=== PATIENT | female | born 1940 | race Caucasian/White ===

== ENCOUNTER 2024-07-19 19:56 | Emergency (ER) | payer MEDICARE, OTHER, SELFPAY ==
[2024-07-19 19:57] VITALS: BP 148/110; PULSE 93; PULSE 97; RESP 30; TEMP 36.8; O2SAT 100; O2SAT 97
--- NOTE | 2024-07-19 20:01 | XR_ITS ---
Examination: CTA chest, with intravenous contrast. CTA abdomen, with intravenous contrast. CTA pelvis, with intravenous contrast. 2-D sagittal and coronal reconstructions. 3-D reconstructions. Date and time of exam: July 20, 2024 0001 hrs. Indications: Onset chest pain shortness of breath abdominal pain today CTDI vol (mgy) 9.97 DLP (MGycm) 644 Technique: Multiple CTA images, 2.0 mm slice thickness, obtained chest, abdomen, pelvis, with the high-resolution 64 slice scanner. 100 cc Isovue-370 is administered intravenously. Sagittal and coronal 2-D reconstructions are obtained. 3-D reconstructions, angiographic images are obtained. 3-D postprocessing, including vascular maximum intensity projections. Low dose protocols were performed. One or more of the following dose reduction techniques were used; automated exposure control, adjustment of the mA and/or KV according to patient size, use of iterative reconstruction technique. Findings: Thoracic aortic calcification no aneurysmal dilatation No pulmonary artery emboli Bilateral foci of parenchymal opacity consistent with pneumonia, more prominent in the right lung Secretions in the right bronchi 17 mm right liver cyst, 16mm hypodense posterior right lobe liver lesion No intrahepatic biliary tract dilatation Gallbladder is not visualized No pancreatic or adrenal mass Mild right hydronephrosis, no ureteral calculi Heavy abdominal aortic calcification no aneurysmal dilatation No bowel obstruction No pericecal inflammatory change Atrophic uterus Distended urinary bladder Fat-containing left femoral hernia Hypodense right adnexal mass 3 cm Impression: No thoracic aortic aneurysm dilatation Negative for pulmonary artery emboli Scattered foci of pneumonia in both lungs 16mm hyperdense posterior right lobe liver lesion, consider MRI abdomen liver follow-up pre and postcontrast Mild right hydronephrosis no ureteral calculi No bowel obstruction appendicitis or diverticulitis pattern Recommend pelvic sonography to assess 3 cm hypodense right adnexal mass
[2024-07-19] MEDS: ALPRazoLAM 0.25 MG TABLET 0.5 MG PO (20:02)
[2024-07-19 20:44] VITALS: BMI 33.8
[2024-07-19 20:44] LABS: Basophils # (Auto) 0.1 Thou/mm3 (0.0-0.2); Basophils % (Auto) 1 % (0-2.5); Eosinophils # (Auto) 0.3 Thou/mm3 (0.0-0.5); Eosinophils % (Auto) 3 % (0-10); Hematocrit 25.6 % (36.0-46.0); Hemoglobin 7.9 g/dL (12.0-16.0); Immature Granulocytes % (Auto) 1 % (0-0); Immature Granulocytes Auto 0.05 Thou/mm3 (0.00-0.00); Lymphocytes # (Auto) 0.8 Thou/mm3 (1.0-4.8); Lymphocytes % (Auto) 8 % (10-50); Mean Corpuscular HGB Conc 30.9 g/dl (31.0-37.0); Mean Corpuscular Hemoglobin 24.2 pg (25.0-35.0); Mean Corpuscular Volume 79 fL (80-100); Monocytes # (Auto) 0.9 Thou/mm3 (0.0-0.8); Monocytes % (Auto) 9 % (0-12); Neutrophils # (Auto) 8.2 Thou/mm3 (1.8-7.7); Neutrophils % (Auto) 80 % (37-80); Nucleated Red Blood Cell % 0 /100 WBC (0); Platelet Count 291 Thou/mm3 (140-440); Red Blood Count 3.26 Miln/mm3 (4.00-5.20); White Blood Count 10.3 Thou/mm3 (3.6-11.0)
[2024-07-19 20:52] LABS: Collection Type, Urine Clean Catch; Squamous Epithelial Cell,Urine 0 /hpf (0-5)
[2024-07-19 20:54] LABS: Base Excess 0 (-3-3); HCO3 23 mEq/L (20-26); Inspired Oxygen, FIO2 21 %; O2 Saturation 98 % (91-98); PCO2 32 mmHg (32.0-48.0); PO2 83 mmHg (83-108); pH, Arterial 7.47 (7.35-7.45)
[2024-07-19 20:56] LABS: Allen Test Performed/OK; Puncture Site Right Radial
[2024-07-19 20:57] LABS: D-Dimer 511 ng/mL (<600)
[2024-07-19 21:00] LABS: Alanine Aminotransferase 12 U/L (10-49); Albumin, Serum 3.8 gm/dL (3.4-4.8); Albumin/Globulin Ratio 1.7 (1.2-2.2); Alkaline Phosphatase 128 U/L (46-116); Anion Gap 7 (7-16); Aspartate Amino Transferase 19 U/L (0-34); BUN/Creatinine Ratio 17 Ratio (12-20); Bilirubin,Total < 0.2 mg/dL (0.3-1.2); Blood Urea Nitrogen 20 mg/dL (9-23); Calcium 8.8 mg/dL (8.3-10.6); Carbon Dioxide 22.2 mMol/L (20.0-31.0); Chloride 106 mMol/L (98-107); Creatinine (Component) 1.2 mg/dL (0.6-1.3); Estimated Creatinine Clearance 34.4 mL/min (>60); Globulin 2.2 gm/dL (2.3-3.5); Glucose 98 mg/dL (74-106); Magnesium 1.9 mg/dL (1.6-2.6); Osmolality,Calculated 272 (275-295); Potassium 4.8 mMol/L (3.4-5.1); Sodium 135 mMol/L (136-145); Thyroid Stimulating Hormone 2.87 uIU/mL (0.55-4.78); Troponin I < 0.020 ng/mL (0.0-0.045); eGFR 44 See Note
[2024-07-19 21:15] LABS: Bilirubin,Urine Negative (Negative); Blood,Urine Negative (Negative); Clarity,Urine Clear (Clear/Hazy); Color,Urine Yellow (Lt Yel-Yel); Culture Indicated,Urine Not Indicated; Glucose, Urine Negative (Negative); Hyaline Casts,Urine < 1 /hpf (0-1); Ketones,Urine Negative (Negative); Leukocyte Esterase,Urine Negative (Negative); Nitrite,Urine Negative (Negative); PH,Urine 5.5 (5.0-7.0); Protein,Urine Negative (Neg - Trace); RBC,Urine < 1 /hpf (0-3); Urobilinogen,Urine Negative mg/dL (0.0-1.0); WBC,Urine 1 /hpf (0-5)
[2024-07-19 21:24] LABS: B-Type Natriuretic Peptide 120 pg/mL (0-100)
[2024-07-19] MEDS: DiphenhydrAMINE 25 MG CAPSULE 50 MG PO (21:27)
[2024-07-19 22:40] VITALS: BP 128/62; PULSE 92; RESP 22; TEMP 36.6; O2SAT 98
[2024-07-19] MEDS: LORazepam 2 MG/ML VIAL IVP (23:37)
[2024-07-19 23:38] VITALS: BP 163/70; PULSE 100; RESP 20; O2SAT 98
--- NOTE | 2024-07-20 00:11 | EDNOTE_ITS ---
ED SOB =RME/HPI General Chief Complaint: Shortness of Breath/Dyspnea Stated Complaint: SHORTNESS OF BREATH Time Seen by Provider: 07/19/24 20:00 Arrival date/time: 07/19/24 19:56 RME / HPI RME / HPI Narrative: This section includes all my notes and documentations, including HPI, PE, and ED course. Matty Church MD HPI: 83-year-old female here with about a week history of worsening cough, productive cough, purulent sputum, and dyspnea. No fever. No chest pain. No other complaints. ROS: All negative except as documented in HPI. Physical Exam: General: Alert and oriented. Appears severely anxious. Eyes: Conjunctivae and lids clear. EOMI. PERRL. ENT: No nasal congestion. Neck: Supple. No JVD. Heart: RRR. Lungs: No respiratory distress. Good air movement with rales. Abdomen: Soft and nontender. Back: No CVA tenderness. Legs: Lower leg edema. Skin: Warm and dry. Neuro: Alert and oriented X 3. Cranial Nerves II-XII grossly intact. No peripheral motor deficits. I reviewed all diagnostic test results. My interpretation of the EKG is sinus rhythm with nonspecific ST?T changes. My review of the CT report is multifocal pneumonia. Blood tests and urine tests unremarkable. At this point, diagnoses include pneumonia. Treatment here included Rocephin and Zithromax. Significant improvement noted. I discussed the case with our hospitalist. About the presentation and exam and diagnostics and treatments here. And need of further care in the hospital. After evaluation, declined to accept the patient because the patient does not meet the criteria for admission. Based on my best medical judgment, made decision no further evaluation or treatment indicated at this time. Patient understands and agrees to the discharge instructions customized and printed, see below. Discharge instructions from Dr. Church: --After evaluation, you have pneumonia. There is no life-threatening condition, such as heart attack or pulmonary embolism (blood clots in your lungs) or pneumothorax (collapsed lung). --We asked our hospitalist service to admit you into the hospital for treatment. But after evaluation, they declined because you don't meet the criteria for admission. --No physical exertion for 3 days to help rest the lungs. ?-No smoking or exposure to smoking or pets or dust or cold or humidity. --Zithromax and cefdinir to kill the germs causing the bronchitis. --Prednisone to help decrease the swelling in the airways. --See a private doctor on 07/23/2024 for recheck and further care. Ask for help until you are completely better. Ask to review all test results and official radiology reports, to make sure you receive all necessary follow-ups and monitoring. --Seek immediate medical care with worsening or with any concerns. Matty Church MD Related Data Home Medications ?Medication ?Instructions ?Recorded ?Confirmed amitriptyline 50 mg tablet 150 mg PO HS 06/24/21 04/16/24 cetirizine 10 mg tablet 10 mg PO QDAY 06/24/21 04/16/24 omeprazole 40 mg capsule,delayed 40 mg PO QDAY 06/24/21 04/16/24 release zolpidem 10 mg tablet 10 mg PO HS 06/24/21 04/16/24 silver sulfadiazine 1 % topical 1 applic topical BID 03/29/24 03/29/24 cream Previous Rx's ?Medication ?Instructions ?Recorded aspirin 81 mg tablet,delayed 81 mg PO QDAY 30 days #30 tabs 03/29/24 release prednisone 10 mg tablet See Taper PO QDAY rash #10 tabs 04/18/24 azithromycin 500 mg tablet 500 mg PO QDAY 3 days #3 tabs 07/20/24 (Zithromax TRI-GODWIN) cefdinir 300 mg capsule 300 mg PO BID #14 caps 07/20/24 prednisone 20 mg tablet 40 mg PO DAILY 3 days #6 tabs 07/20/24 Allergies Allergy/AdvReac Type Severity Reaction Status Date / Time clindamycin Allergy Intermediate Rash Verified 04/17/24 14:59 Penicillins Allergy Intermediate Rash Verified 03/28/24 15:33 Course Quality Measures none Orders Category Date Time Status Bedside COVID-19 Antigen Test NOW Care 07/19/24 20:01 Active Bedside Influenza A&B Antigen Test NOW Care 07/19/24 20:01 Completed EKG (ED ONLY) *Do not use* NOW Care 07/19/24 20:01 Completed Saline [Insert IV] NOW Care 07/19/24 20:01 Active Straight [In and Out Catheter] X1 Care 07/19/24 20:[address] angio chest abdomen pelvis Stat Exams 07/19/24 20:01 Taken EKG (ED Only) Stat Exams 07/19/24 20:01 Ordered ABG [Arterial Blood Gas] Stat Lab 07/19/24 20:50 Completed BNP [B-Type Natriuretic Peptide] Stat Lab 07/19/24 20:17 Completed CBC Stat Lab 07/19/24 20:17 Completed CMP [Comprehensive Metabolic Panel] Stat Lab 07/19/24 20:17 Completed D-Dimer Stat Lab 07/19/24 20:17 Completed Magnesium Stat Lab 07/19/24 20:17 Completed TSH [Thyroid Stimulating Hormone] Stat Lab 07/19/24 20:17 Completed Troponin I Stat Lab 07/19/24 20:17 Completed UA, C/S IF [Urinalysis, C/S if Indicated] Stat Lab 07/19/24 20:43 Completed ALPRazoLAM [Xanax] Med 07/19/24 20:00 Discontinued 0.5 mg PO X1 ONE Azithromycin Inj [Zithromax Inj] 500 mg Med 07/20/24 01:26 Active Sodium Chloride 0.9% 250 ml [Ns] 250 ml IV X1 DiphenhydrAMINE [Benadryl] Med 07/19/24 21:19 Discontinued 50 mg PO X1 ONE LORazepam [Ativan Inj] Med 07/19/24 23:32 Discontinued 2 mg IVP X1 ONE cefTRIAXone [Rocephin] 1,000 mg Med 07/20/24 01:26 Discontinued Sodium Chloride 0.9% (P) [Ns 0.9% (P)] 50 ml IV X1 Vital Signs Vital signs: Vital Signs Temperature 98.3 F 07/19/24 19:57 Pulse Rate 97 07/19/24 19:57 Respiratory Rate 30 H 07/19/24 19:57 Blood Pressure 148/110 H 07/19/24 19:57 Pulse Oximetry (%) 100 07/19/24 19:57 Oxygen Delivery Method Room Air 07/19/24 19:57 Shortness of Breath / Dyspnea Patient data External records reviewed:: [facility] previous records and EMS form Clinical information provided by:: patient, EMS and family Social determinants that could affect healthcare access:: none Patient has the following chronic illnesses:: History of CVA How is presenting disease/condition affected by chronic disease/condition?: uneffected by Evaluation data The following diagnostics were reviewed and interpreted by me:: lab results, radiology exam(s) and EKG tracing(s) (Sinus rhythm with nonspecific ST-T changes) Lab and/or radiology exams considered but not ordered:: None Interpretation Summary: Community-acquired pneumonia Medications / Prescriptions Medications or Prescriptions considered but not ordered:: None Medication administrations:: Medication Administration History Azithromycin 500 mg/ Sodium (Chloride) 250 mls @ 250 mls/hr IV X1 ONE Stop: 07/20/24 02:25 Discontinued Medications Alprazolam (Alprazolam 0.25 Mg Tablet) 0.5 mg PO X1 ONE Stop: 07/19/24 20:01 Last Admin: 07/19/24 20:02 Dose: 0.5 mg Documented By: ADAM Diphenhydramine HCl (Diphenhydramine 25 Mg Capsule) 50 mg PO X1 ONE Stop: 07/19/24 21:20 Last Admin: 07/19/24 21:27 Dose: 50 mg Documented By: ADAM Ceftriaxone Sodium 1,000 mg/ (Sodium Chloride) 50 mls @ 100 mls/hr IV X1 ONE Stop: 07/20/24 01:55 Last Admin: 07/20/24 01:40 Dose: 100 mls/hr Documented By: STACIE Lorazepam (Lorazepam 2 Mg/Ml Vial) 2 mg IVP X1 ONE Stop: 07/19/24 23:33 Last Admin: 07/19/24 23:37 Dose: 2 mg Documented By: JUAN Zithromax and Rocephin Consultations Consultation(s) initiated? (list below): No Diagnosis Shortness of Breath Differential Diagnosis: acute exacerbation of chronic obstructive airways disease, congestive heart failure, community acquired pneumonia, asthma with exacerbation and pulmonary embolism Most likely diagnosis given after review of the tests above:: Pneumonia Admission Indicated Admission indicated?: not indicated Explain why admission is indicated or not indicated:: Hospitalist service declined after evaluation Admission Request Was there a request for admission?: No Disposition Plan Disposition Plan: Discharge Discharge Attestation Discharge Attestation: The patient and all family members were given an opportunity to ask questions and understood the discharge instructions. Discharge instructions specifically effects, indications for sooner follow up or return to the emergency department, and the expected course of current diagnosis. Patient condition: Stable Discharge Plan Plan Patient Disposition: HOME (Self Care) Prescriptions/Referrals Prescriptions/Med Rec: New prednisone 20 mg tablet 40 mg PO DAILY 3 Days Qty: 6 0RF Taper: Prednisone Taper 20 mg DAILY for 2 Days and 0 Hour 10 mg DAILY for 2 Days and 0 Hour 5 mg DAILY for 7 Days and 0 Hour cefdinir 300 mg capsule 300 mg PO BID Qty: 14 0RF azithromycin [Zithromax TRI-GODWIN] 500 mg tablet 500 mg PO QDAY 3 Days Qty: 3 0RF No Action omeprazole 40 mg capsule,delayed release(DR/EC) 40 mg PO QDAY Patient Comments: TAKE ONE CAPSULE BY MOUTH EVERY DAY FOR GASTRITIS AND HEARTBURN cetirizine 10 mg tablet 10 mg PO QDAY Patient Comments: TAKE ONE TABLET BY MOUTH EVERY DAY FOR ALLERGY amitriptyline 50 mg tablet 150 mg PO HS Patient Comments: TAKE THREE TABLET BY MOUTH EVERY DAY AT BED TIME zolpidem 10 mg tablet 10 mg PO HS Patient Comments: TAKE ONE TABLET BY MOUTH EVERY DAY AT BED TIME prednisone 10 mg tablet See Taper PO QDAY Qty: 10 0RF Taper: Prednisone Taper 20 mg DAILY for 2 Days and 0 Hour 10 mg DAILY for 2 Days and 0 Hour 5 mg DAILY for 7 Days and 0 Hour silver sulfadiazine 1 % cream 1 applic TOPICAL BID Patient Comments: APPLY TO THE AFFECTED AREA(S) TRANSDERMALLY TWICE DAILY FOR BURN aspirin 81 mg Tablet,Delayed Release (Dr/Ec) 81 mg PO QDAY 30 Days Qty: 30 3RF Referrals: Pito (PCP),MD Carlito [Primary Care Provider] - In 1 week Problem List Clinical Impression: Pneumonia Patient/Caregiver Discharge Instructions Discharge Activity: activity as tolerated Education Materials: ED Pneumonia (Adult) Additional Instructions: Discharge instructions from Dr. Church: --After evaluation, you have pneumonia. There is no life-threatening condition, such as heart attack or pulmonary embolism (blood clots in your lungs) or pneumothorax (collapsed lung). --We asked our hospitalist service to admit you into the hospital for treatment. But after evaluation, they declined because you don't meet the criteria for admission. --No physical exertion for 3 days to help rest the lungs. ?-No smoking or exposure to smoking or pets or dust or cold or humidity. --Zithromax and cefdinir to kill the germs causing the bronchitis. --Prednisone to help decrease the swelling in the airways. --See a private doctor on 07/23/2024 for recheck and further care. Ask for help until you are completely better. Ask to review all test results and official radiology reports, to make sure you receive all necessary follow-ups and monitoring. --Seek immediate medical care with worsening or with any concerns. Print Language: Urdu Stand Alone Forms: [employer] Award Info., Patient Portal Info Letter
--- NOTE | 2024-07-20 00:50 | PRELIM_ITS ---
CT angiogram of the chest, abdomen and pelvis with intravenous contrast (axial sections with sagittal and coronal reformats) July 20, 2024 0001 hoursClinical History: Shortness of breath and abdomin al pain.Comparison: None.Findings:The thoracic aorta demonstrates mild atheromatous calcification wit hout evidence of dissection or aneurysm. The origins of the right brachiocephalic, left common caroti d and left subclavian arteries are patent.The abdominal aorta demonstrates mild atheromatous calcifi cation without evidence of dissection or aneurysm. The celiac, superior mesenteric, inferior mesenter ic and bilateral renal arteries are patent to the extent visualized. The common iliac, external yvonne c and internal iliac arteries are patent bilaterally.There is no filling defect within the pulmonary artery divisions to suggest pulmonary thromboembolism. No evidence of mediastinal mass or lymphadenop athy. There is no pericardial effusion.Consolidations in the bilateral lower lobes and in the right u pper lobe.Mucous plugging in the left lower lobe. No evidence of pleural effusion or pneumothorax. Th e spleen, pancreas, and adrenals are unremarkable.S/p cholecystectomy. Right liver lobe hypodense le antonia measuring 1.8 cm.Small hiatus hernia.Small left renal simple cyst. No hydronephrosis.No evidence of bowel obstruction. No evidence of appendicitis. There is no significant mesenteric or retroperi toneal adenopathy.The urinary bladder is unremarkable. There is no free fluid, free air or abscess. D egenerative changes of the imaged portions of the spine. No acute fractures.Dilated left atrium.Coron billie arteries calcifications.Right ovarian cystic lesion measuring 3.0 cm.Fecal loading.Impression:No evidence of aortic dissection or aneurysm.No evidence of pulmonary thromboembolism.Multifocal pneumon ia.Mucous plugging in the left lower lobe.Coronary arteries calcifications. If acute myocardial infa rction is clinically suspected consider correlation with troponin.Fecal loading.Right ovarian cystic lesion, follow-up with ultrasound is recommended.Small hiatus hernia.Hypodense liver lesion, follow-u p with MRI for characterization should be considered.Dilated left atrium. Report Electronically Nataliia d By: Subhash Shoemaker 07/20/2024 12:49:52 AM [EST]
[2024-07-20 01:26] VITALS: BP 117/59; PULSE 84; RESP 20; TEMP 36.5; O2SAT 97
[2024-07-20] MEDS: cefTRIAXone 1,000 MG in SODIUM CHLORIDE 0.9% (P) 50 ML 100 MG IV (01:40)
[2024-07-20] MEDS: AZITHROMYCIN INJ 500 MG in SODIUM CHLORIDE 0.9% 250 ML 250 ML 250 MG IV (02:18)
[2024-07-20 03:05] VITALS: BP 94/59; PULSE 83; RESP 16; TEMP 37.2; O2SAT 95
== END 2024-07-20 03:06 | disposition home or self-care (01) ==
PROVIDERS: Emergency Provider Emergency Medicine; PCP Family Medicine
DX: J18.9 Pneumonia, unspecified organism (principal)
CPT/HCPCS: 51701; 36415; 36600; 71275; 74174; 80053; 81001; 82803; 83735; 83880; 84443; 84484; 85025; 85379; 87400; 87811; 96360; 96365; 96367; 99285; A4649; J0456; J0696; J2060; J7050; Q9967; A9270

== ENCOUNTER → 2024-07-19 | Outpatient (CLI) | payer MEDICARE, OTHER, SELFPAY | END | disposition home or self-care (01) | LOC: SMRI 16:16 | PROVIDERS: Referring Provider Psychiatry & Neurology Neurology; Visit Provider Psychiatry & Neurology Neurology | DX: Z53.29 Procedure and treatment not carried out because of patient's decision for other reasons (principal) ==

== ENCOUNTER → 2024-07-19 | Outpatient (CLI) | payer MEDICARE, OTHER, SELFPAY ==
[2024-07-19 14:10] LABS: Anion Gap 7 (7-16); BUN/Creatinine Ratio 19 Ratio (12-20); Blood Urea Nitrogen 17 mg/dL (9-23); Calcium 8.7 mg/dL (8.3-10.6); Calcium (Corrected) 8.7 mg/dL (8.5-10.1); Carbon Dioxide 23.4 mMol/L (20.0-31.0); Chloride 108 mMol/L (98-107); Creatinine (Component) 0.9 mg/dL (0.6-1.3); Glucose 87 mg/dL (74-106); Osmolality,Calculated 276 (275-295); Phosphorous 2.7 mg/dL (2.4-5.1); Potassium 4.3 mMol/L (3.4-5.1); Sodium 138 mMol/L (136-145); eGFR > 60 See Note
== END | disposition home or self-care (01) ==
PROVIDERS: PCP Family Medicine; Referring Provider Family Medicine; Visit Provider Family Medicine
DX: Z00.00 Encounter for general adult medical examination without abnormal findings (principal); R53.83 Other fatigue; Z13.89 Encounter for screening for other disorder
CPT/HCPCS: 36415; 80069

== ENCOUNTER 2024-08-30 18:23 | Emergency (ER) | payer MEDICARE, OTHER, SELFPAY ==
[2024-08-30 18:33] VITALS: BP 154/62; PULSE 103; RESP 18; TEMP 36.8; O2SAT 98; BMI 20.7
--- NOTE | 2024-08-30 19:00 | EDNOTE_ITS ---
ED General RME/HPI General Chief complaint: Shortness of Breath/Dyspnea Stated complaint: SOB Time Seen by Provider: 08/30/24 18:53 Arrival date/time: 08/30/24 18:23 RME / HPI RME / HPI narrative: Dr. Rice?s Main ED Evaluation: 83yo female with no significant past medical history presents to the ED for vague complaints. Per EMS, they were called out due to the patient having right leg cramping. They noted the patient to be winded , so they administered 2 albuterol treatments en route. No other history provided at this time. Related Data Home Medications ?Medication ?Instructions ?Recorded ?Confirmed amitriptyline 50 mg tablet 150 mg PO HS 06/24/2104/16 cetirizine 10 mg tablet 10 mg PO QDAY 06/24/2104/16 omeprazole 40 mg capsule,delayed 40 mg PO QDAY 1 04/16/24 release zolpidem 10 mg tablet 10 mg PO HS 06/24/21 4 silver sulfadiazine 1 % topical 1 applic topical BID 0 03/29/24 03/29/24 cream Previous Rx's ?Medication ?Instructions ?Recorded aspirin 81 mg tablet,delayed 81 mg PO QDAY 30 days #30 tabs 03/29/24 release prednisone 10 mg tablet See Taper PO QDAY rash #10 t abs 04/18/24 cefdinir 300 mg capsule 300 mg PO BID #14 caps 07/20 Allergies Allergy/AdvReac Type Severity Reaction Status Date / Time clindamycin Allergy Intermediate Rash Verified 04/17/24 14:59 Penicillins Allergy Intermediate Rash Verified 03/28/24 15:33 Review of Systems Review of Systems Systems Reviewed: All systems reviewed, normal except as documented Past Medical History Past Medical History NEUROLOGIC: Positive Dementia; Negative Neurological Disorders or Seizures CARDIAC: Negative Cardiac Disorders or Congestive Heart Failure RESPIRATORY: Negative Chronic Obstructive Pulmonary Disease (COPD) or Asthma GASTROINTESTINAL: Positive Gastrointestinal Disorders and Gastroesophageal Reflux Disease GENITOURINARY: Negative Genitourinary Disorders or Renal Disease MUSCULOSKELETAL: Positive Musculoskeletal Disorders and Arthritis ENT: Positive Cataracts ENDOCRINE: Negative Endocrine Disorders, Diabetes Mellitus Type 1 or Diabetes Mellitus Type 2 HEMATOLOGIC: Negative Blood Disorders, Anemia or Sickle Cell Disease PSYCHO/SOCIAL: Positive Depression OTHER HISTORY: Positive Blood Transfusions, Blood Transfusion Reaction, Anesthesia Reactions and Chicken Pox Family History FAMILY HISTORY: Negative Family Psychiatric Problems, Family Respiratory Disorders or Family Gastrointestinal Problems Surgical History SURGICAL: Positive Cardiac Surgery, Carotid Endarterectomy, Oral Surgery and Tonsillectomy Social History SMOKING STATUS: Never smoker SUBSTANCE USE: does not use ED Exam Narrative Physical exam: GENERAL APPEARANCE: alert and oriented x 4, well-developed, well-nourished, no acute distress VITALS: All vitals were reviewed and the pulse ox is 98% on 6L/NC, which is abnormal according to my interpretation. HEENT: Normocephalic, atraumatic; pupils equal, round, reactive to light; EOMI; mucous membranes pink, moist; oropharynx clear NECK: Supple LUNGS: CTABL; no wheezes, no rales, no rhonchi HEART: Regular rate, regular rhythm; normal S1, S2; no murmurs ABDOMEN: non distended; normal BS; soft, no tenderness, no guarding, no rebound; no masses, no organomegaly, no hernia BACK: no CVA tenderness EXTREMITIES: atraumatic; 3+ pitting edema bilaterally NEUROLOGIC: awake; alert and oriented x4; cranial nerves II-XII grossly intact; no focal sensory or motor deficits PSYCHIATRIC: appropriate mood and affect SKIN: warm, dry, normal color; no rashes Course Quality Measures none Orders Category Date Time Status Bedside Blood Glucose NOW Care 08/30/24 19:38 Active Telephone Repairer NOW Care 08/30/24 19:38 Active Continuous Pulse Oximetry NOW Care 08/30/24 19:38 Completed Insert IV NOW Care 08/30/24 19:38 Active EKG (ED Only) Stat Exams 08/30/24 19:08 Stop Req US venous doppler LE RT Stat Exams 08/30/24 19:03 Completed Acetaminophen Stat Lab 08/30/24 21:00 Completed Alcohol, Blood Medical Stat Lab 08/30/24 21:00 Completed Ammonia Stat Lab 08/30/24 21:00 Completed BNP [B-Type Natriuretic Peptide] Stat Lab 08/30/24 21:00 Completed CBC Stat Lab 08/30/24 21:00 Completed Comprehensive Metabolic Panel Stat Lab 08/30/24 21:00 Completed Drug Screen,Urine Stat Lab 08/30/24 21:14 Completed Free T4 (Free Thyroxine) Stat Lab 08/30/24 21:00 Completed Magnesium Stat Lab 08/30/24 21:00 Completed Thyroid Stimulating Hormone Stat Lab 08/30/24 21:00 Completed Troponin I Stat Lab 08/30/24 21:00 Completed Urinalysis Stat Lab 08/30/24 21:15 Completed Acetaminophen Tab [Tylenol ES Tab] Med 08/30/24 19:09 Discontinued 1,000 mg PO X1 ONE Ibuprofen Tab [Motrin Tab] Med 08/30/24 19:09 Discontinued 600 mg PO X1 ONE Vital Signs Vital signs: Vital Signs Temperature 98.3 F 08/30/24 18:33 Pulse Rate 103 H 08/30/24 18:33 Respiratory Rate 18 08/30/24 18:33 Blood Pressure 154/62 H 08/30/24 18:33 Pulse Oximetry (%) 98 08/30/24 18:33 Oxygen Delivery Method Nasal Cannula 08/30/24 18:33 Oxygen Flow Rate 6 08/30/24 18:33 [facility] Patient data External records reviewed:: [facility] previous records (Per chart review, patient was seen here on 07/20/24 for pneumonia.) Clinical information provided by:: patient and EMS Social determinants that could affect healthcare access:: none Patient has the following chronic illnesses:: none How is presenting disease/condition affected by chronic disease/condition?: no chronic disease Evaluation data The following diagnostics were reviewed and interpreted by me:: lab results and radiology exam(s) Lab and/or radiology exams considered but not ordered:: none Interpretation Summary: WBC count is normal, CMP is normal, troponin is normal, BNP is 329, Free T4 is normal, TSH is normal, UA is unremarkable, UDS is negative, Blood Alcohol is negative, according to my interpretation. [facility] Report Signed Patient: WILVER WATSON. Record#: [id number] Birthdate: 1940 Age/Sex: 83 / F Location: [facility] [place] Attending Dr: Ordering Physician: Francis Rice MD Date of Service: 08/30/24 Procedure(s): US venous doppler ERIN PERDUE Accession Number(s): [id number] cc: Nish Meneses MD; Francis Rice MD~ Examination: Duplex scan of the lower extremity, unilateral right complete Date and time of exam: August 30, 20242024 hrs. Indications: Leg pain beginning 3 months ago Technique: Duplex scan of the extremity veins using B-mode/grayscale imaging and Doppler spectral analysis and color flow Attention is directed to internal echogenicity, compression and augmentation involving these veins, color flow assessment, spectral analysis Findings: Major deep venous structures in the extremity demonstrate normal course and caliber. There is no evidence of deep vein thrombosis. Normal color flow and spectral analysis Impression: Negative for DVT.. Dictated By: Nish Meneses MD Signed By: <Electronically signed by Nish Meneses MD in OV> 08/30/242057 Medications Medications considered but not ordered:: none Medication administrations:: Medication Administration History Discontinued Medications Acetaminophen (Acetaminophen 500 Mg Tablet) 1,000 mg PO X1 ONE Stop: 08/30/24 19:10 Last Admin: 08/30/24 19:33 Dose: 1,000 mg Documented By: EVELYNE Ibuprofen (Ibuprofen Tab 600 Mg Tablet) 600 mg PO X1 ONE Stop: 08/30/24 19:10 Last Admin: 08/30/24 19:33 Dose: 600 mg Documented By: EVELYNE see above Consultations Consultation(s) initiated? (list below): No Diagnosis Differential Diagnosis ED Complaint MDM: DVT, musculoskeletal pain, contusion Most likely diagnosis given after review of the tests above:: see below Admission Indicated Admission indicated?: not indicated Explain why admission is indicated or not indicated:: Admission criteria not met. Admission Request Was there a request for admission?: No Disposition Plan Disposition Plan: Discharge Discharge Attestation Discharge Attestation: The patient and all family members were given an opportunity to ask questions and understood the discharge instructions. Discharge instructions specifically effects, indications for sooner follow up or return to the emergency department, and the expected course of current diagnosis. Patient condition: Stable Medical Decision Making Differential Diagnosis Differential Diagnosis: DVT, musculoskeletal pain, contusion Lab Data 08/30/24 21:00 08/30/24 21:00 Labs: Lab Results 08/30/24 08/30/24 08/30/24 Range/Units 21:00 21:14 21:15 WBC 11.0 (3.6-11.0) Thou/mm3 RBC 3.41 L (4.00-5.20) Miln/mm3 Hgb 7.6 L (12.0-16.0) g/dL Hct 26.1 L (36.0-46.0) % MCV 77 L (80-100) fL MCH 22.3 L (25.0-35.0) pg MCHC 29.1 L (31.0-37.0) g/dl RDW Std Deviation 46.5 H (36.4-46.3) fL Plt Count 499 H (140-440) Thou/mm3 Neut % (Auto) 75 (37-80) % Lymph % (Auto) 9 L (10-50) % [place] % (Auto) 12 (0-12) % Eos % (Auto) 3 (0-10) % Baso % (Auto) 1 (0-2.5) % Neut # (Auto) 8.3 H (1.8-7.7) Thou/mm3 Lymph # (Auto) 1.0 (1.0-4.8) Thou/mm3 [place] # (Auto) 1.3 H (0.0-0.8) Thou/mm3 Eos # (Auto) 0.3 (0.0-0.5) Thou/mm3 Baso # (Auto) 0.1 (0.0-0.2) Thou/mm3 Immature Gran # (Auto) 0.05 H (0.00-0.00) Thou/mm3 Absolute Nucleated RBC 0.00 (0.00-0.00) Thou/mm3 Immature Gran % 1 H (0-0) % Nucleated RBC % 0 (0) /100 WBC Sodium 140 (136-145) mMol/L Potassium 4.0 (3.4-5.1) mMol/L Chloride 109 H (98-107) mMol/L Carbon Dioxide 22.4 (20.0-31.0) mMol/L Anion Gap 9 (7-16) BUN 19 (9-23) mg/dL Creatinine 0.7 (0.6-1.3) mg/dL Estim Creat Clear Calc 42.2 L (>60) mL/min eGFR > 60 (60 - ) See Note BUN/Creatinine Ratio 27 H (12-20) Ratio Glucose 94 (74-106) mg/dL Calculated Osmolality 281 (275-295) Calcium 8.3 (8.3-10.6) mg/dL Corrected Calcium 8.3 L (8.5-10.1) mg/dL Magnesium 1.9 (1.6-2.6) mg/dL Total Bilirubin < 0.2 L (0.3-1.2) mg/dL AST 23 (0-34) U/L ALT 27 (10-49) U/L Alkaline Phosphatase 129 H (46-116) U/L Ammonia < 10 L (11-32) uMol/L Troponin I 0.030 (0.0-0.045) ng/mL B-Natriuretic Peptide 329 H (0-100) pg/mL Total Protein 6.5 (5.7-8.2) gm/dL Albumin 4.0 (3.4-4.8) gm/dL Globulin 2.5 (2.3-3.5) gm/dL Albumin/Globulin Ratio 1.6 (1.2-2.2) TSH 2.07 (0.55-4.78) uIU/mL Free T4 1.05 (0.89-1.76) ng/dL Ur Collection Type Catheter Urine Color Lt-Yellow (Lt Yel-Yel) Urine Clarity Clear (Clear/Hazy) Urine pH 5.5 (5.0-7.0) Ur Specific [place] 1.025 (1.001-1.035) Urine Protein Negative (Neg - Trace) Urine Glucose (UA) Negative (Negative) Urine Ketones Negative (Negative) Urine Blood Negative (Negative) Urine Nitrite Negative (Negative) Urine Bilirubin Negative (Negative) Urine Urobilinogen (Auto) Negative (0.0-1.0) mg/dL Ur Leukocyte Esterase Negative (Negative) Urine RBC < 1 (0-3) /hpf Urine WBC < 1 (0-5) /hpf Ur Squamous Epith Cells 1 (0-5) /hpf Urine Bacteria None (None) Urine Opiates Screen Negative (Negative) Urine Fentanyl Screen Negative (Negative) Acetaminophen 14.3 (10.0-20.0) mcg/mL Ur Barbiturates Screen Negative (Negative) U Amphetamin/Meth Scrn Negative (Negative) U Benzodiazepines Scrn Negative (Negative) U Cocaine Metab Screen Negative (Negative) U Marijuana (THC) Screen Negative (Negative) Ethyl Alcohol < 3.0 (0-10.0) mg/dL Discharge Plan Plan Patient Disposition: HOME (Self Care) Disposition Comment: Stable for discharge Patient condition on transfer: Stable Prescriptions/Referrals Prescriptions/Med Rec: No Action omeprazole 40 mg capsule,delayed release(DR/EC) 40 mg PO QDAY Patient Comments: TAKE ONE CAPSULE BY MOUTH EVERY DAY FOR GASTRITIS AND HEARTBURN cetirizine 10 mg tablet 10 mg PO QDAY Patient Comments: TAKE ONE TABLET BY MOUTH EVERY DAY FOR ALLERGY amitriptyline 50 mg tablet 150 mg PO HS Patient Comments: TAKE THREE TABLET BY MOUTH EVERY DAY AT BED TIME zolpidem 10 mg tablet 10 mg PO HS Patient Comments: TAKE ONE TABLET BY MOUTH EVERY DAY AT BED TIME prednisone 10 mg tablet See Taper PO QDAY Qty: 10 0RF Taper: Prednisone Taper 20 mg DAILY for 2 Days and 0 Hour 10 mg DAILY for 2 Days and 0 Hour 5 mg DAILY for 7 Days and 0 Hour silver sulfadiazine 1 % cream 1 applic TOPICAL BID Patient Comments: APPLY TO THE AFFECTED AREA(S) TRANSDERMALLY TWICE DAILY FOR BURN aspirin 81 mg Tablet,Delayed Release (Dr/Ec) 81 mg PO QDAY 30 Days Qty: 30 3RF cefdinir 300 mg capsule 300 mg PO BID Qty: 14 0RF Referrals: Pito (PCP),MD Carlito [Primary Care Provider] - In 1 week Problem List Clinical Impression: Chronic leg pain, Chronic pain Patient/Caregiver Discharge Instructions Discharge Activity: activity as tolerated Education Materials: Medicine for Pain, Chronic Pain Therapies Mind Body, ED Chronic Pain, ED Myalgias, ED RICE Additional Instructions: Please return to the emergency department for any worsening or any further medical problems Otherwise you should follow-up with your primary care doctor within the next several days Print Language: Mongolian Stand Alone Forms: [employer] Award Info., Patient Portal Info Letter
--- NOTE | 2024-08-30 19:03 | XR_ITS ---
Examination: Duplex scan of the lower extremity, unilateral right complete Date and time of exam: August 30, 2024 202 hrs. Indications: Leg pain beginning 3 months ago Technique: Duplex scan of the extremity veins using B-mode/grayscale imaging and Doppler spectral analysis and color flow Attention is directed to internal echogenicity, compression and augmentation involving these veins, color flow assessment, spectral analysis Findings: Major deep venous structures in the extremity demonstrate normal course and caliber. There is no evidence of deep vein thrombosis. Normal color flow and spectral analysis Impression: Negative for DVT..
[2024-08-30 19:13] VITALS: PULSE 86; RESP 20; O2SAT 99
[2024-08-30 19:19] VITALS: BP 140/63; PULSE 60; RESP 24; TEMP 36.7; O2SAT 98
[2024-08-30] MEDS: ACETAMINOPHEN 500 MG TABLET 1000 MG PO (19:33)
[2024-08-30] MEDS: IBUPROFEN TAB 600 MG TABLET PO (19:33)
--- NOTE | 2024-08-30 20:15 | PC.LAC ---
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 Pt in hallway awaiting for room to be clean.
[2024-08-30 21:13] VITALS: BP 137/69; PULSE 82; RESP 22; TEMP 36.6; O2SAT 100
[2024-08-30 21:23] LABS: Collection Type, Urine Catheter
[2024-08-30 21:28] LABS: Bilirubin,Urine Negative (Negative); Blood,Urine Negative (Negative); Clarity,Urine Clear (Clear/Hazy); Color,Urine Lt-Yellow (Lt Yel-Yel); Glucose, Urine Negative (Negative); Ketones,Urine Negative (Negative); Leukocyte Esterase,Urine Negative (Negative); Nitrite,Urine Negative (Negative); PH,Urine 5.5 (5.0-7.0); Protein,Urine Negative (Neg - Trace); RBC,Urine < 1 /hpf (0-3); Specific Gravity,Urine 1.025 (1.001-1.035); Squamous Epithelial Cell,Urine 1 /hpf (0-5); Urobilinogen,Urine Negative mg/dL (0.0-1.0); WBC,Urine < 1 /hpf (0-5)
[2024-08-30 21:30] LABS: Basophils # (Auto) 0.1 Thou/mm3 (0.0-0.2); Basophils % (Auto) 1 % (0-2.5); Eosinophils # (Auto) 0.3 Thou/mm3 (0.0-0.5); Eosinophils % (Auto) 3 % (0-10); Hematocrit 26.1 % (36.0-46.0); Immature Granulocytes % (Auto) 1 % (0-0); Immature Granulocytes Auto 0.05 Thou/mm3 (0.00-0.00); Lymphocytes % (Auto) 9 % (10-50); Mean Corpuscular HGB Conc 29.1 g/dl (31.0-37.0); Mean Corpuscular Hemoglobin 22.3 pg (25.0-35.0); Mean Corpuscular Volume 77 fL (80-100); Monocytes # (Auto) 1.3 Thou/mm3 (0.0-0.8); Monocytes % (Auto) 12 % (0-12); Neutrophils # (Auto) 8.3 Thou/mm3 (1.8-7.7); Neutrophils % (Auto) 75 % (37-80); Nucleated Red Blood Cell % 0 /100 WBC (0); Platelet Count 499 Thou/mm3 (140-440); RDW Standard Deviation 46.5 fL (36.4-46.3); Red Blood Count 3.41 Miln/mm3 (4.00-5.20)
[2024-08-30 21:34] LABS: Amphetamine/Methamp Scrn,U Negative (Negative); Barbiturate Screen,Urine Negative (Negative); Benzodiazepines Screen,Urine Negative (Negative); Benzoylecgonine Screen, Ur Negative (Negative); Fentanyl Screen,Urine Negative (Negative); Opiate Screen,Urine Negative (Negative); THC Screen,Urine Negative (Negative)
[2024-08-30 21:35] LABS: Hemoglobin 7.6 g/dL (12.0-16.0)
[2024-08-30 21:53] LABS: Acetaminophen 14.3 mcg/mL (10.0-20.0); Alanine Aminotransferase 27 U/L (10-49); Albumin/Globulin Ratio 1.6 (1.2-2.2); Alcohol, Blood Medical < 3.0 mg/dL (0-10.0); Alkaline Phosphatase 129 U/L (46-116); Ammonia < 10 uMol/L (11-32); Anion Gap 9 (7-16); Aspartate Amino Transferase 23 U/L (0-34); BUN/Creatinine Ratio 27 Ratio (12-20); Bilirubin,Total < 0.2 mg/dL (0.3-1.2); Blood Urea Nitrogen 19 mg/dL (9-23); Calcium 8.3 mg/dL (8.3-10.6); Calcium (Corrected) 8.3 mg/dL (8.5-10.1); Carbon Dioxide 22.4 mMol/L (20.0-31.0); Chloride 109 mMol/L (98-107); Creatinine (Component) 0.7 mg/dL (0.6-1.3); Estimated Creatinine Clearance 42.2 mL/min (>60); Free T4 (Free Thyroxine) 1.05 ng/dL (0.89-1.76); Globulin 2.5 gm/dL (2.3-3.5); Glucose 94 mg/dL (74-106); Magnesium 1.9 mg/dL (1.6-2.6); Osmolality,Calculated 281 (275-295); Sodium 140 mMol/L (136-145); Thyroid Stimulating Hormone 2.07 uIU/mL (0.55-4.78); Total Protein 6.5 gm/dL (5.7-8.2); eGFR > 60 See Note
[2024-08-30 22:01] LABS: B-Type Natriuretic Peptide 329 pg/mL (0-100)
[2024-08-31 00:05] VITALS: BP 143/73; PULSE 78; RESP 187; TEMP 36.6; O2SAT 98
--- NOTE | 2024-08-31 00:15 | PC.NURSE ---
Pt ready for discharge home, Ankita (dtr) informed.
== END 2024-08-31 01:06 | disposition home or self-care (01) ==
PROVIDERS: Emergency Provider Emergency Medicine; PCP Family Medicine
DX: M79.604 Pain in right leg (principal); G89.29 Other chronic pain; R06.02 Shortness of breath
CPT/HCPCS: 36415; 80053; 80307; 80320; 80329; 81001; 82140; 83735; 83880; 84439; 84443; 84484; 85025; 87400; 87811; 93971; 99284; A9270; G0480

== ENCOUNTER → 2024-09-08 | Outpatient (CLI) | payer MEDICARE, OTHER, SELFPAY ==
--- NOTE | 2024-09-08 14:30 | XR_ITS ---
Examination: MRI of brain without intravenous contrast. MRI brain with intravenous contrast. Date and time of exam:September 08, 2024 1535 hrs. Indications: Increasing memory loss headaches dizziness years Technique: Multiple axial and sagittal images of the brain to been obtained. Siemens high-resolution 1.52 Luisa short bore scanner utilized. Sagittal sections, T1 weighted images, TR 500, TE 14, are performed. Axial sections proton-density and T2-weighted images have been obtained. Inversion recovery axial images, TR 9260, TE 111, TR 2500. Diffusion weighted images, axial sections, TR 4800, TE 128, B value 1000. Axial sections, ADC map, TR 4800, TE 128. Axial and coronal images were also obtained post 11 cc gadolinium administered intravenously. Findings:: Enlargement of the sella turcica is not present. The optic chiasm and infundibular stalk are not remarkable. There is no localized enlargement of the medulla or merary. Fourth ventricle and cerebellar tonsils appear normal in position. No subacute area of hemorrhage density is seen. Fourth ventricle is midline. Mass in the cerebellopontine angle region is not evident. 7th and 8th nerve complexes exhibit symmetry Globes are symmetrical Orbital musculature including medial lateral rectus muscles do not exhibit abnormality Increased white matter signal is mild Effacement of the cortical sulcal markings is not identified. Mass effect upon the ventricular system is not identified. Diffusion-weighted images demonstrate no focus of restricted diffusion Prominent mastoiditis Contrast images demonstrate no abnormal enhancing cerebellar or cerebral lesions Impression: Negative for acute hemorrhage mass effect or midline shift No acute infarct Significant bilateral mastoiditis
== END | disposition home or self-care (01) ==
PROVIDERS: PCP Family Medicine; Referring Provider Psychiatry & Neurology Neurology; Visit Provider Psychiatry & Neurology Neurology
DX: H70.93 Unspecified mastoiditis, bilateral (principal)
CPT/HCPCS: 70553; A9579

== ENCOUNTER 2024-09-22 12:55 | Emergency (ER) | payer MEDICARE, OTHER, SELFPAY ==
[2024-09-22 13:01] VITALS: PULSE 87; RESP 18; O2SAT 97; BMI 22.8
[2024-09-22 13:25] VITALS: BP 161/81; PULSE 83; RESP 20; TEMP 36.6; O2SAT 99
--- NOTE | 2024-09-22 13:27 | PC.NURSE ---
Pt. here from home to room 4, pt. states she lives with her . Pt. is a GCS of 14, pt. states she is here because of her daughter Ankita. Pt. has severe swelling to her lower extremities bilateral. Pt. came with pressure dressings to her lower extremities bilateral. Dressings are dry and intact. Dr. Phillips removed dressings to lower extremities. Pt. left lower leg has brown skin that is flaking. Edema to lower extremities is +4, skin is very tight, red and shiny. Pt. has +4 edema to both knees, pt. states right knee is bothering her, pt. states she had surgery on left knee as a kid. Pt. states she lives with her and smocking machine operator Omar states that there is not a . Pt. just keeps saying that her right knee hurts her. Pt. states she does walk. Laboratory Operations Coordinator Omar states that pt.'s neighbor called pt.'s daughter Ankita because pt. was walking around outside with her purse talking and was confused.
--- NOTE | 2024-09-22 13:59 | XR_ITS ---
Exam: Chest 1 view, AP Date and time of exam: 09/22/2024, 1:16 PM Comparison: 04/04/2024 Findings: Normal heart size. No mediastinal adenopathy. No acute fracture No pulmonary edema or pneumonia. Chronic interstitial changes. Impression: No active disease.
--- NOTE | 2024-09-22 14:00 | XR_ITS ---
Examination: CT brain head without contrast. 2-D sagittal coronal reconstructions Date and time of exam:09/22/2024, 2:18 PM CTDI: vol (mGy):47.5 DLP: (mGycm):947 COMPARISON: 03/28/2024 INDICATION: Mental status changes Technique: Multiple CT axial sections of the brain have been obtained, 5 mm slice thickness. Contrast has not been administered. 2-D sagittal, coronal reconstructions have been obtained Low dose protocols were performed. One or more of the following dose reduction techniques were used; automated exposure control, adjustment of the mA and/or KV according to patient size, use of iterative reconstruction technique. Findings: No significant ventricular enlargement. Intra-axial or extra-axial hemorrhage density is not seen. No mass effect or midline shift Basal cisterns are not remarkable. Fourth ventricle is midline. Cranial vault intact. Impression: Negative for acute hemorrhage, mass effect or midline shift
[2024-09-22 14:15] VITALS: BP 153/63; PULSE 76; RESP 18; TEMP 36.7; O2SAT 96
--- NOTE | 2024-09-22 14:17 | PD.EDADULT ---
ED General RME/HPI General Chief complaint: Altered Mental Status Stated complaint: AMS Arrival date/time: 09/22/24 12:55 RME / HPI RME / HPI narrative: Patient is a 83 years old female with PMH of chronic lymphedema presented to the ED BIBA from home after her neighbour found her wandering around and mumbling incoherently. She reports she was feeling fine until someone called ambulance on her. She denies any complaints other then her chronic right knee pain and BLE swelling and erythema with scaling, which started recently and she was prescribed antibiotics. She denies any dysuria symptoms, chest pain, SOB, abdominal pain, nausea, vomiting, diarrhea. She is AAO x1 to self only. Daughter was contacted over the phone reporting her neighbour called her when she saw her wandering around and mumbling, she decided to call 911. Related Data Home Medications ?Medication ?Instructions ?Recorded ?Confirmed amitriptyline 50 mg tablet 150 mg PO HS 06/24/21 04/16/24 cetirizine 10 mg tablet 10 mg PO QDAY 06/24/21 04/16/24 omeprazole 40 mg capsule,delayed 40 mg PO QDAY 06/24/21 04/16/24 release zolpidem 10 mg tablet 10 mg PO HS 06/24/21 04/16/24 silver sulfadiazine 1 % topical 1 applic topical BID 03/29/24 03/29/24 cream Previous Rx's ?Medication ?Instructions ?Recorded aspirin 81 mg tablet,delayed 81 mg PO QDAY 30 days #30 tabs 03/29/24 release prednisone 10 mg tablet See Taper PO QDAY rash #10 tabs 04/18/24 cefdinir 300 mg capsule 300 mg PO BID #14 caps 07/20/24 Allergies Allergy/AdvReac Type Severity Reaction Status Date / Time clindamycin Allergy Intermediate Rash Verified 04/17/24 14:59 Penicillins Allergy Intermediate Rash Verified 03/28/24 15:33 Review of Systems Review of Systems Systems Reviewed: All systems reviewed, normal except as documented ED Exam Narrative Physical exam: Gen: Well-developed and well-nourished elderly female. HEENT: NCAT, PERRLA, EOMI, MMM, anicteric conjunctivae. CVS: normal S1 and S2. RRR. Systolic murmur over aortic area. Resp: CTA B/L. No rhonchi, rales, crackles or wheezing. Abd: soft, non-tender, non-distended. BS+ in all 4 quadrants. MSK: Good ROM in BUE & BLE. Non-pitting edema and erythema with scaling of the skin over BLE. Neuro: CN II-XII grossly intact. Strength 5/5 in BUE & BLE. Alert and oriented x1 to self only. Course Course Course Narrative: Daughter (decision maker) was contacted over the phone and condition of the patient was discussed, she was explained that it is not safe to discharge patient home to stay alone. Daughter asked if we can admit patient or discharge her to SNF, given current circumstances it will be difficult for her to take care of the patient. She was explained that the patient does not meet admission criteria and cannot be discharged to SNF from the ED. She ultimately agreed to take patient home and stay with her until her PCP can place her to SNF. Quality Measures none Orders Category Date Time Status CT Screening X1 Care 09/22/24 14:00 Completed Insert IV NOW Care 09/22/24 13:[address] head/brain wo con Stat Exams 09/22/24 14:00 Completed CXRP [XR chest 1V portable] Stat Exams 09/22/24 13:59 Completed CBC Stat Lab 09/22/24 15:58 Completed CMP [Comprehensive Metabolic Panel] Stat Lab 09/22/24 13:50 Completed Urinalysis Stat Lab 09/22/24 15:22 Completed Sodium Chloride 0.9% 250 ml [Ns] 250 ml Med 09/22/24 15:43 Discontinued IV 999 mls/hr Vital Signs Vital signs: Vital Signs Temperature 97.9 F 09/22/24 13:25 Pulse Rate 83 09/22/24 13:25 Respiratory Rate 20 09/22/24 13:25 Blood Pressure 161/81 H 09/22/24 13:25 Pulse Oximetry (%) 99 09/22/24 13:25 Oxygen Delivery Method Room Air 09/22/24 13:25 [facility] Patient data External records reviewed:: [facility] previous records and EMS form Clinical information provided by:: patient, EMS and family Social determinants that could affect healthcare access:: housing Patient has the following chronic illnesses:: Chronic lymphedema How is presenting disease/condition affected by chronic disease/condition?: uneffected by Evaluation data The following diagnostics were reviewed and interpreted by me:: lab results and radiology exam(s) Lab and/or radiology exams considered but not ordered:: Brain MRI Interpretation Summary: Mild hyperkalemia Medications Medications considered but not ordered:: Kayexalate Medication administrations:: Medication Administration History Discontinued Medications Sodium Chloride (Ns) 250 mls @ 999 mls/hr IV .Q16M ONE Stop: 09/22/24 15:58 Last Infusion: 09/22/24 16:06 Dose: Infused Documented By: Admin: 09/22/24 15:50 Dose: 999 mls/hr Documented By: ED NS 250 cc IV x1. Consultations Consultation(s) initiated? (list below): No Diagnosis Differential Diagnosis ED Complaint MDM: CVA, worsening underlying dementia, medication/substance induced encephalop Most likely diagnosis given after review of the tests above:: Worsening underlying dementia. Admission Indicated Admission indicated?: not indicated Explain why admission is indicated or not indicated:: Patient presented with AMS, was AAO x1 to self only and was fixating on specific things. She was recently evaluated by neurology, MRI of the brain was performed Admission Request Was there a request for admission?: No Disposition Plan Disposition Plan: Discharge Discharge Attestation Discharge Attestation: The patient and all family members were given an opportunity to ask questions and understood the discharge instructions. Discharge instructions specifically effects, indications for sooner follow up or return to the emergency department, and the expected course of current diagnosis. Patient condition: Stable Medical Decision Making MDM Narrative MDM Narrative: Patient does not meet any admission criteria, her AMS is likely due to worsening of underlying undiagnosed dementia. Patient needs customer operations manager and her daughter agreed to take care of her until her PCP can place her to SNF. We will not change her antibiotic regiment for possible cellulitis and home medications. She does not have any sustemic signs of infection like fever or leukocytosis. She is at low suspicion for stroke given her clinical picture and her CT scan was negative for acute hemorrhage. Differential Diagnosis Differential Diagnosis: CVA, worsening underlying dementia, medication/substance induced encephalop Lab Data 09/22/24 15:58 09/22/24 13:50 Labs: Lab Results 09/22/24 09/22/24 09/22/24 Range/Units 13:50 15:22 15:58 WBC 9.4 (3.6-11.0) Thou/mm3 RBC 3.38 L (4.00-5.20) Miln/mm3 Hgb 7.3 L (12.0-16.0) g/dL Hct 24.3 L (36.0-46.0) % MCV 72 L (80-100) fL MCH 21.6 L (25.0-35.0) pg MCHC 30.0 L (31.0-37.0) g/dl RDW Std Deviation 44.3 (36.4-46.3) fL Plt Count 386 D (140-440) Thou/mm3 Neut % (Auto) 78 (37-80) % Lymph % (Auto) 10 (10-50) % [place] % (Auto) 10 (0-12) % Eos % (Auto) 1 (0-10) % Baso % (Auto) 1 (0-2.5) % Neut # (Auto) 7.3 (1.8-7.7) Thou/mm3 Lymph # (Auto) 0.9 L (1.0-4.8) Thou/mm3 [place] # (Auto) 0.9 H (0.0-0.8) Thou/mm3 Eos # (Auto) 0.1 (0.0-0.5) Thou/mm3 Baso # (Auto) 0.1 (0.0-0.2) Thou/mm3 Immature Gran # (Auto) 0.02 H (0.00-0.00) Thou/mm3 Absolute Nucleated RBC 0.00 (0.00-0.00) Thou/mm3 Immature Gran % 0 (0-0) % Nucleated RBC % 0 (0) /100 WBC Sodium 141 (136-145) mMol/L Potassium 5.8 H (3.4-5.1) mMol/L Chloride 108 H (98-107) mMol/L Carbon Dioxide 24.1 (20.0-31.0) mMol/L Anion Gap 9 (7-16) BUN 24 H (9-23) mg/dL Creatinine 1.1 (0.6-1.3) mg/dL Estim Creat Clear Calc 28.2 L (>60) mL/min eGFR 49 L (60 - ) See Note BUN/Creatinine Ratio 22 H (12-20) Ratio Glucose 111 H (74-106) mg/dL Calculated Osmolality 286 (275-295) Calcium 9.5 (8.3-10.6) mg/dL Corrected Calcium 9.5 (8.5-10.1) mg/dL Total Bilirubin 0.2 L (0.3-1.2) mg/dL AST 36 H (0-34) U/L ALT 21 (10-49) U/L Alkaline Phosphatase 130 H (46-116) U/L Total Protein 7.3 (5.7-8.2) gm/dL Albumin 4.6 (3.4-4.8) gm/dL Globulin 2.7 (2.3-3.5) gm/dL Albumin/Globulin Ratio 1.7 (1.2-2.2) Ur Collection Type Clean Catch Urine Color Lt-Yellow (Lt Yel-Yel) Urine Clarity Clear (Clear/Hazy) Urine pH 7.0 (5.0-7.0) Ur Specific [place] 1.016 (1.001-1.035) Urine Protein Negative (Neg - Trace) Urine Glucose (UA) Negative (Negative) Urine Ketones Negative (Negative) Urine Blood Negative (Negative) Urine Nitrite Negative (Negative) Urine Bilirubin Negative (Negative) Urine Urobilinogen (Auto) Negative (0.0-1.0) mg/dL Ur Leukocyte Esterase Negative (Negative) Urine RBC 1 (0-3) /hpf Urine WBC 1 (0-5) /hpf Ur Squamous Epith Cells 0 (0-5) /hpf Urine Bacteria None (None) Hyaline Casts < 1 (0-1) /hpf Discharge Plan Plan Patient Disposition: HOME (Self Care) Patient condition on transfer: Stable Prescriptions/Referrals Prescriptions/Med Rec: No Action omeprazole 40 mg capsule,delayed release(DR/EC) 40 mg PO QDAY Patient Comments: TAKE ONE CAPSULE BY MOUTH EVERY DAY FOR GASTRITIS AND HEARTBURN cetirizine 10 mg tablet 10 mg PO QDAY Patient Comments: TAKE ONE TABLET BY MOUTH EVERY DAY FOR ALLERGY amitriptyline 50 mg tablet 150 mg PO HS Patient Comments: TAKE THREE TABLET BY MOUTH EVERY DAY AT BED TIME zolpidem 10 mg tablet 10 mg PO HS Patient Comments: TAKE ONE TABLET BY MOUTH EVERY DAY AT BED TIME prednisone 10 mg tablet See Taper PO QDAY Qty: 10 0RF Taper: Prednisone Taper 20 mg DAILY for 2 Days and 0 Hour 10 mg DAILY for 2 Days and 0 Hour 5 mg DAILY for 7 Days and 0 Hour silver sulfadiazine 1 % cream 1 applic TOPICAL BID Patient Comments: APPLY TO THE AFFECTED AREA(S) TRANSDERMALLY TWICE DAILY FOR BURN aspirin 81 mg Tablet,Delayed Release (Dr/Ec) 81 mg PO QDAY 30 Days Qty: 30 3RF cefdinir 300 mg capsule 300 mg PO BID Qty: 14 0RF Referrals: Pito (PCP),MD Carlito [Primary Care Provider] - In 1 week Problem List Clinical Impression: Altered mental status Patient/Caregiver Discharge Instructions Other Activity Instructions:: Continue home medications as prescribed. Follow up with PCP within 1 week. Return to the ED if symptoms worsen. Print Language: [place]an Stand Alone Forms: [employer] Award Info., Patient Portal Info Letter MD Attestation Attestation The patient was seen by the PGY 2. I, the supervising physician, also encountered and examined the patient and remained present during the entire ER visit. With the PGY 2 we formulated the encounter, workup, management, treatment, and medical decision making. I agree with the plan and documentation.
[2024-09-22 14:29] LABS: Alanine Aminotransferase 21 U/L (10-49); Albumin, Serum 4.6 gm/dL (3.4-4.8); Albumin/Globulin Ratio 1.7 (1.2-2.2); Alkaline Phosphatase 130 U/L (46-116); Anion Gap 9 (7-16); Aspartate Amino Transferase 36 U/L (0-34); BUN/Creatinine Ratio 22 Ratio (12-20); Bilirubin,Total 0.2 mg/dL (0.3-1.2); Blood Urea Nitrogen 24 mg/dL (9-23); Calcium 9.5 mg/dL (8.3-10.6); Calcium (Corrected) 9.5 mg/dL (8.5-10.1); Carbon Dioxide 24.1 mMol/L (20.0-31.0); Chloride 108 mMol/L (98-107); Creatinine (Component) 1.1 mg/dL (0.6-1.3); Estimated Creatinine Clearance 28.2 mL/min (>60); Globulin 2.7 gm/dL (2.3-3.5); Glucose 111 mg/dL (74-106); Osmolality,Calculated 286 (275-295); Potassium 5.8 mMol/L (3.4-5.1); Sodium 141 mMol/L (136-145); Total Protein 7.3 gm/dL (5.7-8.2); eGFR 49 See Note
[2024-09-22 15:26] LABS: Collection Type, Urine Clean Catch; Squamous Epithelial Cell,Urine 0 /hpf (0-5)
[2024-09-22 15:40] LABS: Bilirubin,Urine Negative (Negative); Blood,Urine Negative (Negative); Clarity,Urine Clear (Clear/Hazy); Color,Urine Lt-Yellow (Lt Yel-Yel); Glucose, Urine Negative (Negative); Hyaline Casts,Urine < 1 /hpf (0-1); Ketones,Urine Negative (Negative); Leukocyte Esterase,Urine Negative (Negative); Nitrite,Urine Negative (Negative); Protein,Urine Negative (Neg - Trace); RBC,Urine 1 /hpf (0-3); Specific Gravity,Urine 1.016 (1.001-1.035); Urobilinogen,Urine Negative mg/dL (0.0-1.0); WBC,Urine 1 /hpf (0-5)
[2024-09-22] MEDS: SODIUM CHLORIDE 0.9% 250 ML 250 ML 999 ML IV (15:50)
[2024-09-22 16:00] VITALS: BP 152/75; PULSE 74; RESP 22; TEMP 36.7; O2SAT 96
[2024-09-22 16:03] LABS: Basophils # (Auto) 0.1 Thou/mm3 (0.0-0.2); Basophils % (Auto) 1 % (0-2.5); Eosinophils # (Auto) 0.1 Thou/mm3 (0.0-0.5); Eosinophils % (Auto) 1 % (0-10); Hematocrit 24.3 % (36.0-46.0); Immature Granulocytes % (Auto) 0 % (0-0); Immature Granulocytes Auto 0.02 Thou/mm3 (0.00-0.00); Lymphocytes # (Auto) 0.9 Thou/mm3 (1.0-4.8); Lymphocytes % (Auto) 10 % (10-50); Mean Corpuscular Hemoglobin 21.6 pg (25.0-35.0); Mean Corpuscular Volume 72 fL (80-100); Monocytes # (Auto) 0.9 Thou/mm3 (0.0-0.8); Monocytes % (Auto) 10 % (0-12); Neutrophils # (Auto) 7.3 Thou/mm3 (1.8-7.7); Neutrophils % (Auto) 78 % (37-80); Nucleated Red Blood Cell % 0 /100 WBC (0); Platelet Count 386 Thou/mm3 (140-440); RDW Standard Deviation 44.3 fL (36.4-46.3); Red Blood Count 3.38 Miln/mm3 (4.00-5.20); White Blood Count 9.4 Thou/mm3 (3.6-11.0)
[2024-09-22 16:19] LABS: Hemoglobin 7.3 g/dL (12.0-16.0)
== END 2024-09-22 18:10 | disposition home or self-care (01) ==
PROVIDERS: Student in an Organized Health Care Education/Training Program; Emergency Provider Emergency Medicine; PCP Family Medicine
DX: R41.82 Altered mental status, unspecified (principal); Z91.83 Wandering in diseases classified elsewhere
CPT/HCPCS: 36415; 70450; 71045; 80053; 81001; 85025; 99284; J7050

== ENCOUNTER → 2024-10-04 | Outpatient (CLI) | payer MEDICARE, OTHER, SELFPAY ==
[2024-10-04 12:35] LABS: Collection Type, Urine Clean Catch
[2024-10-04 13:10] LABS: Bilirubin,Urine Negative (Negative); Blood,Urine Negative (Negative); Clarity,Urine Clear (Clear/Hazy); Color,Urine Lt-Yellow (Lt Yel-Yel); Culture Indicated,Urine Not Indicated; Glucose, Urine Negative (Negative); Hyaline Casts,Urine < 1 /hpf (0-1); Ketones,Urine Negative (Negative); Leukocyte Esterase,Urine Negative (Negative); Nitrite,Urine Negative (Negative); PH,Urine 5.5 (5.0-7.0); Protein,Urine Negative (Neg - Trace); RBC,Urine < 1 /hpf (0-3); Specific Gravity,Urine 1.016 (1.001-1.035); Squamous Epithelial Cell,Urine < 1 /hpf (0-5); Urobilinogen,Urine Negative mg/dL (0.0-1.0); WBC,Urine 1 /hpf (0-5)
== END | disposition home or self-care (01) ==
LOC: SLDO 12:25
PROVIDERS: PCP Family Medicine; Referring Provider Family Medicine; Visit Provider Family Medicine
DX: N39.0 Urinary tract infection, site not specified (principal)
CPT/HCPCS: 81001

== ENCOUNTER 2024-12-22 20:02 | Emergency (ER) | payer MEDICARE, OTHER, SELFPAY ==
[2024-12-22 20:04] VITALS: BP 152/72; PULSE 61; RESP 16; RESP 24; TEMP 37.1; O2SAT 95
--- NOTE | 2024-12-22 20:14 | EDNOTE_ITS ---
Upper Respiratory Inf. RME/HPI General Chief Complaint: Flu Like Symptoms Stated Complaint: COUGH Time Seen by Provider: 12/22/24 20:30 Arrival date/time: 12/22/24 20:02 RME / HPI RME / HPI Narrative: This section includes all my notes and documentations, including HPI, PE, and ED course. Matty Church MD HPI: 84 y/o female [facility]E from [facility] presents to ED c/o productive cough x 4 days with dyspnea and fever. With purulent sputum. No other complaints. ROS: All negative except as documented in HPI. Physical Exam: General: Alert. Hacking cough noted. Eyes: Conjunctivae and lids clear. ENT: No nasal congestion. Neck: Supple. Heart: RRR. Lungs: Mild respiratory distress. Moderately decreased air movement with wheezing and rales. Abdomen: Soft and nontender. Normal bowel sounds. No distension. No rebound or guarding. Back: No CVA tenderness. Skin: Warm and dry. Neuro: Alert and oriented X 1. I reviewed EMS and [place] [facility] notes. I reviewed all diagnostic test results. My interpretation of the EKG: NSR (68 bpm) with no ST-T changes. My interpretation of the chest x-ray is infiltrates. Blood tests and urine tests unremarkable. COVID/influenza negative. At this point, diagnoses include Pneumonia. Treatment here included Albuterol/Ipratroprium Duoneb, Methylprednisolone, IV fluid, Vancomycin, and Rocephin. Recommended treatment at the [place] [facility]. Based on my best medical judgment, made decision no further evaluation or treatment indicated at this time. Printed discharge instructions below. Discharge instructions from Dr. Church: --After extensive evaluation, there is no immediately life-threatening condition for such as heart attack. But we have pneumonia. --Levaquin to kill the germs causing the pneumonia. --Prednisone to help decrease the swelling in the airways. -- DuoNeb every 4-6 hours for 3 days to help keep the airways open. Then as needed for cough or shortness of breath. --See a private doctor next week for recheck if not completely better. --Seek immediate medical care with worsening or with any concerns. Matty Church MD Related Data Home Medications ?Medication ?Instructions ?Recorded ?Confirmed amitriptyline 50 mg tablet 150 mg PO HS 06/24/2104/16 cetirizine 10 mg tablet 10 mg PO QDAY 06/24/2104/16 omeprazole 40 mg capsule,delayed 40 mg PO QDAY 1 04/16/24 release zolpidem 10 mg tablet 10 mg PO HS 06/24/21 4 silver sulfadiazine 1 % topical 1 applic topical BID 0 03/29/24 03/29/24 cream Previous Rx's ?Medication ?Instructions ?Recorded aspirin 81 mg tablet,delayed 81 mg PO QDAY 30 days #30 tabs 03/29/24 release prednisone 10 mg tablet See Taper PO QDAY rash #10 t abs 04/18/24 cefdinir 300 mg capsule 300 mg PO BID #14 caps 07/20 levofloxacin 500 mg tablet 500 mg PO QDAY 10 days #10 tabs 12/22/24 prednisone 20 mg tablet 20 mg PO BID 3 days #6 tabs 12/22/24 Allergies Allergy/AdvReac Type Severity Reaction Status Date / Time clindamycin Allergy Intermediate Rash Verified 04/17/24 14:59 Penicillins Allergy Intermediate Rash Verified 03/28/24 15:33 Review of Systems Review of Systems Systems Reviewed: All systems reviewed, normal except as documented Past Medical History Past Medical History NEUROLOGIC: Positive Dementia GASTROINTESTINAL: Positive Gastrointestinal Disorders and Gastroesophageal Reflux Disease MUSCULOSKELETAL: Positive Arthritis ENT: Positive Cataracts PSYCHO/SOCIAL: Positive Depression OTHER HISTORY: Positive Blood Transfusions, Blood Transfusion Reaction, Anesthesia Reactions and Chicken Pox Surgical History SURGICAL: Positive Cardiac Surgery, Carotid Endarterectomy, Oral Surgery and Tonsillectomy Social History SMOKING STATUS: Former smoker ED Exam Narrative Physical exam: Refer to HPI above Course Course Course Narrative: CXR is ordered for determining the etiology of shortness of breath. Quality Measures none Orders Category Date Time Status Bedside COVID-19 Antigen Test NOW Care 12/22/24 20:18 Active Bedside Influenza A&B Antigen Test NOW Care 12/22/24 20:18 Completed EKG (ED ONLY) *Do not use* NOW Care 12/22/24 20:19 Completed Saline [Insert IV] NOW Care 12/22/24 20:18 Active Straight [In and Out Catheter] X1 Care 12/22/24 20:18 Active EKG (ED Only) Stat Exams 12/22/24 20:19 Draft XR chest 1V portable Stat Exams 12/22/24 20:19 Completed BNP [B-Type Natriuretic Peptide] Stat Lab 12/22/24 20:50 Completed Bilirubin,Direct Stat Lab 12/22/24 20:50 Completed Blood Culture (Lab) Stat Lab 12/22/24 20:20 Ordered CBC Stat Lab 12/22/24 20:50 Completed CMP [Comprehensive Metabolic Panel] Stat Lab 12/22/24 20:50 Completed CRP [C-Reactive Protein] Stat Lab 12/22/24 20:50 Completed ESR [Sed Rate (ESR)] Stat Lab 12/22/24 20:50 Completed Free T4 (Free Thyroxine) Stat Lab 12/22/24 20:50 Completed Lactate (Lactic Acid) Stat Lab 12/22/24 20:50 Completed Magnesium Stat Lab 12/22/24 20:50 Completed Procalcitonin Stat Lab 12/22/24 20:50 Completed TSH [Thyroid Stimulating Hormone] Stat Lab 12/22/24 20:50 Completed Troponin I Stat Lab 12/22/24 20:50 Completed UA, C/S IF [Urinalysis, C/S if Indicated] Stat Lab 12/22/24 22:12 Completed VBG [Venous Blood Gas] Stat Lab 12/22/24 20:50 Completed Albuterol/Ipratr Rt Deirdre [Duoneb Rt Deirdre] Med 12/22/24 20:18 Discontinued 3 ml INH X1 ONE MethylPREDNISolone.* [SoluMEDROL Inj] Med 12/22/24 20:18 Discontinued 125 mg IVP X1 ONE Sodium Chloride 0.9% 250 ml [Ns] 250 ml Med 12/22/24 22:31 Discontinued IV 500 mls/hr Vancomycin Inj 1,000 mg Med 12/22/24 22:30 Active Sodium Chloride 0.9% 500 ml [Ns] 500 ml IV X1 cefTRIAXone/D5w 1gm IV premix [Rocephin/D5w 1gm IV Med 12/22/24 22:30 Discontinued premix] 1 g in 50 ml IV X1 Vital Signs Vital signs: Vital Signs Temperature 98.7 F 12/22/24 20:04 Pulse Rate 61 12/22/24 20:04 Respiratory Rate 16 12/22/24 20:04 Blood Pressure 152/72 H 12/22/24 20:04 Pulse Oximetry (%) 95 12/22/24 20:04 Oxygen Delivery Method Room Air 12/22/24 20:04 Upper Respiratory Infection MDM Narrative MDM Narrative:: Scribe Attestation: I, Carlita Reyes, am scribing for and in the presence of Dr. Church. Provider Notation: Although this document has been carefully reviewed, there may still be some phonetic and other typographical errors.? These errors are purely grammatical due to imperfections in the software program and should not be construed in any way to? compromise the substance of the patient's medical care during this visit. 84 y/o female BIBA from [facility] presents to ED c/o productive cough x 4 days, and respirations of 36 and fever x 1 day. Patient has been coughing up sputum and phlegm. No other complaints. Patient data External records reviewed:: [facility] previous records (Reviewed prior ED records from 08/30/24. Patient was seen for Chronic leg pain.), EMS form and [facility] records Clinical information provided by:: EMS Social determinants that could affect healthcare access:: housing (SNF) Patient has the following chronic illnesses:: Dementia, Gastroesophageal Reflux Disease, Arthritis, Cataracts, Depression How is presenting disease/condition affected by chronic disease/condition?: uneffected by Evaluation data The following diagnostics were reviewed and interpreted by me:: EKG tracing(s) (My interpretation of the EKG: NSR (68 bpm) with no ST-T changes. Matty Church MD) Lab and/or radiology exams considered but not ordered:: None Interpretation Summary: I reviewed all diagnostic test results. My interpretation of the EKG: NSR (68 bpm) with no ST-T changes. My interpretation of the chest x-ray is infiltrates. Blood tests and urine tests unremarkable. COVID/influenza negative. Medications / Prescriptions Medications or Prescriptions considered but not ordered:: None Medication administrations:: Medication Administration History Vancomycin HCl 1,000 mg/ (Sodium Chloride) 500 mls @ 150 mls/hr IV X1 ONE Stop: 12/23/24 01:49 Discontinued Medications Albuterol/Ipratropium (Albuterol/Ipratropium (Duoneb) Rt Deirdre 3 Ml Nebu) 3 ml INH X1 ONE Stop: 12/22/24 20:19 Last Admin: 12/22/24 20:46 Dose: 3 ml Documented By: DM Ceftriaxone Sodium/Dextrose (Rocephin/D5w 1gm Iv Premix) 1 g in 50 mls @ 100 mls/hr IV X1 ONE Stop: 12/22/24 22:59 Sodium Chloride (Ns) 250 mls @ 500 mls/hr IV .Q30M ONE Stop: 12/22/24 23:00 Methylprednisolone Sodium Succinate (Methylprednisolone Sod Succ 62.5 Mg/Ml 2ml Vial) 125 mg IVP X1 ONE Stop: 12/22/24 20:19 Last Admin: 12/22/24 21:19 Dose: 125 mg Documented By: CVL Albuterol/Ipratroprium Duoneb, Methylprednisolone, Rocephin, IV fluid, Vancomycin, and Rocephin. Consultations Consultation(s) initiated? (list below): No Diagnosis Upper Respiratory Differential Diagnosis: upper respiratory infection, croup, otitis media, sinusitis, viral infection, bronchitis, influenza, pharyngitis and other (Pneumonia) Most likely diagnosis given after review of the tests above:: Pneumonia Admission Indicated Admission indicated?: not indicated Explain why admission is indicated or not indicated:: Recommended treatment at the [place] [facility]. Admission Request Was there a request for admission?: No Disposition Plan Disposition Plan: Discharge (Back to [facility]) Discharge Attestation Discharge Attestation: The patient and all family members were given an opportunity to ask questions and understood the discharge instructions. Discharge instructions specifically effects, indications for sooner follow up or return to the emergency department, and the expected course of current diagnosis. Patient condition: Stable Discharge Plan Plan Patient Disposition: Xfer [facility] (SNF) Prescriptions/Referrals Prescriptions/Med Rec: New prednisone 20 mg tablet 20 mg PO BID 3 Days Qty: 6 0RF Taper: Prednisone Taper 20 mg DAILY for 2 Days and 0 Hour 10 mg DAILY for 2 Days and 0 Hour 5 mg DAILY for 7 Days and 0 Hour levofloxacin 500 mg tablet 500 mg PO QDAY 10 Days Qty: 10 0RF No Action omeprazole 40 mg capsule,delayed release(DR/EC) 40 mg PO QDAY Patient Comments: TAKE ONE CAPSULE BY MOUTH EVERY DAY FOR GASTRITIS AND HEARTBURN cetirizine 10 mg tablet 10 mg PO QDAY Patient Comments: TAKE ONE TABLET BY MOUTH EVERY DAY FOR ALLERGY amitriptyline 50 mg tablet 150 mg PO HS Patient Comments: TAKE THREE TABLET BY MOUTH EVERY DAY AT BED TIME zolpidem 10 mg tablet 10 mg PO HS Patient Comments: TAKE ONE TABLET BY MOUTH EVERY DAY AT BED TIME prednisone 10 mg tablet See Taper PO QDAY Qty: 10 0RF Taper: Prednisone Taper 20 mg DAILY for 2 Days and 0 Hour 10 mg DAILY for 2 Days and 0 Hour 5 mg DAILY for 7 Days and 0 Hour silver sulfadiazine 1 % cream 1 applic TOPICAL BID Patient Comments: APPLY TO THE AFFECTED AREA(S) TRANSDERMALLY TWICE DAILY FOR BURN aspirin 81 mg Tablet,Delayed Release (Dr/Ec) 81 mg PO QDAY 30 Days Qty: 30 3RF cefdinir 300 mg capsule 300 mg PO BID Qty: 14 0RF Referrals: No Primary/Family,Physician [Primary Care Provider] - In 1 week Problem List Clinical Impression: Pneumonia Patient/Caregiver Discharge Instructions Discharge Activity: activity as tolerated Education Materials: ED Pneumonia (Adult) Additional Instructions: Discharge instructions from Dr. Church: --After extensive evaluation, there is no immediately life-threatening condition for such as heart attack. But we have pneumonia. --Levaquin to kill the germs causing the pneumonia. --Prednisone to help decrease the swelling in the airways. -- DuoNeb every 4-6 hours for 3 days to help keep the airways open. Then as needed for cough or shortness of breath. --See a private doctor next week for recheck if not completely better. --Seek immediate medical care with worsening or with any concerns. Print Language: Citizen Of [place] Stand Alone Forms: [employer]wona Award Info., Patient Portal Info Letter
--- NOTE | 2024-12-22 20:19 | XR_ITS ---
Examination: AP chest single view TECHNIQUE: Upright AP portable chest single view Date and time: 03/24/2025 2103 hours Comparison September 22, 2024 INDICATIONS: Coughing several days FINDINGS: Subtle opacity in both lungs Normal heart size Prominent osteopenia Reverse right shoulder arthroplasty IMPRESSION: Findings most consistent with mild diffuse bilateral pneumonia
--- NOTE | 2024-12-22 20:19 | EKG_ITS ---
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
[2024-12-22 20:39] VITALS: PULSE 64; RESP 20; O2SAT 99
[2024-12-22] MEDS: ALBUTEROL/IPRATROPIUM (Duoneb) RT SOL 3 ML NEBU INH (20:46)
[2024-12-22 21:17] LABS: Base Excess, Venous 2 (-3-3); Lactate (Lactic Acid) 1.5 mMol/L (0.4-2.0); O2 Saturation, Venous 94 % (96-97); PCO2, Venous 31 mmHg (36-56); PO2, Venous 68 mmHg (15-58); pH, Venous 7.51 (7.33-7.66)
[2024-12-22] MEDS: MethylPREDNISolone SOD SUCC 62.5 MG/ML 2ML VIAL 125 MG IVP (21:19)
[2024-12-22 21:28] LABS: Basophils % (Auto) 0 % (0-2.5); Eosinophils % (Auto) 0 % (0-10); Hematocrit 30.1 % (36.0-46.0); Hemoglobin 9.8 g/dL (12.0-16.0); Immature Granulocytes % (Auto) 1 % (0-0); Immature Granulocytes Auto 0.04 Thou/mm3 (0.00-0.00); Lymphocytes # (Auto) 0.6 Thou/mm3 (1.0-4.8); Lymphocytes % (Auto) 11 % (10-50); Mean Corpuscular HGB Conc 32.6 g/dl (31.0-37.0); Mean Corpuscular Hemoglobin 23.2 pg (25.0-35.0); Mean Corpuscular Volume 71 fL (80-100); Monocytes # (Auto) 0.2 Thou/mm3 (0.0-0.8); Monocytes % (Auto) 4 % (0-12); Neutrophils # (Auto) 4.9 Thou/mm3 (1.8-7.7); Neutrophils % (Auto) 84 % (37-80); Nucleated Red Blood Cell % 0 /100 WBC (0); RDW Standard Deviation 63.2 fL (36.4-46.3); Red Blood Count 4.22 Miln/mm3 (4.00-5.20); White Blood Count 5.8 Thou/mm3 (3.6-11.0)
[2024-12-22 21:39] LABS: Platelet Count 68 Thou/mm3 (140-440); Sed Rate (ESR) 32 mm/hr (0-30)
[2024-12-22 21:45] LABS: B-Type Natriuretic Peptide 231 pg/mL (0-100)
[2024-12-22 21:51] LABS: Alanine Aminotransferase 18 U/L (10-49); Albumin, Serum 3.5 gm/dL (3.4-4.8); Albumin/Globulin Ratio 1.6 (1.2-2.2); Alkaline Phosphatase 72 U/L (46-116); Anion Gap 8 (7-16); Aspartate Amino Transferase 20 U/L (0-34); BUN/Creatinine Ratio 29 Ratio (12-20); Bilirubin,Direct < 0.1 mg/dL (0.0-0.3); Bilirubin,Total 0.2 mg/dL (0.3-1.2); Blood Urea Nitrogen 29 mg/dL (9-23); C-Reactive Protein 2.4 mg/dL (0.0-0.9); Calcium 8.2 mg/dL (8.3-10.6); Calcium (Corrected) 8.6 mg/dL (8.5-10.1); Carbon Dioxide 25.8 mMol/L (20.0-31.0); Chloride 106 mMol/L (98-107); Free T4 (Free Thyroxine) 1.12 ng/dL (0.89-1.76); Globulin 2.2 gm/dL (2.3-3.5); Glucose 108 mg/dL (74-106); Magnesium 1.9 mg/dL (1.6-2.6); Osmolality,Calculated 286 (275-295); Potassium 5.2 mMol/L (3.4-5.1); Slide Review Platelets confirmed; Sodium 140 mMol/L (136-145); Thyroid Stimulating Hormone 0.54 uIU/mL (0.55-4.78); Total Protein 5.7 gm/dL (5.7-8.2); Troponin I 0.022 ng/mL (0.0-0.045); eGFR 55 See Note
[2024-12-22 21:54] LABS: Procalcitonin 0.06 ng/ml (0.0-0.49)
[2024-12-22 22:25] LABS: Collection Type, Urine Clean Catch
[2024-12-22 22:33] LABS: Bilirubin,Urine Negative (Negative); Blood,Urine Negative (Negative); Clarity,Urine Clear (Clear/Hazy); Color,Urine Lt-Yellow (Lt Yel-Yel); Culture Indicated,Urine Not Indicated; Glucose, Urine Negative (Negative); Hyaline Casts,Urine < 1 /hpf (0-1); Ketones,Urine Negative (Negative); Leukocyte Esterase,Urine Negative (Negative); Nitrite,Urine Negative (Negative); PH,Urine 6.5 (5.0-7.0); Protein,Urine Negative (Neg - Trace); RBC,Urine 1 /hpf (0-3); Specific Gravity,Urine 1.019 (1.001-1.035); Squamous Epithelial Cell,Urine < 1 /hpf (0-5); Urobilinogen,Urine Negative mg/dL (0.0-1.0); WBC,Urine < 1 /hpf (0-5)
[2024-12-22] MEDS: SODIUM CHLORIDE 0.9% 250 ML 250 ML 500 ML IV (23:51)
[2024-12-22] MEDS: Vancomycin Inj 1,000 MG in SODIUM CHLORIDE 0.9% 500 ML 500 ML 150 MG IV (23:51)
[2024-12-23] MEDS: cefTRIAXone/D5w 1gm IV premix 1 G/50 ML BAG IV (01:40)
[2024-12-23 02:00] VITALS: BP 160/74; PULSE 67; RESP 18; O2SAT 95
== END 2024-12-23 02:40 | disposition skilled nursing facility (03) ==
PROVIDERS: Emergency Provider Emergency Medicine
DX: J18.9 Pneumonia, unspecified organism (principal)
CPT/HCPCS: 51701; 36415; 71045; 80053; 81001; 82248; 82803; 83605; 83735; 83880; 84145; 84439; 84443; 84484; 85025; 85652; 86140; 87040; 87400; 87811; 93005; 94640; 96365; 96366; 96367; 99284; A9270; J0696; J2919; J3370; J7040; J7050

== ENCOUNTER 2025-01-05 11:44 | Inpatient (IN) | payer MEDICARE, OTHER, SELFPAY ==
[2025-01-05] VITALS (10 sets, daily range): BP systolic 62–159; BP diastolic 44–89; PULSE 60–116; RESP 18–27; TEMP 36.4–38.8; O2SAT 84–100; BMI 19.3; BMI 19.0
--- NOTE | 2025-01-05 12:04 | PC.NURSE ---
PT BROUGHT IN BY AMBULANCE FROM [facility]. PER STAFF, PT WITH LABORED BREATHING WHILE BEING TURNED THIS AM AND PMD WANTED HER SENT TO THE E.D. PT ORIENTED TO SELF ONLY WITH HX DEMENTIA. PT PLEASANT AND COOPERATIVE THEN WILL START YELLING AT STAFF. PT TALKING ABOUT YOU WORK FOR THE [employer], AND UNABLE TO REORIENT PT AFTER MULTIPLE ATTEMPTS TELLING HER SHE IS IN THE HOSPITAL. DR. ZHAO IN ROOM TO SEE PT.
--- NOTE | 2025-01-05 12:25 | EKG_ITS ---
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
--- NOTE | 2025-01-05 12:25 | XR_ITS ---
Examination single view. Technique: AP upright portable chest single view. Date time: 09/07/2024, 1321 hrs. Comparison: 04/24/2025 Indications: Chest pain today. Findings: Mild prominence left ventricle. Pneumonia right upper lobe and left mid lung Moderate osteopenia Impression: Bilateral pneumonia.
--- NOTE | 2025-01-05 12:30 | PC.NURSE ---
PT YELLING AT NURSE IV BEING STARTED
[2025-01-05] MEDS: LORazepam 0.5 MG TABLET PO (12:42)
--- NOTE | 2025-01-05 12:48 | PD.EDSOB ---
ED SOB =RME/HPI General Chief Complaint: Shortness of Breath/Dyspnea Stated Complaint: LABORED BREATHING AT SNF Time Seen by Provider: 01/05/25 11:57 Arrival date/time: 01/05/25 11:44 Limitations: no limitations RME / HPI RME / HPI Narrative: DR. ZHAO MAIN ED EVALUATION: Patient has advanced dementia and history and review of systems is limited secondary to that. She usually uses 2 L of oxygen per minute by nasal cannula. Was found to be hypoxic and had increased work of breathing by [facility] staff, therefore they called EMS. When they arrived to the scene, patient was in the mid 80s on 2 L, she was placed on a nonrebreather mask and brought to the emergency department. Patient is a full code. Here in the emergency department, patient was repositioned and took off oxygen, was saturating 100% without supplemental oxygen on room air. She has no respiratory distress or increased work of breathing. Related Data Home Medications ?Medication ?Instructions ?Recorded ?Confirmed amitriptyline 50 mg tablet 150 mg PO HS 06/24/21 04/16/24 cetirizine 10 mg tablet 10 mg PO QDAY 06/24/21 04/16/24 omeprazole 40 mg capsule,delayed 40 mg PO QDAY 06/24/21 04/16/24 release zolpidem 10 mg tablet 10 mg PO HS 06/24/21 04/16/24 silver sulfadiazine 1 % topical 1 applic topical BID 03/29/24 03/29/24 cream Previous Rx's ?Medication ?Instructions ?Recorded aspirin 81 mg tablet,delayed 81 mg PO QDAY 30 days #30 tabs 03/29/24 release prednisone 10 mg tablet See Taper PO QDAY rash #10 tabs 04/18/24 cefdinir 300 mg capsule 300 mg PO BID #14 caps 07/20/24 Allergies Allergy/AdvReac Type Severity Reaction Status Date / Time clindamycin Allergy Intermediate Rash Verified 01/05/25 12:21 Penicillins Allergy Intermediate Rash Verified 01/05/25 12:21 Review of Systems Review of Systems Systems Reviewed: All systems reviewed, normal except as documented Past Medical History Past Medical History NEUROLOGIC: Positive Dementia CARDIAC: Positive Congestive Heart Failure RESPIRATORY: Positive Chronic Obstructive Pulmonary Disease (COPD) GASTROINTESTINAL: Positive Gastrointestinal Disorders and Gastroesophageal Reflux Disease MUSCULOSKELETAL: Positive Musculoskeletal Disorders and Arthritis ENT: Positive Cataracts PSYCHO/SOCIAL: Positive Depression OTHER HISTORY: Positive Blood Transfusions, Blood Transfusion Reaction, Anesthesia Reactions and Chicken Pox Surgical History SURGICAL: Positive Cardiac Surgery, Carotid Endarterectomy, Oral Surgery and Tonsillectomy Social History SMOKING STATUS: Former smoker SUBSTANCE USE: does not use ED Exam General Limitations: Present no limitations General appearance: Present alert and in no apparent distress Head Head exam: Present atraumatic Eye Eye exam: Present normal appearance, PERRL and EOMI ENT ENT exam: Present normal exam, normal oropharynx and mucous membranes moist Neck Neck exam: Present normal inspection, full ROM and trachea midline Chest Chest inspection: Present normal inspection and symmetric chest wall rise Respiratory Respiratory exam: Present normal lung sounds bilaterally Cardiovascular Cardiovascular exam: Present regular rate, normal rhythm and normal heart sounds Abdominal Exam Abdominal exam: Present soft and normal bowel sounds Extremities Exam Extremities exam: Present normal inspection and full ROM Back Exam Back exam: Present normal inspection and full ROM Neurological Exam Neurological exam: Present alert, oriented X3 and CN II-XII intact Psychiatric Psychiatric exam: Present normal affect and normal mood Skin Skin exam: Present warm, dry, intact and normal color Course Quality Measures none Orders Category Date Time Status Manager Advanced STAT Care 01/05/25 12:25 Active Continuous Pulse Oximetry ONCE Care 01/05/25 12:25 Active EKG (ED ONLY) *Do not use* NOW Care 01/05/25 12:25 Completed Insert IV STAT Care 01/05/25 12:25 Active EKG (ED Only) Stat Exams 01/05/25 12:25 Draft XR chest 1V portable Stat Exams 01/05/25 12:25 Ordered CBC Stat Lab 01/05/25 12:58 Received Comprehensive Metabolic Panel Stat Lab 01/05/25 12:58 Received Troponin I Stat Lab 01/05/25 12:58 Received LORazepam [Ativan] Med 01/05/25 12:25 Discontinued 0.5 mg PO X1 ONE Oxygen Delivery NOW RT 01/05/25 12:25 Active Vital Signs Vital signs: Vital Signs Temperature 97.5 F 01/05/25 11:52 Pulse Rate 116 H 01/05/25 11:52 Respiratory Rate 18 01/05/25 11:52 Blood Pressure 90/54 L 01/05/25 11:52 Pulse Oximetry (%) 100 01/05/25 11:52 Oxygen Delivery Method Oxy Mask 01/05/25 11:52 Oxygen Flow Rate 10 01/05/25 11:52 Shortness of Breath / Dyspnea Medications / Prescriptions Medication administrations:: Medication Administration History Discontinued Medications Lorazepam (Lorazepam 0.5 Mg Tablet) 0.5 mg PO X1 ONE Stop: 01/05/25 12:26 Last Admin: 01/05/25 12:42 Dose: 0.5 mg Documented By: DOROTA Discharge Plan Prescriptions/Referrals Prescriptions/Med Rec: No Action omeprazole 40 mg capsule,delayed release(DR/EC) 40 mg PO QDAY Patient Comments: TAKE ONE CAPSULE BY MOUTH EVERY DAY FOR GASTRITIS AND HEARTBURN cetirizine 10 mg tablet 10 mg PO QDAY Patient Comments: TAKE ONE TABLET BY MOUTH EVERY DAY FOR ALLERGY amitriptyline 50 mg tablet 150 mg PO HS Patient Comments: TAKE THREE TABLET BY MOUTH EVERY DAY AT BED TIME zolpidem 10 mg tablet 10 mg PO HS Patient Comments: TAKE ONE TABLET BY MOUTH EVERY DAY AT BED TIME prednisone 10 mg tablet See Taper PO QDAY Qty: 10 0RF Taper: Prednisone Taper 20 mg DAILY for 2 Days and 0 Hour 10 mg DAILY for 2 Days and 0 Hour 5 mg DAILY for 7 Days and 0 Hour silver sulfadiazine 1 % cream 1 applic TOPICAL BID Patient Comments: APPLY TO THE AFFECTED AREA(S) TRANSDERMALLY TWICE DAILY FOR BURN aspirin 81 mg Tablet,Delayed Release (Dr/Ec) 81 mg PO QDAY 30 Days Qty: 30 3RF cefdinir 300 mg capsule 300 mg PO BID Qty: 14 0RF Referrals: No Primary/Family,Physician [Primary Care Provider] - In 1 week Patient/Caregiver Discharge Instructions Print Language: Maltese
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
[2025-01-05 13:22] LABS: Basophils # (Auto) 0.1 Thou/mm3 (0.0-0.2); Basophils % (Auto) 1 % (0-2.5); Eosinophils # (Auto) 0.1 Thou/mm3 (0.0-0.5); Eosinophils % (Auto) 1 % (0-10); Hematocrit 30.6 % (36.0-46.0); Hemoglobin 9.7 g/dL (12.0-16.0); Immature Granulocytes % (Auto) 1 % (0-0); Immature Granulocytes Auto 0.15 Thou/mm3 (0.00-0.00); Lymphocytes # (Auto) 0.9 Thou/mm3 (1.0-4.8); Lymphocytes % (Auto) 7 % (10-50); Mean Corpuscular HGB Conc 31.7 g/dl (31.0-37.0); Mean Corpuscular Hemoglobin 23.1 pg (25.0-35.0); Mean Corpuscular Volume 73 fL (80-100); Monocytes % (Auto) 8 % (0-12); Neutrophils # (Auto) 10.5 Thou/mm3 (1.8-7.7); Neutrophils % (Auto) 83 % (37-80); Nucleated Red Blood Cell % 0 /100 WBC (0); Platelet Count 529 Thou/mm3 (140-440); RDW Standard Deviation 59.3 fL (36.4-46.3); White Blood Count 12.7 Thou/mm3 (3.6-11.0)
--- NOTE | 2025-01-05 13:23 | EDNOTE_ITS ---
ED General RME/HPI General Chief complaint: Shortness of Breath/Dyspnea Stated complaint: LABORED BREATHING AT SNF Time Seen by Provider: 01/05/25 11:57 Arrival date/time: 01/05/25 11:44 Limitations: no limitations RME / HPI RME / HPI narrative: DR. MARINO MAIN ED EVALUATION: Patient has advanced dementia and history and review of systems is limited secondary to that. She usually uses 2 L of oxygen per minute by nasal cannula. Was found to be hypoxic and had increased work of breathing by correction staff, therefore they called EMS. When they arrived to the scene, patient was in the mid 80s on 2 L, she was placed on a nonrebreather mask and brought to the emergency department. Patient is a full code. Here in the emergency department, patient was repositioned and took off oxygen, was saturating 100% without supplemental oxygen on room air. She has no respiratory distress or increased work of breathing. Related Data Home Medications ?Medication ?Instructions ?Recorded ?Confirmed amitriptyline 50 mg tablet 150 mg PO HS 06/24/2104/16 cetirizine 10 mg tablet 10 mg PO QDAY 06/24/2104/16 omeprazole 40 mg capsule,delayed 40 mg PO QDAY 1 04/16/24 release zolpidem 10 mg tablet 10 mg PO HS 06/24/21 4 silver sulfadiazine 1 % topical 1 applic topical BID 0 03/29/24 03/29/24 cream Previous Rx's ?Medication ?Instructions ?Recorded aspirin 81 mg tablet,delayed 81 mg PO QDAY 30 days #30 tabs 03/29/24 release prednisone 10 mg tablet See Taper PO QDAY rash #10 t abs 04/18/24 cefdinir 300 mg capsule 300 mg PO BID #14 caps 07/20 Allergies Allergy/AdvReac Type Severity Reaction Status Date / Time clindamycin Allergy Intermediate Rash Verified 01/05/25 12:21 Penicillins Allergy Intermediate Rash Verified 01/05/25 12:21 Review of Systems Review of Systems ROS Unobtainable: unobtainable due to medical condition (advanced dementia) Past Medical History Past Medical History NEUROLOGIC: Positive Dementia GASTROINTESTINAL: Positive Gastrointestinal Disorders and Gastroesophageal Reflux Disease MUSCULOSKELETAL: Positive Arthritis ENT: Positive Cataracts PSYCHO/SOCIAL: Positive Depression OTHER HISTORY: Positive Blood Transfusions, Blood Transfusion Reaction, Anesthesia Reactions and Chicken Pox Surgical History SURGICAL: Positive Cardiac Surgery, Carotid Endarterectomy, Oral Surgery and Tonsillectomy Social History SMOKING STATUS: Former smoker ALCOHOL: Never ED Exam General Limitations: Present no limitations General appearance: Present alert and in no apparent distress Head Head exam: Present atraumatic, normocephalic and normal inspection Eye Eye exam: Present normal appearance, PERRL and EOMI ENT ENT exam: Present normal exam, normal oropharynx and mucous membranes moist Neck Neck exam: Present normal inspection, full ROM and trachea midline Chest Chest inspection: Present normal inspection and symmetric chest wall rise Respiratory Respiratory exam: Present normal lung sounds bilaterally Cardiovascular Cardiovascular exam: Present regular rate, normal rhythm and normal heart sounds Abdominal Exam Abdominal exam: Present soft and normal bowel sounds Extremities Exam Extremities exam: Present normal inspection Back Exam Back exam: Present normal inspection Neurological Exam Neurological exam: Present alert (t baseline) and CN II-XII intact Psychiatric Psychiatric exam: Present normal affect and normal mood Skin Skin exam: Present warm, dry, intact and normal color Course Course Course Narrative: 1358: Sepsis alert initiated. Orders made at this time are congruent with ED Adult Sepsis Order List. Re-evaluation is to be completed. 1412: Fluids started. 1442: Sepsis reassessment performed consisting of lab review, vitals, physical exam including auscultation of heart, lungs, and visual evaluation of capillary refills, mucosal membranes and extremities. Quality Measures Current suspected stage: sepsis Possible source: pulmonary Blood cultures ordered: yes Antibiotic ordered: Yes Pertinent labs: 01/05/25 01/05/25 12:58 14:22 Lactic Acid 3.7 H mMol/L (0.4-2.0) Procalcitonin 0.10 ng/ml (0.0-0.49) sepsis Orders Category Date Time Status Geothermal Technician STAT Care 01/05/25 12:25 Active Continuous Pulse Oximetry ONCE Care 01/05/25 12:25 Active EKG (ED ONLY) *Do not use* NOW Care 01/05/25 12:25 Completed In and Out Catheter [id number] Care 01/05/25 14:03 Active Insert IV NOW Care 01/05/25 14:03 Active Insert IV STAT Care 01/05/25 12:25 Active NPO STAT Care 01/05/25 14:03 Active Strict Intake and Output Routine Care 01/05/25 14:03 Ordered EKG (ED Only) Stat Exams 01/05/25 12:25 Draft XR chest 1V portable Stat Exams 01/05/25 12:25 Completed Blood Culture (Lab) Stat Lab 01/05/25 12:58 Received CBC Stat Lab 01/05/25 12:58 Completed Comprehensive Metabolic Panel Stat Lab 01/05/25 12:58 Completed Lactate (Lactic Acid) Stat Lab 01/05/25 14:22 Completed Lactic Acid, 3 HR Stat Lab 01/05/25 17:28 Ordered Lipase Stat Lab 01/05/25 12:58 Completed Magnesium Stat Lab 01/05/25 12:58 Completed Phosphorous Stat Lab 01/05/25 12:58 Completed Procalcitonin Stat Lab 01/05/25 12:58 Completed Prothrombin Time with INR Stat Lab 01/05/25 12:58 Completed Troponin I Stat Lab 01/05/25 12:58 Completed Troponin I Stat Lab 01/05/25 12:58 Completed Urinalysis Stat Lab 01/05/25 14:03 Ordered Urine Culture Stat Lab 01/05/25 14:03 Ordered Azithromycin Po [Zithromax PO] Med 01/05/25 17:33 Discontinued 500 mg PO X1 ONE LORazepam [Ativan] Med 01/05/25 12:25 Discontinued 0.5 mg PO X1 ONE Sodium Chloride 0.9% 1000 ml [Ns] 1,000 ml Med 01/05/25 14:05 Discontinued IV 999 mls/hr cefTRIAXone/D5w 1gm IV premix [Rocephin/D5w 1gm IV Med 01/05/25 17:33 Active premix] 1 gm in 50 ml IV X1 Oxygen Delivery NOW RT 01/05/25 12:25 Active Oxygen Delivery NOW RT 01/05/25 14:03 Active Vital Signs Vital signs: Vital Signs Temperature 97.5 F 01/05/25 11:52 Pulse Rate 116 H 01/05/25 11:52 Respiratory Rate 18 01/05/25 11:52 Blood Pressure 90/54 L 01/05/25 11:52 Pulse Oximetry (%) 100 01/05/25 11:52 Oxygen Delivery Method Oxy Mask 01/05/25 11:52 Oxygen Flow Rate 10 01/05/25 11:52 Critical Care Time Critical Care Time Critical Care Time: Yes Total Critical Care Time (min.): 45 Attestation: The high probability of sudden, clinically significant deterioration in the patient?s condition required the highest level of my preparedness to intervene urgently. The services I provided to this patient were to treat and/or prevent clinically significant deterioration. Services included the following: chart data review, reviewing nursing notes and/or old charts, documentation time, sales and service consultant collaboration regarding findings and treatment options, medication orders and management, direct patient care, vital sign assessments and ordering, interpreting and reviewing diagnostic studies and lab tests. Aggregate critical care time includes only time during which I was engaged in work directly related to the patient?s care, as described above, whether at bedside or elsewhere in the Emergency Department. It did not include time spent performing other reported procedures or the services of residents, students, nurses or physician assistants. Discharge Plan Prescriptions/Referrals Prescriptions/Med Rec: No Action omeprazole 40 mg capsule,delayed release(DR/EC) 40 mg PO QDAY Patient Comments: TAKE ONE CAPSULE BY MOUTH EVERY DAY FOR GASTRITIS AND HEARTBURN cetirizine 10 mg tablet 10 mg PO QDAY Patient Comments: TAKE ONE TABLET BY MOUTH EVERY DAY FOR ALLERGY amitriptyline 50 mg tablet 150 mg PO HS Patient Comments: TAKE THREE TABLET BY MOUTH EVERY DAY AT BED TIME zolpidem 10 mg tablet 10 mg PO HS Patient Comments: TAKE ONE TABLET BY MOUTH EVERY DAY AT BED TIME prednisone 10 mg tablet See Taper PO QDAY Qty: 10 0RF Taper: Prednisone Taper 20 mg DAILY for 2 Days and 0 Hour 10 mg DAILY for 2 Days and 0 Hour 5 mg DAILY for 7 Days and 0 Hour silver sulfadiazine 1 % cream 1 applic TOPICAL BID Patient Comments: APPLY TO THE AFFECTED AREA(S) TRANSDERMALLY TWICE DAILY FOR BURN aspirin 81 mg Tablet,Delayed Release (Dr/Ec) 81 mg PO QDAY 30 Days Qty: 30 3RF cefdinir 300 mg capsule 300 mg PO BID Qty: 14 0RF Referrals: No Primary/Family,Physician [Primary Care Provider] - In 1 week Patient/Caregiver Discharge Instructions Print Language: Grenadian MDM Clinical Information Provided by patient Medical Records Reviewed [facility] Meds/Rx Considered, not Ordered None Labs/Rad/Tests considered, not Ordered None Chronic Illness/Social Conditions Add or document further as needed: advanced dementia EKG EKG Interpretation narrative: My interpretation: EKG performed at 1230 hours, sinus tachycardia, rate 100, no specific ST-T wave changes Imaging Radiology reports / interpretation(s): Procedure(s): XR chest 1V portable Accession Number(s): [id number] cc: Obey Marino MD; Nish Meneses MD; NO PRIMARY/FAMILY,PHYSICIAN~ Examination single view. Technique: AP upright portable chest single view. Date time: 09/07/2024, 1321 hrs. Comparison: 04/24/2025 Indications: Chest pain today. Findings: Mild prominence left ventricle. Pneumonia right upper lobe and left mid lung Moderate osteopenia Impression: Bilateral pneumonia. Dictated By: Nish Meneses MD Medication Administration(s) Medication Administration History Ceftriaxone Sodium/Dextrose (Rocephin/D5w 1gm Iv Premix) 1 gm in 50 mls @ 100 mls/hr IV X1 ONE Stop: 01/05/25 18:02 Discontinued Medications Azithromycin (Azithromycin 250 Mg Tablet) 500 mg PO X1 ONE Stop: 01/05/25 17:34 Sodium Chloride (Ns) 1,000 mls @ 999 mls/hr IV .Q1H1M ONE Stop: 01/05/25 15:05 Last Admin: 01/05/25 14:12 Dose: 999 mls/hr Documented By: DOROTA Lorazepam (Lorazepam 0.5 Mg Tablet) 0.5 mg PO X1 ONE Stop: 01/05/25 12:26 Last Admin: 01/05/25 12:42 Dose: 0.5 mg Documented By: DOROTA Consultations/Discussions re: Management Consult #1: Date/time: 01/05/25 5:40 pm Physician, specialty, service, details: Discussed test HPI, PMHx, lab, radiology results and/or management with resident working with the hospitalist. Will admit for further evaluation and management. Accepts patient for admission. Diagnosis Differential diagnosis: PE, CHF, pneumonia Most likely dx, and/or detailed dx discussion: Sepsis Bilateral pneumonia Dispositon Disposition: Admit
[2025-01-05 13:48] LABS: Alanine Aminotransferase 10 U/L (10-49); Albumin, Serum 3.8 gm/dL (3.4-4.8); Albumin/Globulin Ratio 1.5 (1.2-2.2); Alkaline Phosphatase 73 U/L (46-116); Anion Gap 12 (7-16); Aspartate Amino Transferase 16 U/L (0-34); BUN/Creatinine Ratio 28 Ratio (12-20); Bilirubin,Total 0.4 mg/dL (0.3-1.2); Blood Urea Nitrogen 22 mg/dL (9-23); Calcium 8.6 mg/dL (8.3-10.6); Calcium (Corrected) 8.8 mg/dL (8.5-10.1); Carbon Dioxide 22.8 mMol/L (20.0-31.0); Chloride 107 mMol/L (98-107); Creatinine (Component) 0.8 mg/dL (0.6-1.3); Estimated Creatinine Clearance 40.8 mL/min (>60); Globulin 2.6 gm/dL (2.3-3.5); Glucose 77 mg/dL (74-106); Osmolality,Calculated 285 (275-295); Potassium 4.3 mMol/L (3.4-5.1); Sodium 142 mMol/L (136-145); Total Protein 6.4 gm/dL (5.7-8.2); Troponin I < 0.020 ng/mL (0.0-0.045); eGFR > 60 See Note
--- NOTE | 2025-01-05 14:10 | PC.NURSE ---
PTS IV INFILTRATED. PTS SITE ASSESSED. IV CATH REMOVED AND WAS INTACT. PRESSURE APPLIED TO SITE. DISTAL PULSES CHECKES AND SENSATION. NEGATIVE FOR ANY DEFORMITIES.
[2025-01-05] MEDS: SODIUM CHLORIDE 0.9% 1000 ML 1,000 ML 999 ML IV (14:12)
[2025-01-05 14:24] LABS: INR 1.1 (0.9-1.3); Prothrombin Time 11.5 Seconds (9.0-12.2)
[2025-01-05 14:30] LABS: Lactate (Lactic Acid) 3.7 mMol/L (0.4-2.0)
[2025-01-05 14:43] LABS: Lipase 21 U/L (12-53); Magnesium 1.9 mg/dL (1.6-2.6); Phosphorous 2.8 mg/dL (2.4-5.1); Troponin I < 0.020 ng/mL (0.0-0.045)
[2025-01-05 17:28] LABS: Reflex Lactate? Y
[2025-01-05] MEDS: cefTRIAXone/D5w 1gm IV premix 1 GM/50 ML BAG IV (17:49)
[2025-01-05] MEDS: AZITHROMYCIN 250 MG TABLET 500 MG PO (17:50)
--- NOTE | 2025-01-05 18:11 | PD.EDADDENDU ---
Emergency Room Addendum Addendum Narrative: I took over the care from previous shift physician at 6 PM on 01/05/2025. See previous notes for complete H & P and ED course. I reviewed all diagnostic test results. My review of the US report is My review of the CT report is Diagnoses include: Treatment here included Not yet done: I discussed the case with our hospitalist. About the presentation and exam and diagnostics and treatments here. And need of further care in the hospital. Will accept the patient. Not yet done: Based on my best medical judgment, made decision no further evaluation or treatment indicated at this time. Patient understands and agrees to the discharge instructions customized and printed, see below. Matty Church MD
--- NOTE | 2025-01-05 18:18 | XR_ITS ---
Examination: CT chest with intravenous contrast CT abdomen with intravenous contrast CT pelvis with intravenous contrast 2-D coronal and sagittal reconstructions Time of exam: January 05, 2025 1901 hours Comparison July 20, 2024 INDICATIONS: Onset chest pain or abdominal pain today CTDI: vol (mGy) : 4.4 DLP: (mGycm): 283 Technique: Multiple axial images of the chest, abdomen and pelvis with intravenous contrast, 3.0 mm slice thickness. Images obtained post intravenous injection Isovue 370 60 cc. 2-D sagittal and coronal reconstructions. Low dose protocols were performed. One or more of the following dose reduction techniques were used; automated exposure control, adjustment of the mA and/or KV according to patient size, use of iterative reconstruction technique. Findings: Thoracic aortic calcification no aneurysmal dilatation No pulmonary artery filling defects on this non-CTA study Mild enlargement cardiac contour Extensive nodular parenchymal disease throughout both lungs, severe in the right lung 18 mm anterior right lobe liver cyst and 6 mm posterior right lobe liver cyst Contracted gallbladder Spleen not enlarged Pancreatic calcifications no pancreatic mass Moderate renal parenchymal scar formation, no hydronephrosis Mild colonic ileus No obstruction No pericecal inflammatory changes No diverticulitis Fluid distended small bowel loops Urinary bladder contracted around a Diallo catheter Atrophic uterus No adnexal mass Severe osteopenia Severe lumbar levoscoliosis Advanced narrowing hip joints IMPRESSION: Extensive nodular parenchymal disease throughout both lungs, severe in the right lung, most consistent with pneumonia Follow-up chest imaging is needed to document clearing Moderate renal parenchymal scar formation, no hydronephrosis Mild colonic and small bowel ileus No bowel obstruction or CT findings of appendicitis
--- NOTE | 2025-01-05 18:18 | XR_ITS ---
Examination: Abdomen sonogram, Limited Date and time of exam: January 05, 2025 1953 hours INDICATIONS: Right upper abdominal pain and tenderness today Technique: Real-time vazquez scale transabdominal sonographic images of the upper abdomen obtained. Findings: Normal gallbladder Normal common bile duct 0.3 cm Pancreas is secured by bowel gas Liver 12.1 cm no liver lesions Normal hepatopedal portal venous O Patent IVC IMPRESSION: Negative for cholelithiasis, negative for cholecystitis Normal common bile duct
--- NOTE | 2025-01-05 18:30 | EVENTNT_ITS ---
Documentation for date of: 01/05/25 Event Note Event Note: Ms Connell is a 84-year-old female with past medical history of dementia, scoliosis, back pain, hip pain, GERD and stasis dermatitis who presented to [facility] emergency department on January 05, 2025 with a chief complaint of increased work of breathing hypoxia. Patient was evaluated by EMS, was found to be in the mid 80s on 2 L. Patient in the ED was hypotensive and was given 1 L NS bolus. Patient seen in ED, spO2 above 92 on 3 L nasal canula, patient is alert and oriented to self, complaining of severe abdominal pain, is a poor historian. On examination patient's abdomen is significantly tender distended and rigid, discussed with ED physician recommended getting CT abdomen pelvis, repeat lactate and possible surgical consultation. ED physician decided to CT abdomen pelvis. Will sign out patient to Night Team. Case discussed with Attending Dr. Guerrier. Natalia Mobley PGY1 Disclaimer: This note was dictated by speech recognition. Minor errors in photographic process attendant may be present due to voice recognition software. Discussed with medicine team, patient to get CT scan abdomen first, might need General Surgery consultation . Night team will be updated regarding the patient. ED doctor kay jason also update night ED coverage as well. Dr Todd
--- NOTE | 2025-01-05 18:33 | PC.NURSE ---
CECILIO GUO TALKING WITH FAMILY ON PHONE
[2025-01-05 18:47] LABS: Collection Type, Urine Clean Catch; Squamous Epithelial Cell,Urine 0 /hpf (0-5)
[2025-01-05 18:57] LABS: Bilirubin,Urine Negative (Negative); Blood,Urine Negative (Negative); Clarity,Urine Clear (Clear/Hazy); Color,Urine Yellow (Lt Yel-Yel); Glucose, Urine Negative (Negative); Ketones,Urine 1+ (Negative); Leukocyte Esterase,Urine Negative (Negative); Nitrite,Urine Negative (Negative); PH,Urine 6.5 (5.0-7.0); Protein,Urine Trace (Neg - Trace); RBC,Urine 1 /hpf (0-3); Specific Gravity,Urine 1.024 (1.001-1.035); Urobilinogen,Urine Negative mg/dL (0.0-1.0); WBC,Urine 1 /hpf (0-5)
[2025-01-05 19:05] LABS: Lactic Acid, 3 HR 2.2 mMol/L (0.4-2.0)
--- NOTE | 2025-01-05 19:15 | PC.NURSE ---
Respiratory Tech assumes care of patient at this time, pt noted to be on 2L/min NC with SaO2 less than 90%, O2 increased to 4L/min at this time, SaO2 increased to 92%
[2025-01-05 19:44] LABS: Influenza A Ag Negative; Influenza B Ag Negative
--- NOTE | 2025-01-05 19:49 | PD.EDADDENDU ---
Emergency Room Addendum Addendum Narrative: I took over the care from previous shift physician at ___ on ___.? See previous notes for complete H & P and ED course.?? I was asked to review the final abdominal CT report. My review of the abdominal CT report is?NAD. I discussed the case with our hospitalist.? About the presentation and exam and diagnostics and treatments here.? And need of further care in the hospital.? Will accept the patient. During my watch, the patient remained stable. Matty Church MD
--- NOTE | 2025-01-05 20:03 | PD.RESHP ---
Documentation for date of: 01/05/25 HPI History of Present Illness Chief complaint: SOB History of present illness: 84-year-old female with past medical history of COPD, hypertension, anxiety, dementia, and HFpEF was admitted to the hospital on 01/05/2025 after going to the ED with complaints of shortness of breath and increased oxygen requirements. Patient has some history of dementia at baseline therefore most of the history was taken from chart review and some from what patient was able to answer. Per chart review patient was found hypoxic in the 80s on 2 L and [place] and therefore she was placed on nonrebreather mask and brought to the ER. On assessment by ED team patient had a distended and rigid abdomen therefore they requested abdomen/pelvis CT to rule out any acute abdomen at this time. During my assessment patient was having some increased work of breathing, but she was saturating 98 to 100% on 3 L of O2 via nasal cannula. Patient was complaining of abdominal pain, but stated that she does not recall having any fevers, cough, blood in the stools, diarrhea, nausea, vomiting, or chills. Patient at this time was only complaining of abdominal pain and neck pain. Otherwise she did not have any complaints, but she was having some cough. ED course: Initially was hypotensive, tachycardic, hypoxic, and afebrile. Initial labs were relevant for mild leukocytosis, low hemoglobin, and lactic acidosis. Initial imaging included chest x-ray which showed bilateral pneumonia, EKG that showed sinus tachycardia, and chest/abdomen/pelvis CT that showed extensive nodular parenchymal disease in both lungs which is consistent with pneumonia as well as mild colonic and small bowel ileus. PMH: As above Social Hx: Admits to smoking in the past, denies any alcohol or drugs Allergies: Penicillin Review of Systems Review of Systems Narrative Review of Systems: Constitutional: Denies sweats, Denies weight loss/gain, Denies fever, Denies chills. HEENT: Denies hearing loss, Denies ear pain, Denies postnasal drip, Denies double vision, Denies blurry vision. Respiratory: Denies shortness of breath, Denies cough, Denies wheezing. Cardiovascular: Denies chest pain, Denies palpitations, Denies sudden loss of consciousness. GI: Denies blood in stool, Denies constipation, Admits abdominal pain, Denies difficulty swallowing, Denies nausea or vomit. : Denies urinary incontinence, Denies pain while urinating, Denies increased urinary frequency. MSK: Denies joint pain, Denies joint swelling, Denies numbness. Skin: Denies rash, Denies itching, Denies easy bruising. Neuro: Denies headaches, Denies dizziness, Denies seizures. Past Medical History Past Medical History NEUROLOGIC: Positive Dementia GASTROINTESTINAL: Positive Gastrointestinal Disorders and Gastroesophageal Reflux Disease MUSCULOSKELETAL: Positive Arthritis ENT: Positive Cataracts PSYCHO/SOCIAL: Positive Depression OTHER HISTORY: Positive Blood Transfusions, Blood Transfusion Reaction, Anesthesia Reactions and Chicken Pox Surgical History SURGICAL: Positive Cardiac Surgery, Carotid Endarterectomy, Oral Surgery and Tonsillectomy Social History SMOKING STATUS: Former smoker ALCOHOL: Never Exam Vital Signs Temp Pulse Resp BP Pulse Ox O2 Del Method O2 Flow Rate 99.8 F 106 H 27 H 142/89 H 98 Nasal Cannula 2 01/05/25 18:24 01/05/25 18:24 01/05/25 18:24 01/05/25 18:24 01/05/25 18:24 01/05/25 18:24 01/05/25 18:24 Narrative Exam General: A/O x2 (not to time), mild respiratory distress Eyes: PERRL, EOMI. Anicteric, vision grossly intact. Ears: No ear pain, no ear discharge, Hearing grossly intact. Nose: No nasal discharge. Mouth/Throat: Moist mucous membranes, no redness, no lesions. Neck: Neck supple, non-tender, no cervical lymphadenopathy. Lungs: Clear KIMI to auscultation and percussion, No accessory muscle use. Cardio: Normal S1/S2, regular rhythm, no murmurs, no JVD Abdomen: mildly distended, tense, but not tender, no palpable masses, peristalsis present in all quadrants, no guarding or rebound. Extremities: Symmetrical, no significant deformities, no peripheral edema , non-tender, peripheral pulses presents. Skin: No rashes, no lesions, warm to touch. Neuro: No focal neurological deficits. motor and sensory intact Results: Labs 01/05/25 12:58 01/05/25 12:58 Labs: Short CBC 01/05/25 Range/Units 12:58 WBC 12.7 H (3.6-11.0) Thou/mm3 Hgb 9.7 L (12.0-16.0) g/dL Hct 30.6 L (36.0-46.0) % Plt Count 529 H D (140-440) Thou/mm3 BMP 01/05/25 12:58 Sodium 142 Potassium 4.3 Chloride 107 Carbon Dioxide 22.8 BUN 22 Creatinine 0.8 Glucose 77 Calcium 8.6 Cardiac Enzymes 01/05/25 01/05/25 Range/Units 12:58 12:58 Troponin I < 0.020 < 0.020 (0.0-0.045) ng/mL Liver Function 01/05/25 Range/Units 12:58 Total Bilirubin 0.4 (0.3-1.2) mg/dL AST 16 (0-34) U/L ALT 10 (10-49) U/L Alkaline Phosphatase 73 (46-116) U/L Albumin 3.8 (3.4-4.8) gm/dL Urine 01/05/25 Range/Units 18:23 Urine Color Yellow (Lt Yel-Yel) Urine Clarity Clear (Clear/Hazy) Urine pH 6.5 (5.0-7.0) Ur Specific [place] 1.024 (1.001-1.035) Urine Protein Trace (Neg - Trace) Urine Glucose (UA) Negative (Negative) Quality Measures Quality Measures sepsis Current suspected stage: ruled out Possible source: pulmonary Blood cultures ordered: yes Antibiotic ordered: Yes Advance care planning discussed with:: patient Medications Home Medications and Allergies Home Medications ?Medication ?Instructions ?Recorded ?Confirmed ?Type amitriptyline 50 mg tablet 150 mg PO HS 06/24/21 01/06/25 History zolpidem 10 mg tablet 10 mg PO HS 06/24/21 01/06/25 History Donezepil HCl 1 tab PO HS 01/06/25 01/06/25 History Lorazepam 1 tab PO QDAY 01/06/25 01/06/25 History Vitamin C 500 mg tablet 1 tab PO BID 01/06/25 01/06/25 History cimetidine 300 mg tablet 300 mg PO BID 01/06/25 01/06/25 History furosemide 40 mg tablet 40 mg PO QDAY 01/06/25 01/06/25 History meloxicam 15 mg tablet 15 mg PO QDAY 01/06/25 01/06/25 History potassium chloride 10 mEq 10 meq PO BID 01/06/25 01/06/25 History capsule,extended release prednisone 20 mg tablet 40 mg PO QDAY 01/06/25 01/06/25 History propranolol 20 mg tablet 20 mg PO BID 01/06/25 01/06/25 History Allergies Allergy/AdvReac Type Severity Reaction Status Date / Time clindamycin Allergy Intermediate Rash Verified 01/05/25 12:21 Penicillins Allergy Intermediate Rash Verified 01/05/25 12:21 Visit Medications Acetaminophen (Acetaminophen 325 Mg Tablet) 650 mg PO Q6H PRN PRN Reason: pain and Fever >100.4 Stop: 02/04/25 19:54 Hydrocodone Bitart/Acetaminophen (Hydrocodone/Apap 5/325 Tablet) 1 tab PO Q4HR PRN PRN Reason: PAIN SCALE 4-10(Mod-Sev Stop: 01/10/25 19:54 Albuterol/Ipratropium (Albuterol/Ipratropium (Duoneb) Rt Deirdre 3 Ml Nebu) 3 ml INH Q6HRRT SAMY Stop: 02/05/25 00:59 Azithromycin (Azithromycin 250 Mg Tablet) 500 mg PO QDAY SAMY Stop: 01/13/25 08:59 Heparin Sodium (Porcine) (Heparin Sod Inj 5000 Unit/Ml Vial) 5,000 unit SC Q8HR SAMY Stop: 01/19/25 21:59 Ceftriaxone Sodium/Dextrose (Rocephin/D5w 1gm Iv Premix) 1 gm in 50 mls @ 100 mls/hr IV QDAY SAMY Stop: 01/13/25 08:59 Ondansetron HCl (Ondansetron Inj 2 Mg/Ml Inj 2 Ml) 4 mg IVP Q6H PRN; Protocol PRN Reason: NAUSEA OR VOMITING Stop: 02/04/25 19:54 Discontinued Medications Azithromycin (Azithromycin 250 Mg Tablet) 500 mg PO X1 ONE Stop: 01/05/25 17:34 Last Admin: 01/05/25 17:50 Dose: 500 mg Sodium Chloride (Ns) 1,000 mls @ 999 mls/hr IV .Q1H1M ONE Stop: 01/05/25 15:05 Last Infusion: 01/05/25 17:44 Dose: Infused Ceftriaxone Sodium/Dextrose (Rocephin/D5w 1gm Iv Premix) 1 gm in 50 mls @ 100 mls/hr IV X1 ONE Stop: 01/05/25 18:02 Last Infusion: 01/05/25 18:45 Dose: Infused Lorazepam (Lorazepam 0.5 Mg Tablet) 0.5 mg PO X1 ONE Stop: 01/05/25 12:26 Last Admin: 01/05/25 12:42 Dose: 0.5 mg Assessment & Plan Plan 84-year-old female with past medical history of COPD, hypertension, anxiety, dementia, and HFpEF was admitted to the hospital on 01/05/2025 for acute hypoxic respiratory failure likely secondary to community-acquired pneumonia. #Acute hypoxic respiratory failure #Community-acquired pneumonia #Lactic acid elevation Patient came in with complaint of shortness of breath from [facility] as well as increased O2 requirements. Patient does have a history of COPD, there was no solution on exam Patient's chest x-ray and CT of chest/abdomen/pelvis showed pneumonia Patient's qSOFA and curb 65 are 2 and 3 respectively Patient is on 2 L O2 at baseline Plan: Azithromycin and Rocephin (01/05/2025?) DuoNebs every 6 hours Trend lactic acid Ordered VBG Sputum and blood cultures ordered Will continue to monitor #Abdominal distention Patient has some abdominal distention which on physical exam is nontender, but is tense likely in the setting of patient tensing abdominal muscles. Chest/abdomen/pelvis CT showed mild colonic and small bowel ileus and fluid distended small bowel loops Patient unaware when was the last time she had a bowel movement Plan: Simethicone x 1 Chronic diseases: #Hx of dementia #Hx of anxiety #Hx of hypertension #Hx of HFpEF (EF 55 to 60% on 2023) We will hold off on antihypertensive medications for now given that patient blood pressure was soft on admission. Did had 1 L bolus in the ED only given history of heart failure. Restarted home medications 1 minute reconciliation is done. Disposition: Patient admitted to [facility] for AHRF 2/ PNA . Diet: Cardiac GI prophylaxis: not indicated DVT prophylaxis: heparin sub cu Code: Full Case disclosed with Attending Dr. Radha Kline PGY1 Disclaimer: Even though this this note was dictated by speech recognition and even though it was carefully revised there may still be minor errors in head start director due to voice recognition software. Attending Provider Attestation/Addendum I reviewed labs, imaging, EKG, home medications and prior available records. Face to face evaluation was performed by me. I have personally examined the patient and discussed assessment and plan with the IM team. I reviewed the resident note and agree with the plan with exceptions as below. Acute hypoxic respiratory failure Right-sided pneumonia COPD HFpEF Elevated lactic acid Start ceftriaxone/azithromycin Start DuoNebs Trend lactic acid Careful IV hydration in the setting of history of HFpEF Hold home Lasix
[2025-01-05 20:58] LABS: Base Excess, Venous -1 (-3-3); O2 Saturation, Venous 54 % (96-97); PCO2, Venous 30 mmHg (36-56); PO2, Venous 30 mmHg (15-58); pH, Venous 7.48 (7.33-7.66)
[2025-01-05 20:59] LABS: Lactate (Lactic Acid) 1.6 mMol/L (0.4-2.0)
--- NOTE | 2025-01-05 21:00 | PC.NURSE ---
Pt noted to have upper denture and a night gown, no other personal belonging noted
--- NOTE | 2025-01-05 21:38 | PC.NURSE ---
Report called to floor nurseKellee RN
[2025-01-05] MEDS: HEPARIN SOD INJ 5000 UNIT/ML VIAL SC (22:36)
[2025-01-05] MEDS: SIMETHICONE 80 MG CHEW PO (22:36)
[2025-01-06] VITALS (15 sets, daily range): BP systolic 74–156; BP diastolic 44–74; PULSE 76–98; RESP 16–96; TEMP 35.9–36.6; O2SAT 92–100
[2025-01-06] MEDS: SODIUM CHLORIDE RT 10% 15 ML NEBU 5 ML INH (01:28)
[2025-01-06] MEDS: ALBUTEROL/IPRATROPIUM (Duoneb) RT SOL 3 ML NEBU INH ×4 (01:29→18:46)
[2025-01-06] MEDS: HEPARIN SOD INJ 5000 UNIT/ML VIAL SC (05:41)
[2025-01-06] MEDS: cefTRIAXone/D5w 1gm IV premix 1 GM/50 ML BAG IV (08:31)
[2025-01-06] MEDS: AZITHROMYCIN 250 MG TABLET 500 MG PO (08:31)
--- NOTE | 2025-01-06 10:17 | PD.RESPRO ---
Documentation for date of: 01/06/25 Subjective Subjective Interval history: Patient is an overnight admit. Patient seen and examined at bedside this morning. Patient is currently saturating 97% on 1 L oxygen, denies any chest pain shortness of breath or cough. Patient appears to be upset due to spicy breakfast. Lab reported patient is difficult to steak and were unable to draw blood this morning after multiple attempts. Patient requested to not be stuck again, after reviewing labs which has improved lactic acid is 1.6 we will hold off on the labs till tomorrow morning. Patient also lost her IV access, requested telemetry charge nurse to insert ultrasound-guided IV access so that patient can receive her IV ceftriaxone. Patient also is uncomfortable due to significant gas, will order simethicone as needed and will add bowel regimen. Vitals are stable, labs are reviewed and will continue IV antibiotics. Exam Vital Signs Temp Pulse Resp BP Pulse Ox O2 Del Method O2 Flow Rate 97.4 F 90 18 112/53 L 97 Nasal Cannula 2 01/06/25 07:40 01/06/25 08:00 01/06/25 07:40 01/06/25 07:40 01/06/25 07:40 01/06/25 07:40 01/06/25 07:40 Narrative Exam GENERAL: A&Ox3 . elderly female, sppears to be upset, Awake, Not in acute distress NEURO: no focal neurological deficits HEENT: Atraumatic, Normocephalic. mucous membranes moist. Eyes open, symmetrical, & clear HEART: Normal Heart Sounds LUNGS: Clear to auscultation with no wheezing or crackles. ABDOMEN: soft, non-distended, non-tender, bowel sounds heard, no guarding or rebound tenderness SKIN: No Rash or ecchymoses EXTREMITIES: No edema, tenderness, able to move all 4 extremities, pedal pulses palpated Objective Labs 01/08/25 06:06 01/08/25 06:06 Labs: Laboratory Results - last 24 hr 01/05/25 01/05/25 01/05/25 12:58 12:58 14:22 WBC 12.7 H RBC 4.20 Hgb 9.7 L Hct 30.6 L MCV 73 L MCH 23.1 L MCHC 31.7 RDW Std Deviation 59.3 H Plt Count 529 H D Neut % (Auto) 83 H Lymph % (Auto) 7 L [place] % (Auto) 8 Eos % (Auto) 1 Baso % (Auto) 1 Neut # (Auto) 10.5 H Lymph # (Auto) 0.9 L [place] # (Auto) 1.0 H Eos # (Auto) 0.1 Baso # (Auto) 0.1 Immature Gran # (Auto) 0.15 H Absolute Nucleated RBC 0.00 Immature Gran % 1 H Nucleated RBC % 0 PT 11.5 INR 1.1 VBG pH VBG pCO2 VBG pO2 VBG O2 Sat (Kayla) VBG Base Excess Sodium 142 Potassium 4.3 Chloride 107 Carbon Dioxide 22.8 Anion Gap 12 BUN 22 Creatinine 0.8 Estim Creat Clear Calc 40.8 L eGFR > 60 BUN/Creatinine Ratio 28 H Glucose 77 Calculated Osmolality 285 Lactic Acid 3.7 H Calcium 8.6 Corrected Calcium 8.8 Phosphorus 2.8 Magnesium 1.9 Total Bilirubin 0.4 AST 16 ALT 10 Alkaline Phosphatase 73 Troponin I < 0.020 < 0.020 Total Protein 6.4 Albumin 3.8 Globulin 2.6 Albumin/Globulin Ratio 1.5 Lipase 21 Procalcitonin 0.10 Ur Collection Type Urine Color Urine Clarity Urine pH Ur Specific [place] Urine Protein Urine Glucose (UA) Urine Ketones Urine Blood Urine Nitrite Urine Bilirubin Urine Urobilinogen (Auto) Ur Leukocyte Esterase Urine RBC Urine WBC Ur Squamous Epith Cells Urine Bacteria Influenza A (Rapid) Influenza B (Rapid) 01/05/25 01/05/25 01/05/25 17:53 18:23 18:41 WBC RBC Hgb Hct MCV MCH MCHC RDW Std Deviation Plt Count Neut % (Auto) Lymph % (Auto) [place] % (Auto) Eos % (Auto) Baso % (Auto) Neut # (Auto) Lymph # (Auto) [place] # (Auto) Eos # (Auto) Baso # (Auto) Immature Gran # (Auto) Absolute Nucleated RBC Immature Gran % Nucleated RBC % PT INR VBG pH VBG pCO2 VBG pO2 VBG O2 Sat (Kayla) VBG Base Excess Sodium Potassium Chloride Carbon Dioxide Anion Gap BUN Creatinine Estim Creat Clear Calc eGFR BUN/Creatinine Ratio Glucose Calculated Osmolality Lactic Acid 2.2 H Calcium Corrected Calcium Phosphorus Magnesium Total Bilirubin AST ALT Alkaline Phosphatase Troponin I Total Protein Albumin Globulin Albumin/Globulin Ratio Lipase Procalcitonin Ur Collection Type Clean Catch Urine Color Yellow Urine Clarity Clear Urine pH 6.5 Ur Specific [place] 1.024 Urine Protein Trace Urine Glucose (UA) Negative Urine Ketones 1+ A Urine Blood Negative Urine Nitrite Negative Urine Bilirubin Negative Urine Urobilinogen (Auto) Negative Ur Leukocyte Esterase Negative Urine RBC 1 Urine WBC 1 Ur Squamous Epith Cells 0 Urine Bacteria None Influenza A (Rapid) Negative Influenza B (Rapid) Negative 01/05/25 20:35 WBC RBC Hgb Hct MCV MCH MCHC RDW Std Deviation Plt Count Neut % (Auto) Lymph % (Auto) [place] % (Auto) Eos % (Auto) Baso % (Auto) Neut # (Auto) Lymph # (Auto) [place] # (Auto) Eos # (Auto) Baso # (Auto) Immature Gran # (Auto) Absolute Nucleated RBC Immature Gran % Nucleated RBC % PT INR VBG pH 7.48 VBG pCO2 30 L VBG pO2 30 VBG O2 Sat (Kayla) 54 L VBG Base Excess -1 Sodium Potassium Chloride Carbon Dioxide Anion Gap BUN Creatinine Estim Creat Clear Calc eGFR BUN/Creatinine Ratio Glucose Calculated Osmolality Lactic Acid 1.6 Calcium Corrected Calcium Phosphorus Magnesium Total Bilirubin AST ALT Alkaline Phosphatase Troponin I Total Protein Albumin Globulin Albumin/Globulin Ratio Lipase Procalcitonin Ur Collection Type Urine Color Urine Clarity Urine pH Ur Specific [place] Urine Protein Urine Glucose (UA) Urine Ketones Urine Blood Urine Nitrite Urine Bilirubin Urine Urobilinogen (Auto) Ur Leukocyte Esterase Urine RBC Urine WBC Ur Squamous Epith Cells Urine Bacteria Influenza A (Rapid) Influenza B (Rapid) ABG Interpretation ABG results: 01/05/25 20:35 VBG pH 7.48 VBG pCO2 30 L VBG pO2 30 VBG Base Excess -1 Quality Measures Quality Measures sepsis Current suspected stage: sepsis Possible source: pulmonary Blood cultures ordered: yes Antibiotic ordered: Yes Advance care planning discussed with:: other Assessment & Plan Assessment Current Active Medications: Generic Name Dose Route Start Last Admin Trade Name Freq PRN Reason Stop Dose Admin Acetaminophen 650 mg 01/05/25 19:55 Acetaminophen 325 Mg Tablet PO 02/04/25 19:54 Q6H PRN pain and Fever >100.4 Hydrocodone Bitart/Acetaminophen 1 tab 01/05/25 19:55 Hydrocodone/Apap 5/325 Tablet PO 01/10/25 19:54 Q4HR PRN PAIN SCALE 4-10(Mod-Sev Albuterol/Ipratropium 3 ml 01/06/25 01:00 01/06/25 06:11 Albuterol/Ipratropium (Duoneb) Rt Deirdre 3 Ml Nebu INH 02/05/25 00:59 3 ml Q6HRRT SAMY Administration Azithromycin 500 mg 01/06/25 09:00 01/06/25 08:31 Azithromycin 250 Mg Tablet PO 01/13/25 08:59 500 mg QDAY SAMY Administration Heparin Sodium (Porcine) 5,000 unit 01/05/25 22:00 01/06/25 05:41 Heparin Sod Inj 5000 Unit/Ml Vial SC 01/19/25 21:59 5,000 unit Q8HR SAMY Administration Ceftriaxone Sodium/Dextrose 1 gm in 50 mls @ 100 mls/hr 01/06/25 09:00 01/06/25 08:31 Rocephin/D5w 1gm Iv Premix IV 01/13/25 08:59 100 mls/hr QDAY SAMY Administration Nystatin 0 gm 01/06/25 21:00 Nystatin Pwd 15 Gm Btl TOP 02/05/25 20:59 BID SAMY Ondansetron HCl 4 mg 01/05/25 19:55 Ondansetron Inj 2 Mg/Ml Inj 2 Ml IVP 02/04/25 19:54 Q6H PRN NAUSEA OR VOMITING Protocol Plan Ms. Bray is a 84-year-old female with past medical history of COPD, hypertension, anxiety, dementia, and HFpEF was admitted to the hospital on 01/05/2025 for acute hypoxic respiratory failure likely secondary to community-acquired pneumonia. #Acute hypoxic respiratory failure 2/2 to #Community-acquired pneumonia #Lactic acid elevation- resolved Patient came in with complaint of shortness of breath from [facility] as well as increased O2 requirements. Patient does have a history of COPD, there was no solution on exam Patient's chest x-ray and CT of chest/abdomen/pelvis showed pneumonia Patient's qSOFA and curb 65 are 2 and 3 respectively Patient is on 2 L O2 at baseline Plan: Azithromycin and Rocephin (01/05/2025?) DuoNebs every 6 hours VBG WNL Sputum and blood cultures ordered Will continue to monitor #Abdominal distention Patient has some abdominal distention which on physical exam is nontender, but is tense likely in the setting of patient tensing abdominal muscles. Chest/abdomen/pelvis CT showed mild colonic and small bowel ileus and fluid distended small bowel loops Patient unaware when was the last time she had a bowel movement Plan: Simethicone ordered fro PRN for gas Bowel regimen PRN #Hx of hypertension #Hx of HFpEF (EF 55 to 60% on 2023) We will hold off on antihypertensive medications for now given that patient blood pressure is soft on admission. Did have 1 L bolus in the ED due to history of heart failure. -Echo done on 03/28/24: Stage I diastolic dysfunction. Estimated EF 55-60% -Will hold pt's home lasix due to sepsis -Pt is not in acute CHF exacerbation and is not fluid overload state #Hx of dementia #Hx of anxiety -Resumed home amitriptyline, donepezil, lorazepam, Ambien Disposition: Patient admitted to [facility] for AHRF 2/ PNA . Diet: Cardiac GI prophylaxis: not indicated DVT prophylaxis: heparin sub cu Code: Full Assessment and plan discussed with attending physician Dr. Chey Wing (PGY-1)- Internal medicine resident Attending Provider Attestation/Addendum Face to face evaluation was performed by me. I have personally seen and examined the patient. I discussed the assessment and plan with the entire medicine team. I reviewed available medical records, imaging studies, laboratory results. I agree with the above subjective data, objective findings, assessment and plan except as corrected by me or noted below Acute hypoxic respite failure COPD with acute exacerbation Community-acquired pneumonia right lower lobe likely bacterial gram-positive cocci lactic acidosis Severe sepsis present admission due to above, without septic shock?sepsis improving -continue antibiotics as ordered, monitor clinical course, labs and vitals closely Steroids, breathing treatments Once more stable physical therapy evaluation to happen More than > 30 minutes spent on the encounter
[2025-01-06] MEDS: HYDROcodone/APAP 5/325 TABLET 1 TAB PO (14:33)
--- NOTE | 2025-01-06 15:31 | PC.SS ---
Reji Bray is a 84-year-old female admitted to Med Surg for AHRD 2/2 PNA. SS conducted bedside contact with the patient to complete initial assessment and to discuss discharge planning, pt was agitated therefore, SS made over the phone contact with pt dtr Ankitaamaya Joyce [phone]. Role and reason explained. Ankita confirmed demographic information. She identifies herself as the pts surrogate decision maker. Ankita states pt has been residing at [facility], plan is for her to return. Pt will need assistance with transport and does not possess coverage. No further intervention required at this time, forensic social worker would be available to address any further concerns. DC Plan: [facility] Contact: Ankita Figueroa Address: Confirmed on face sheet PCP: Marcelo
[2025-01-06] MEDS: DONEPEZIL HCL 5 MG TABLET PO (20:27)
[2025-01-06] MEDS: NYSTATIN PWD 15 GM BTL TOP (20:27)
[2025-01-06] MEDS: AMITRIPTYLINE HCL 25 MG TABLET 150 MG PO (20:27)
[2025-01-06] MEDS: ZOLPIDEM 5 MG TABLET 10 MG PO (20:27)
--- NOTE | 2025-01-06 23:33 | PC.NURSE ---
WEB ADMINISTRATOR called due to hypotension, pt alert and responsive. Ekg and meds (SEE MAR) ordered.
[2025-01-06] MEDS: SODIUM CHLORIDE 0.9% 500 ML 500 ML 999 ML IV (23:57)
[2025-01-07] VITALS (14 sets, daily range): BP systolic 83–128; BP diastolic 40–81; PULSE 75–103; RESP 17–99; TEMP 36.1–36.9; O2SAT 90–100
--- NOTE | 2025-01-07 | PD.RESEVENT ---
Documentation for date of: 01/07/25 Event Note Event Note: Rapid response called at 2327 due to hypotension Patient was evaluated by the medicine team found to have blood pressure 77/46 on the left arm and on the right arm 83/58, gave 500 mL bolus of NS, will continue to follow at this time. Case discussed with my attending Dr. Radha Valadez MD PGY-1
[2025-01-07] MEDS: ALBUTEROL/IPRATROPIUM (Duoneb) RT SOL 3 ML NEBU INH ×4 (00:30→18:51)
[2025-01-07] MEDS: MIDODRINE 5 MG TABLET PO ×4 (01:16→21:34)
[2025-01-07] MEDS: HEPARIN SOD INJ 5000 UNIT/ML VIAL SC (05:25)
[2025-01-07 05:56] LABS: Basophils % (Auto) 0 % (0-2.5); Eosinophils # (Auto) 0.2 Thou/mm3 (0.0-0.5); Eosinophils % (Auto) 1 % (0-10); Hematocrit 23.5 % (36.0-46.0); Immature Granulocytes % (Auto) 1 % (0-0); Lymphocytes # (Auto) 0.8 Thou/mm3 (1.0-4.8); Lymphocytes % (Auto) 7 % (10-50); Mean Corpuscular HGB Conc 31.1 g/dl (31.0-37.0); Mean Corpuscular Hemoglobin 23.2 pg (25.0-35.0); Mean Corpuscular Volume 75 fL (80-100); Monocytes % (Auto) 9 % (0-12); Neutrophils # (Auto) 9.4 Thou/mm3 (1.8-7.7); Neutrophils % (Auto) 82 % (37-80); Nucleated Red Blood Cell % 0 /100 WBC (0); Platelet Count 495 Thou/mm3 (140-440); RDW Standard Deviation 61.7 fL (36.4-46.3); Red Blood Count 3.15 Miln/mm3 (4.00-5.20); White Blood Count 11.5 Thou/mm3 (3.6-11.0)
[2025-01-07 06:09] LABS: Hemoglobin 7.3 g/dL (12.0-16.0)
[2025-01-07 06:36] LABS: Alanine Aminotransferase < 7 U/L (10-49); Albumin/Globulin Ratio 1.4 (1.2-2.2); Alkaline Phosphatase 60 U/L (46-116); Anion Gap 8 (7-16); Aspartate Amino Transferase 16 U/L (0-34); BUN/Creatinine Ratio 19 Ratio (12-20); Bilirubin,Total 0.2 mg/dL (0.3-1.2); Blood Urea Nitrogen 13 mg/dL (9-23); Calcium 7.6 mg/dL (8.3-10.6); Calcium (Corrected) 8.4 mg/dL (8.5-10.1); Carbon Dioxide 20.9 mMol/L (20.0-31.0); Chloride 110 mMol/L (98-107); Creatinine (Component) 0.7 mg/dL (0.6-1.3); Estimated Creatinine Clearance 45.9 mL/min (>60); Globulin 2.1 gm/dL (2.3-3.5); Glucose 85 mg/dL (74-106); Magnesium 1.9 mg/dL (1.6-2.6); Osmolality,Calculated 276 (275-295); Potassium 4.3 mMol/L (3.4-5.1); Sodium 139 mMol/L (136-145); Total Protein 5.1 gm/dL (5.7-8.2); eGFR > 60 See Note
[2025-01-07] MEDS: AZITHROMYCIN 250 MG TABLET 500 MG PO (09:16)
[2025-01-07] MEDS: LORazepam 0.5 MG TABLET PO (09:16)
[2025-01-07] MEDS: NYSTATIN PWD 15 GM BTL TOP ×2 (09:17→21:34)
[2025-01-07] MEDS: cefTRIAXone/D5w 1gm IV premix 1 GM/50 ML BAG IV (09:45)
[2025-01-07 10:16] LABS: Ferritin 66 ng/mL (7.3-270.7); Iron 6 mcg/dL (50-170); Percent Iron Saturation 2 % (20-55); Total Iron Binding Capacity 209 mcg/dL (250-425); Unsaturated Iron Binding 203 (225-295)
[2025-01-07] MEDS: PANTOPRAZOLE INJ 40 MG VIAL IVP ×2 (10:43→21:33)
[2025-01-07 11:15] LABS: Hematocrit 24.2 % (36.0-46.0)
[2025-01-07 11:17] LABS: Hemoglobin 7.7 g/dL (12.0-16.0)
--- NOTE | 2025-01-07 11:38 | ESPR_ITS ---
Documentation for date of: 01/07/25 Subjective Subjective Interval history: Overnight team reported patient had a rapid response for hypotension and 500 mL of bolus fluids plus midodrine was given. Patient is seen and examined at bedside this morning patient appears to be a little confused however she is oriented to self. Patient endorses to resolution of her abdominal pain. Currently saturating 92% on room air and vitals are stable blood pressure is 99/49. Labs are reviewed leukocyte count is downtrended to 11.5, Patient's hemoglobin this morning's lab was 7.3 we will continue to closely monitor however there is no signs of active bleeding we will repeat H&H and consult GI and will continue to monitor for signs of bleeding and if it drops below 7 we will transfuse, will order iron panel. pt has no other complains. Exam Vital Signs Temp Pulse Resp BP Pulse Ox O2 Del Method O2 Flow Rate 98.4 F 98 18 128/81 93 L Room Air 1 01/07/25 08:00 01/07/25 08:00 01/07/25 08:00 01/07/25 08:00 01/07/25 08:00 01/07/25 08:00 01/06/25 15:49 Narrative Exam GENERAL: A&Ox3 . elderly female, Awake, Not in acute distress NEURO: no focal neurological deficits HEENT: Atraumatic, Normocephalic. mucous membranes moist. Eyes open, symmetrical, & clear HEART: Normal Heart Sounds LUNGS: Clear to auscultation with no wheezing or crackles. ABDOMEN: soft, non-distended, non-tender, bowel sounds heard, no guarding or rebound tenderness SKIN: No Rash or ecchymoses EXTREMITIES: No edema, tenderness, able to move all 4 extremities, pedal pulses palpated Objective Labs 01/08/25 06:06 01/08/25 06:06 Labs: Laboratory Results - last 24 hr 01/07/25 01/07/25 04:55 10:51 WBC 11.5 H RBC 3.15 L Hgb 7.3 L D 7.7 L Hct 23.5 L 24.2 L MCV 75 L MCH 23.2 L MCHC 31.1 RDW Std Deviation 61.7 H Plt Count 495 H D Neut % (Auto) 82 H Lymph % (Auto) 7 L Sullivan % (Auto) 9 Eos % (Auto) 1 Baso % (Auto) 0 Neut # (Auto) 9.4 H Lymph # (Auto) 0.8 L Sullivan # (Auto) 1.0 H Eos # (Auto) 0.2 Baso # (Auto) 0.0 Immature Gran # (Auto) 0.10 H Absolute Nucleated RBC 0.00 Immature Gran % 1 H Nucleated RBC % 0 Sodium 139 Potassium 4.3 Chloride 110 H Carbon Dioxide 20.9 Anion Gap 8 BUN 13 Creatinine 0.7 Estim Creat Clear Calc 45.9 L eGFR > 60 BUN/Creatinine Ratio 19 Glucose 85 Calculated Osmolality 276 Calcium 7.6 L Corrected Calcium 8.4 L Magnesium 1.9 Iron 6 L TIBC 209 L Iron Saturation 2 L Unsat Iron Binding 203 L Ferritin 66 Total Bilirubin 0.2 L AST 16 ALT < 7 L Alkaline Phosphatase 60 Total Protein 5.1 L Albumin 3.0 L D Globulin 2.1 L Albumin/Globulin Ratio 1.4 ABG Interpretation ABG results: 01/05/25 20:35 VBG pH 7.48 VBG pCO2 30 L VBG pO2 30 VBG Base Excess -1 Quality Measures Quality Measures sepsis Current suspected stage: sepsis Possible source: pulmonary Blood cultures ordered: yes Antibiotic ordered: Yes Advance care planning discussed with:: patient Assessment & Plan Assessment Current Active Medications: Generic Name Dose Route Start Last Admin Trade Name Freq PRN Reason Stop Dose Admin Acetaminophen 650 mg 01/06/25 10:44 Acetaminophen 325 Mg Tablet PO 02/04/25 19:54 Q6H PRN pain and Fever >100.4 Hydrocodone Bitart/Acetaminophen 1 tab 01/05/25 19:55 01/06/25 14:33 Hydrocodone/Apap 5/325 Tablet PO 01/10/25 19:54 1 tab Q4HR PRN Administration PAIN SCALE 4-10(Mod-Sev Albuterol/Ipratropium 3 ml 01/06/25 01:00 01/07/25 06:39 Albuterol/Ipratropium (Duoneb) Rt Deirdre 3 Ml Nebu INH 02/05/25 00:59 3 ml Q6HRRT SAMY Administration Amitriptyline HCl 150 mg 01/06/25 21:00 01/06/25 20:27 Amitriptyline Hcl 25 Mg Tablet PO 02/05/25 20:59 150 mg HS SAMY Administration Azithromycin 500 mg 01/06/25 09:00 01/07/25 09:16 Azithromycin 250 Mg Tablet PO 01/13/25 08:59 500 mg QDAY SAMY Administration Donepezil HCl 5 mg 01/06/25 21:00 01/06/25 20:27 Donepezil Hcl 5 Mg Tablet PO 02/05/25 20:59 5 mg HS SAMY Administration Heparin Sodium (Porcine) 5,000 unit 01/05/25 22:00 01/07/25 05:25 Heparin Sod Inj 5000 Unit/Ml Vial SC 01/19/25 21:59 5,000 unit Q8HR SAMY Administration Ceftriaxone Sodium/Dextrose 1 gm in 50 mls @ 100 mls/hr 01/06/25 09:00 01/07/25 09:45 Rocephin/D5w 1gm Iv Premix IV 01/13/25 08:59 100 mls/hr QDAY SAMY Administration Lorazepam 0.5 mg 01/07/25 09:15 01/07/25 09:16 Lorazepam 0.5 Mg Tablet PO 01/12/25 09:14 0.5 mg QDAY SAMY Administration Midodrine 5 mg 01/07/25 01:00 01/07/25 05:25 Midodrine 5 Mg Tablet PO 02/06/25 00:59 5 mg TID SAMY Administration Nystatin 0 gm 01/06/25 21:00 01/07/25 09:17 Nystatin Pwd 15 Gm Btl TOP 02/05/25 20:59 1 applicatio BID SAMY Administration Ondansetron HCl 4 mg 01/05/25 19:55 Ondansetron Inj 2 Mg/Ml Inj 2 Ml IVP 02/04/25 19:54 Q6H PRN NAUSEA OR VOMITING Protocol Pantoprazole Sodium 40 mg 01/07/25 09:45 01/07/25 10:43 Pantoprazole Inj 40 Mg Vial IVP 02/06/25 09:44 40 mg BID SAMY Administration Sennosides 1 tab 01/06/25 16:55 Senna/Docusate Sod 1 Tab Tablet PO 02/05/25 16:54 QDAY PRN CONSTIPATION Protocol Simethicone 80 mg 01/06/25 16:42 Simethicone 80 Mg Chew PO 02/05/25 16:41 QID PRN GAS Zolpidem Tartrate 5 mg 01/07/25 21:00 Zolpidem 5 Mg Tablet PO 02/06/25 20:59 HS SAMY Plan Ms. Bray is a 84-year-old female with past medical history of COPD, hypertension, anxiety, dementia, and HFpEF was admitted to the hospital on 01/05/2025 for acute hypoxic respiratory failure likely secondary to community- acquired pneumonia. #Acute hypoxic respiratory failure 2/2 to #Community-acquired pneumonia #Lactic acid elevation- resolved Patient came in with complaint of shortness of breath from [facility] as well as increased O2 requirements. Patient does have a history of COPD, there was no solution on exam Patient's chest x-ray and CT of chest/abdomen/pelvis showed pneumonia Patient's qSOFA and curb 65 are 2 and 3 respectively Patient is on 2 L O2 at baseline Plan: -Azithromycin and Rocephin (01/05/2025?) -DuoNebs every 6 hours -VBG WNL -Blood and urine cultures have no growth -Will continue to monitor #Microcytic anemia #Iron deficiency anemia -No signs of active bleeding noted - Hemoglobin 7.2, hematocrit 23.5, MCV 75 - Iron panel: Iron 6, TIBC 2 9, iron saturation 2%, and saturating iron binding 203, ferritin 66 -Due to patient's acute infection of pneumonia patient on admission was septic therefore we will hold iron infusion or IV iron will consider supplemental iron on discharge. - Will continue to monitor closely for any signs of bleeding - Repeat H&H shows hemoglobin 7.7 and hematocrit 24.2 - Type and screen is ordered - Will transfuse if hemoglobin drops below 7 -Ordered pantoprazole twice daily -GI consulted, appreciate recommendations #Abdominal distention- resolved Patient has some abdominal distention which on physical exam is nontender, but is tense likely in the setting of patient tensing abdominal muscles. Chest/abdomen/pelvis CT showed mild colonic and small bowel ileus and fluid distended small bowel loops Patient unaware when was the last time she had a bowel movement Plan: -Simethicone ordered fro PRN for gas -Bowel regimen PRN #Hx of hypertension #Hx of HFpEF (EF 55 to 60% on 2023) We will hold off on antihypertensive medications for now given that patient blood pressure is soft on admission. Did have 1 L bolus in the ED due to history of heart failure. -Echo done on 03/28/24: Stage I diastolic dysfunction. Estimated EF 55-60% -Will hold pt's home lasix due to sepsis -Pt is not in acute CHF exacerbation and is not fluid overload state #Hx of dementia #Hx of anxiety -Resumed home amitriptyline, donepezil, lorazepam, Ambien Disposition: Patient admitted to [facility] for AHRF 08/26 PNA . Diet: Cardiac GI prophylaxis: not indicated DVT prophylaxis: heparin sub cu Code: Full Assessment and plan discussed with attending physician Dr. Chey Wing (PGY-1)- Internal medicine resident Attending Provider Attestation/Addendum Face to face evaluation was performed by me. I have personally seen and examined the patient. I discussed the assessment and plan with the entire medicine team. I reviewed available medical records, imaging studies, laboratory results. I agree with the above subjective data, objective findings, assessment and plan except as corrected by me or noted below Acute hypoxic respite failure COPD with acute exacerbation Community-acquired pneumonia right lower lobe likely bacterial gram-positive cocci lactic acidosis Severe sepsis present admission due to above, without septic shock?sepsis improving Had issues with peripheral IV access again she last IV access again, nursing staff was able to secure another line otherwise PICC line was being considered -continue antibiotics , steroids, breathing treatments discharge planning More than > 30 minutes spent on the encounter
--- NOTE | 2025-01-07 17:07 | PCS.ST ---
Rounding Note: Patient had rapid response initiated last night. Patient receiving IV antibiotics. Plan is to monitor for 1 more day. Possible d/c tomorrow to SNF.
--- NOTE | 2025-01-07 20:01 | PD.IMCONS ---
HPI Data of Consult Requesting Physician: Olman Guerrier MD Primary Care Provider: Physician No Primary/Family Consult Narrative Reason for consult: Normal distention, downtrending hemoglobin hematocrit to 7.3/23.5 History of present illness: 84-year-old female brought in from the long-term with shortness of breath Initially she was hypotensive hypoxic requiring 100% FiO2 During the course of admission she was found to have hemoglobin 9.7 hematocrit 30.6 which is gone down to 7.3 and 23.5 with a platelet count of 495,000 and pro time INR 1.1 CT scan of the chest abdomen pelvis with contrast showed nodular disease much worse on the right side and the left side Pulm ultrasound shows negative cholelithiasis Patient has a history of dementia scoliosis chronic back pain and hip pain gastroesophageal disease COPD cc:: cc: Olman Guerrier MD Review of Systems Review of Systems Systems Reviewed: All systems reviewed, normal except as documented Past Medical History Surgical History OTHER SURGICAL HX: Has a history of present illness Meds Home Medications and Allergies Home Medications ?Medication ?Instructions ?Recorded ?Confirmed ?Type amitriptyline 50 mg tablet 150 mg PO HS 06/24/21 01/06/25 History zolpidem 10 mg tablet 10 mg PO HS 06/24/21 01/06/25 History Donezepil HCl 1 tab PO HS 01/06/25 01/06/25 History Lorazepam 1 tab PO QDAY 01/06/25 01/06/25 History Vitamin C 500 mg tablet 1 tab PO BID 01/06/25 01/06/25 History cimetidine 300 mg tablet 300 mg PO BID 01/06/25 01/06/25 History furosemide 40 mg tablet 40 mg PO QDAY 01/06/25 01/06/25 History meloxicam 15 mg tablet 15 mg PO QDAY 01/06/25 01/06/25 History potassium chloride 10 mEq 10 meq PO BID 01/06/25 01/06/25 History capsule,extended release prednisone 20 mg tablet 40 mg PO QDAY 01/06/25 01/06/25 History propranolol 20 mg tablet 20 mg PO BID 01/06/25 01/06/25 History Allergies Allergy/AdvReac Type Severity Reaction Status Date / Time clindamycin Allergy Intermediate Rash Verified 01/05/25 12:21 Penicillins Allergy Intermediate Rash Verified 01/05/25 12:21 Exam Vital Signs Temp Pulse Resp BP Pulse Ox O2 Del Method O2 Flow Rate 97.8 F 103 H 20 125/75 95 Room Air 1 01/07/25 16:00 01/07/25 18:51 01/07/25 18:51 01/07/25 16:00 01/07/25 18:51 01/07/25 16:00 01/06/25 15:49 Constitutional Comments: Chronically ill-appearing Routine Respiratory Exam Comments: Scattered rhonchi Routine Abdominal Exam Comments: Distended with positive bowel sounds Results Labs 01/07/25 10:51 01/07/25 04:55 Labs: Short CBC 01/07/25 01/07/25 Range/Units 04:55 10:51 WBC 11.5 H (3.6-11.0) Thou/mm3 Hgb 7.3 L D 7.7 L (12.0-16.0) g/dL Hct 23.5 L 24.2 L (36.0-46.0) % Plt Count 495 H D (140-440) Thou/mm3 BMP 01/07/25 04:55 Sodium 139 Potassium 4.3 Chloride 110 H Carbon Dioxide 20.9 BUN 13 Creatinine 0.7 Glucose 85 Calcium 7.6 L Liver Function 01/07/25 Range/Units 04:55 Total Bilirubin 0.2 L (0.3-1.2) mg/dL AST 16 (0-34) U/L ALT < 7 L (10-49) U/L Alkaline Phosphatase 60 (46-116) U/L Albumin 3.0 L D (3.4-4.8) gm/dL ABG Interpretation ABG results: 01/05/25 20:35 VBG pH 7.48 VBG pCO2 30 L VBG pO2 30 VBG Base Excess -1 Assessment and Plan Additional Assessment & Plan Additional Plan: # Abdominal distention with some dilatation of the small bowel loops on physical examination patient has a soft benign appearing abdomen with active bowel sounds no evidence of acute abdomen Advance diet as tolerated No invasive GI workup planned Thank you for the opportunity to participate in the care of this patient
[2025-01-07] MEDS: AMITRIPTYLINE HCL 25 MG TABLET 150 MG PO (21:33)
[2025-01-07] MEDS: ZOLPIDEM 5 MG TABLET PO (21:34)
[2025-01-07] MEDS: DONEPEZIL HCL 5 MG TABLET PO (21:34)
[2025-01-08] VITALS (16 sets, daily range): BP systolic 95–129; BP diastolic 45–67; PULSE 70–101; RESP 17–99; TEMP 36.5–37.2; O2SAT 93–100; BMI 18.9; BMI 11.0
[2025-01-08] MEDS: ALBUTEROL/IPRATROPIUM (Duoneb) RT SOL 3 ML NEBU INH ×4 (01:02→18:45)
--- NOTE | 2025-01-08 03:19 | PC.NURSE ---
patient refused pulse ox, pt was educated about the reason she had it on but still refused. Pt got agitated and started to remove pulse ox and zimmerman cath. Pt calmed down after rfp writer removed pulse ox. O2 sat has been within normal limits for pt.
[2025-01-08] MEDS: MIDODRINE 5 MG TABLET PO ×3 (05:17→21:32)
[2025-01-08 06:51] LABS: Basophils # (Auto) 0.1 Thou/mm3 (0.0-0.2); Basophils % (Auto) 1 % (0-2.5); Eosinophils # (Auto) 0.2 Thou/mm3 (0.0-0.5); Eosinophils % (Auto) 2 % (0-10); Hematocrit 24.1 % (36.0-46.0); Immature Granulocytes % (Auto) 1 % (0-0); Lymphocytes # (Auto) 0.9 Thou/mm3 (1.0-4.8); Lymphocytes % (Auto) 8 % (10-50); Mean Corpuscular HGB Conc 31.1 g/dl (31.0-37.0); Mean Corpuscular Hemoglobin 23.1 pg (25.0-35.0); Mean Corpuscular Volume 74 fL (80-100); Monocytes # (Auto) 0.9 Thou/mm3 (0.0-0.8); Monocytes % (Auto) 8 % (0-12); Neutrophils # (Auto) 8.7 Thou/mm3 (1.8-7.7); Neutrophils % (Auto) 80 % (37-80); Nucleated Red Blood Cell % 0 /100 WBC (0); Platelet Count 518 Thou/mm3 (140-440); RDW Standard Deviation 61.5 fL (36.4-46.3); Red Blood Count 3.24 Miln/mm3 (4.00-5.20); White Blood Count 10.8 Thou/mm3 (3.6-11.0)
[2025-01-08 07:12] LABS: Alanine Aminotransferase 8 U/L (10-49); Albumin, Serum 3.1 gm/dL (3.4-4.8); Albumin/Globulin Ratio 1.6 (1.2-2.2); Alkaline Phosphatase 65 U/L (46-116); Anion Gap 8 (7-16); Aspartate Amino Transferase 14 U/L (0-34); BUN/Creatinine Ratio 14 Ratio (12-20); Bilirubin,Total 0.2 mg/dL (0.3-1.2); Blood Urea Nitrogen 10 mg/dL (9-23); Calcium 7.7 mg/dL (8.3-10.6); Calcium (Corrected) 8.4 mg/dL (8.5-10.1); Carbon Dioxide 20.9 mMol/L (20.0-31.0); Chloride 110 mMol/L (98-107); Creatinine (Component) 0.7 mg/dL (0.6-1.3); Estimated Creatinine Clearance 45.9 mL/min (>60); Glucose 97 mg/dL (74-106); Magnesium 1.9 mg/dL (1.6-2.6); Osmolality,Calculated 276 (275-295); Potassium 4.1 mMol/L (3.4-5.1); Sodium 139 mMol/L (136-145); Total Protein 5.1 gm/dL (5.7-8.2); eGFR > 60 See Note
[2025-01-08 07:17] LABS: Hemoglobin 7.5 g/dL (12.0-16.0)
[2025-01-08] MEDS: AZITHROMYCIN 250 MG TABLET 500 MG PO (09:23)
[2025-01-08] MEDS: MUPIROCIN OINT 2% 15 GM TUBE TOP ×3 (09:23→21:36)
[2025-01-08] MEDS: CALCIUM CARBONATE 600 MG TABLET PO (09:24)
[2025-01-08] MEDS: NYSTATIN PWD 15 GM BTL TOP ×2 (09:24→21:36)
[2025-01-08] MEDS: cefTRIAXone/D5w 1gm IV premix 1 GM/50 ML BAG IV (09:24)
[2025-01-08] MEDS: PANTOPRAZOLE INJ 40 MG VIAL IVP (09:25)
[2025-01-08] MEDS: LORazepam 0.5 MG TABLET PO (11:28)
[2025-01-08] MEDS: ONDANSETRON INJ 2 MG/ML INJ 2 ML 4 MG IVP (11:29)
[2025-01-08] MEDS: IRON SUCROSE CPLX INJ 20 MG/ML VIAL 5 ML 200 MG IVP (11:36)
--- NOTE | 2025-01-08 12:12 | PD.RESPRO ---
Documentation for date of: 01/08/25 Subjective Subjective Interval history: No acute overnight events reported. Patient seen and examined at bedside this morning. Patient is currently saturating on room air denies any shortness of breath or cough. States that she does feel much better than when she came into the hospital however she is feeling weak and tired likely because she did not get enough sleep. Patient's MRSA nares was positive therefore will order mupirocin ointment, patient is no longer septic and leukocyte count has normalized and patient has remained afebrile no signs of worsening infection therefore we will will order patient IV iron sucrose due to iron deficiency anemia noticed on iron panel. Will also order physical therapy. Patient's hemoglobin is stable at 7.5 per GI recommendation no signs of active bleeding therefore we will continue to monitor no further intervention is needed at this time. Exam Vital Signs Temp Pulse Resp BP Pulse Ox O2 Del Method O2 Flow Rate 99.0 F 98 18 129/67 95 Room Air 1 01/08/25 11:30 01/08/25 11:30 01/08/25 11:30 01/08/25 11:30 01/08/25 11:30 01/08/25 11:30 01/06/25 15:49 Narrative Exam GENERAL: A&Ox3 . elderly female, Awake, Not in acute distress NEURO: no focal neurological deficits HEENT: Atraumatic, Normocephalic. mucous membranes moist. Eyes open, symmetrical, & clear HEART: Normal Heart Sounds LUNGS: Clear to auscultation with no wheezing or crackles. ABDOMEN: soft, non-distended, non-tender, bowel sounds heard, no guarding or rebound tenderness SKIN: No Rash or ecchymoses EXTREMITIES: No edema, tenderness, able to move all 4 extremities, pedal pulses palpated Objective Labs 01/08/25 06:06 01/08/25 06:06 Labs: Laboratory Results - last 24 hr 01/08/25 06:06 WBC 10.8 RBC 3.24 L Hgb 7.5 L Hct 24.1 L MCV 74 L MCH 23.1 L MCHC 31.1 RDW Std Deviation 61.5 H Plt Count 518 H Neut % (Auto) 80 Lymph % (Auto) 8 L Kent % (Auto) 8 Eos % (Auto) 2 Baso % (Auto) 1 Neut # (Auto) 8.7 H Lymph # (Auto) 0.9 L Kent # (Auto) 0.9 H Eos # (Auto) 0.2 Baso # (Auto) 0.1 Immature Gran # (Auto) 0.10 H Absolute Nucleated RBC 0.00 Immature Gran % 1 H Nucleated RBC % 0 Sodium 139 Potassium 4.1 Chloride 110 H Carbon Dioxide 20.9 Anion Gap 8 BUN 10 Creatinine 0.7 Estim Creat Clear Calc 45.9 L eGFR > 60 BUN/Creatinine Ratio 14 Glucose 97 Calculated Osmolality 276 Calcium 7.7 L Corrected Calcium 8.4 L Magnesium 1.9 Total Bilirubin 0.2 L AST 14 ALT 8 L Alkaline Phosphatase 65 Total Protein 5.1 L Albumin 3.1 L Globulin 2.0 L Albumin/Globulin Ratio 1.6 ABG Interpretation ABG results: 01/05/25 20:35 VBG pH 7.48 VBG pCO2 30 L VBG pO2 30 VBG Base Excess -1 Quality Measures Quality Measures sepsis Current suspected stage: ruled out Possible source: pulmonary Blood cultures ordered: yes Antibiotic ordered: Yes Advance care planning discussed with:: patient Assessment & Plan Assessment Current Active Medications: Generic Name Dose Route Start Last Admin Trade Name Freq PRN Reason Stop Dose Admin Acetaminophen 650 mg 01/06/25 10:44 Acetaminophen 325 Mg Tablet PO 02/04/25 19:54 Q6H PRN pain and Fever >100.4 Hydrocodone Bitart/Acetaminophen 1 tab 01/05/25 19:55 01/06/25 14:33 Hydrocodone/Apap 5/325 Tablet PO 01/10/25 19:54 1 tab Q4HR PRN Administration PAIN SCALE 4-10(Mod-Sev Albuterol/Ipratropium 3 ml 01/06/25 01:00 01/08/25 07:02 Albuterol/Ipratropium (Duoneb) Rt Deirdre 3 Ml Nebu INH 02/05/25 00:59 3 ml Q6HRRT SAMY Administration Amitriptyline HCl 150 mg 01/06/25 21:00 01/07/25 21:33 Amitriptyline Hcl 25 Mg Tablet PO 02/05/25 20:59 150 mg HS SAMY Administration Azithromycin 500 mg 01/06/25 09:00 01/08/25 09:23 Azithromycin 250 Mg Tablet PO 01/13/25 08:59 500 mg QDAY SAMY Administration Donepezil HCl 5 mg 01/06/25 21:00 01/07/25 21:34 Donepezil Hcl 5 Mg Tablet PO 02/05/25 20:59 5 mg HS SAMY Administration Heparin Sodium (Porcine) 5,000 unit 01/05/25 22:00 01/07/25 05:25 Heparin Sod Inj 5000 Unit/Ml Vial SC 01/19/25 21:59 5,000 unit Q8HR SAMY Administration Ceftriaxone Sodium/Dextrose 1 gm in 50 mls @ 100 mls/hr 01/06/25 09:00 01/08/25 09:24 Rocephin/D5w 1gm Iv Premix IV 01/13/25 08:59 100 mls/hr QDAY SAMY Administration Lorazepam 0.5 mg 01/08/25 11:30 01/08/25 11:28 Lorazepam 0.5 Mg Tablet PO 01/13/25 11:29 0.5 mg QDAY SAMY Administration Midodrine 5 mg 01/07/25 01:00 01/08/25 05:17 Midodrine 5 Mg Tablet PO 02/06/25 00:59 5 mg TID SAMY Administration Mupirocin 0 gm 01/08/25 08:00 01/08/25 09:23 Mupirocin Oint 2% 15 Gm Tube TOP 01/15/25 07:59 1 applicatio TID SAMY Administration Nystatin 0 gm 01/06/25 21:00 01/08/25 09:24 Nystatin Pwd 15 Gm Btl TOP 02/05/25 20:59 1 applicatio BID SAMY Administration Ondansetron HCl 4 mg 01/05/25 19:55 01/08/25 11:29 Ondansetron Inj 2 Mg/Ml Inj 2 Ml IVP 02/04/25 19:54 4 mg Q6H PRN Administration NAUSEA OR VOMITING Protocol Pantoprazole Sodium 40 mg 01/09/25 09:00 Pantoprazole Inj 40 Mg Vial IVP 02/08/25 08:59 QDAY SAMY Sennosides 1 tab 01/06/25 16:55 Senna/Docusate Sod 1 Tab Tablet PO 02/05/25 16:54 QDAY PRN CONSTIPATION Protocol Simethicone 80 mg 01/06/25 16:42 Simethicone 80 Mg Chew PO 02/05/25 16:41 QID PRN GAS Zolpidem Tartrate 5 mg 01/07/25 21:00 01/07/25 21:34 Zolpidem 5 Mg Tablet PO 02/06/25 20:59 5 mg HS SAMY Administration Plan Ms. Bray is a 84-year-old female with past medical history of COPD, hypertension, anxiety, dementia, and HFpEF was admitted to the hospital on 01/05/2025 for acute hypoxic respiratory failure likely secondary to community-acquired pneumonia. #Acute hypoxic respiratory failure 2/2 to #Community-acquired pneumonia #COPD exacerbation #Lactic acid elevation- resolved Patient came in with complaint of shortness of breath from [facility] as well as increased O2 requirements. Patient does have a history of COPD, there was no solution on exam Patient's chest x-ray and CT of chest/abdomen/pelvis showed pneumonia Patient's qSOFA and curb 65 are 2 and 3 respectively Patient is on 2 L O2 at baseline Plan: -Azithromycin and Rocephin (01/05/2025?) -DuoNebs every 6 hours -VBG WNL -Blood and urine cultures have no growth -MRSA nares positive- mupirocin ordered -Will continue to monitor #Microcytic anemia #Iron deficiency anemia -No signs of active bleeding noted - Hemoglobin 7.2, hematocrit 23.5, MCV 75 - Iron panel: Iron 6, TIBC 2 9, iron saturation 2%, and saturating iron binding 203, ferritin 66 Plan: - Will continue to monitor closely for any signs of bleeding - Repeat H&H shows hemoglobin 7.7 and hematocrit 24.2 - Type and screen is ordered - Will transfuse if hemoglobin drops below 7 -Ordered pantoprazole twice daily -IV iron sucrose ordered -GI consulted, appreciate recommendations #Abdominal distention- resolved Patient has some abdominal distention which on physical exam is nontender, but is tense likely in the setting of patient tensing abdominal muscles. Chest/abdomen/pelvis CT showed mild colonic and small bowel ileus and fluid distended small bowel loops Patient unaware when was the last time she had a bowel movement Plan: -Simethicone ordered fro PRN for gas -Bowel regimen PRN #Hx of hypertension #Hx of HFpEF (EF 55 to 60% on 2023) We will hold off on antihypertensive medications for now given that patient blood pressure is soft on admission. Did have 1 L bolus in the ED due to history of heart failure. -Echo done on 03/28/24: Stage I diastolic dysfunction. Estimated EF 55-60% -Will hold pt's home lasix due to sepsis -Pt is not in acute CHF exacerbation and is not fluid overload state #Hx of dementia #Hx of anxiety -Resumed home amitriptyline, donepezil, lorazepam, Ambien Disposition: Patient admitted to [facility] for AHRF 2/2 PNA . Diet: Cardiac GI prophylaxis: not indicated DVT prophylaxis: heparin sub cu Code: Full Assessment and plan discussed with attending physician Dr. Chey Wing (PGY-1)- Internal medicine resident
--- NOTE | 2025-01-08 14:12 | PD.ADDPROG ---
Addendum Progress Note Addendum Date of report being addended: 01/08/25 Narrative: Face to face evaluation was performed by me. I have personally seen and examined the patient. I discussed the assessment and plan with the entire medicine team. I reviewed available medical records, imaging studies, laboratory results. I agree with the above subjective data, objective findings, assessment and plan except as corrected by me or noted below Sepsis, present admission due to below without septic shock Community-acquired pneumonia right lower lobe bacterial Acute hypoxic respite failure due to above COPD with exacerbation Anxiety , - continue with antibiotics Monitor [facility] discharge planning More than > 30 minutes spent on the encounter
--- NOTE | 2025-01-08 15:04 | PC.SS ---
Rounding note: anticipate d/c tomorrow back to SNF.
--- NOTE | 2025-01-08 18:06 | PC.NURSE ---
pt agitated attempting to get out of bed. doctor notified. dr moraes at bedside communicating with patient. pt confused gc [id number]. pt alert to self. MD stated she will place orders for meds . meds given
[2025-01-08] MEDS: LORazepam 2 MG/ML VIAL 0.5 MG IVP (18:09)
--- NOTE | 2025-01-08 18:35 | PD.IMPROG ---
Documentation for date of: 01/08/25 Subjective Subjective Interval history: Downward trending hemoglobin hematocrit with iron saturation of 2% Patient has dramatically improved clinically and is saturating well on room air from a GI viewpoint there is no clear explanation for the unexplained iron deficiency anemia and the low hemoglobin hematocrit Since her clinical status has tremendously improved I would like to schedule the patient for an upper endoscopy tomorrow pending authorization from the family Exam Vital Signs Temp Pulse Resp BP Pulse Ox O2 Del Method O2 Flow Rate 98.4 F 92 18 117/60 93 L Room Air 1 01/08/25 16:05 01/08/25 16:05 01/08/25 16:05 01/08/25 16:05 01/08/25 16:05 01/08/25 16:05 01/06/25 15:49 Routine Respiratory Exam Comments: Scattered rhonchi Routine Abdominal Exam Comments: Soft nontender Objective Labs 01/08/25 06:06 01/08/25 06:06 Labs: Laboratory Results - last 24 hr 01/08/25 06:06 WBC 10.8 RBC 3.24 L Hgb 7.5 L Hct 24.1 L MCV 74 L MCH 23.1 L MCHC 31.1 RDW Std Deviation 61.5 H Plt Count 518 H Neut % (Auto) 80 Lymph % (Auto) 8 L Mccone % (Auto) 8 Eos % (Auto) 2 Baso % (Auto) 1 Neut # (Auto) 8.7 H Lymph # (Auto) 0.9 L [place]one # (Auto) 0.9 H Eos # (Auto) 0.2 Baso # (Auto) 0.1 Immature Gran # (Auto) 0.10 H Absolute Nucleated RBC 0.00 Immature Gran % 1 H Nucleated RBC % 0 Sodium 139 Potassium 4.1 Chloride 110 H Carbon Dioxide 20.9 Anion Gap 8 BUN 10 Creatinine 0.7 Estim Creat Clear Calc 45.9 L eGFR > 60 BUN/Creatinine Ratio 14 Glucose 97 Calculated Osmolality 276 Calcium 7.7 L Corrected Calcium 8.4 L Magnesium 1.9 Total Bilirubin 0.2 L AST 14 ALT 8 L Alkaline Phosphatase 65 Total Protein 5.1 L Albumin 3.1 L Globulin 2.0 L Albumin/Globulin Ratio 1.6 Impressions Impression: Posthemorrhagic anemia Unexplained iron deficiency anemia Plan Spoke with the patient she will come and see me as an outpatient for an upper endoscopy and colonoscopy ABG Interpretation ABG results: 01/05/25 20:35 VBG pH 7.48 VBG pCO2 30 L VBG pO2 30 VBG Base Excess -1 Assessment & Plan A&P Narrative # Abdominal distention with some dilatation of the small bowel loops on physical examination patient has a soft benign appearing abdomen with active bowel sounds no evidence of acute abdomen Advance diet as tolerated No invasive GI workup planned Thank you for the opportunity to participate in the care of this patient Time Spent With Patient Time: Total time spent is greater than 50% in coordination of care (as documented) at patient's floor/unit and/or counseling patient:
[2025-01-08] MEDS: AMITRIPTYLINE HCL 25 MG TABLET 150 MG PO (21:32)
[2025-01-08] MEDS: DONEPEZIL HCL 5 MG TABLET PO (21:32)
[2025-01-08] MEDS: ZOLPIDEM 5 MG TABLET PO (21:34)
[2025-01-09] VITALS (9 sets, daily range): BP systolic 93–118; BP diastolic 48–74; PULSE 70–89; RESP 18–96; TEMP 36.1–36.6; O2SAT 91–96
[2025-01-09 05:10] LABS: Basophils # (Auto) 0.1 Thou/mm3 (0.0-0.2); Basophils % (Auto) 1 % (0-2.5); Eosinophils # (Auto) 0.2 Thou/mm3 (0.0-0.5); Eosinophils % (Auto) 2 % (0-10); Hematocrit 23.7 % (36.0-46.0); Immature Granulocytes % (Auto) 1 % (0-0); Immature Granulocytes Auto 0.09 Thou/mm3 (0.00-0.00); Lymphocytes # (Auto) 0.8 Thou/mm3 (1.0-4.8); Lymphocytes % (Auto) 9 % (10-50); Mean Corpuscular HGB Conc 30.4 g/dl (31.0-37.0); Mean Corpuscular Hemoglobin 22.8 pg (25.0-35.0); Mean Corpuscular Volume 75 fL (80-100); Monocytes # (Auto) 0.9 Thou/mm3 (0.0-0.8); Monocytes % (Auto) 10 % (0-12); Neutrophils % (Auto) 77 % (37-80); Nucleated Red Blood Cell % 0 /100 WBC (0); Platelet Count 532 Thou/mm3 (140-440); RDW Standard Deviation 61.2 fL (36.4-46.3); Red Blood Count 3.16 Miln/mm3 (4.00-5.20); White Blood Count 9.1 Thou/mm3 (3.6-11.0)
[2025-01-09 05:17] LABS: Hemoglobin 7.2 g/dL (12.0-16.0)
[2025-01-09] MEDS: MIDODRINE 5 MG TABLET PO ×2 (05:19→14:54)
[2025-01-09 06:01] LABS: Alanine Aminotransferase < 7 U/L (10-49); Albumin, Serum 2.9 gm/dL (3.4-4.8); Albumin/Globulin Ratio 1.5 (1.2-2.2); Alkaline Phosphatase 59 U/L (46-116); Anion Gap 8 (7-16); Aspartate Amino Transferase 14 U/L (0-34); BUN/Creatinine Ratio 10 Ratio (12-20); Bilirubin,Total < 0.2 mg/dL (0.3-1.2); Blood Urea Nitrogen 7 mg/dL (9-23); Calcium 7.8 mg/dL (8.3-10.6); Calcium (Corrected) 8.7 mg/dL (8.5-10.1); Carbon Dioxide 21.2 mMol/L (20.0-31.0); Chloride 110 mMol/L (98-107); Creatinine (Component) 0.7 mg/dL (0.6-1.3); Estimated Creatinine Clearance 45.9 mL/min (>60); Glucose 83 mg/dL (74-106); Magnesium 1.6 mg/dL (1.6-2.6); Osmolality,Calculated 274 (275-295); Phosphorous 2.9 mg/dL (2.4-5.1); Potassium 4.1 mMol/L (3.4-5.1); Sodium 139 mMol/L (136-145); Total Protein 4.9 gm/dL (5.7-8.2); eGFR > 60 See Note
[2025-01-09] MEDS: LORazepam 0.5 MG TABLET PO (08:08)
[2025-01-09] MEDS: PANTOPRAZOLE INJ 40 MG VIAL IVP (08:08)
[2025-01-09] MEDS: AZITHROMYCIN 250 MG TABLET 500 MG PO (08:08)
[2025-01-09] MEDS: NYSTATIN PWD 15 GM BTL TOP (08:09)
[2025-01-09] MEDS: cefTRIAXone/D5w 1gm IV premix 1 GM/50 ML BAG IV (08:09)
--- NOTE | 2025-01-09 09:14 | PC.SS ---
Addendum entered by MERARI Méndez 01/09/25 13:38: Per bedside Homero, patient is ready to d/c back to [facility]. Patient does not posses coverage for transportation and [facility] transport services was arranged. ETA is 5pm. Bed side RNKevin and SNF staff Varsha were updated on transport time. Addendum entered by MERARI Méndez 01/09/25 12:12: SS update: Varsha at [facility] informs the patient can return to facility today. Patient's daughter Ankita is aware and agreeable with the d/c. Per bedside Homero, patient is pending a void before discharge. Addendum entered by MERARI Méndez 01/09/25 11:12: SS update: spoke with Varsha at [facility] to notify we have d/c orders for patient to return to facility. Per Varsha, she will call back if patient is ok to return today. Original Note: SS follow up: sent updated clinicals to [facility] via [facility].
[2025-01-09] MEDS: IRON SUCROSE CPLX INJ 20 MG/ML VIAL 5 ML 200 MG IVP (10:24)
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
[2025-01-09] MEDS: MUPIROCIN OINT 2% 15 GM TUBE TOP (14:55)
--- NOTE | 2025-01-09 22:36 | PD.IMPROG ---
Documentation for date of: 01/09/25 Subjective Subjective Interval history: Late entry for the note Case discussed with internal medicine team I will follow the patient as an outpatient and patient is aware of it for invasive GI workup Exam Vital Signs Temp Pulse Resp BP Pulse Ox O2 Del Method O2 Flow Rate 96.9 F 86 18 93/53 L 96 Room Air 1 01/09/25 12:00 01/09/25 14:54 01/09/25 14:23 01/09/25 14:54 01/09/25 14:23 01/09/25 12:00 01/06/25 15:49 Objective Labs 01/09/25 04:57 01/09/25 04:57 Labs: Laboratory Results - last 24 hr 01/09/25 04:57 WBC 9.1 RBC 3.16 L Hgb 7.2 L Hct 23.7 L MCV 75 L MCH 22.8 L MCHC 30.4 L RDW Std Deviation 61.2 H Plt Count 532 H Neut % (Auto) 77 Lymph % (Auto) 9 L [place] % (Auto) 10 Eos % (Auto) 2 Baso % (Auto) 1 Neut # (Auto) 7.0 Lymph # (Auto) 0.8 L [place] # (Auto) 0.9 H Eos # (Auto) 0.2 Baso # (Auto) 0.1 Immature Gran # (Auto) 0.09 H Absolute Nucleated RBC 0.00 Immature Gran % 1 H Nucleated RBC % 0 Sodium 139 Potassium 4.1 Chloride 110 H Carbon Dioxide 21.2 Anion Gap 8 BUN 7 L Creatinine 0.7 Estim Creat Clear Calc 45.9 L eGFR > 60 BUN/Creatinine Ratio 10 L Glucose 83 Calculated Osmolality 274 L Calcium 7.8 L Corrected Calcium 8.7 Phosphorus 2.9 Magnesium 1.6 Total Bilirubin < 0.2 L AST 14 ALT < 7 L Alkaline Phosphatase 59 Total Protein 4.9 L Albumin 2.9 L Globulin 2.0 L Albumin/Globulin Ratio 1.5 Impressions Impression: Pain abdomen Resolved ileus Anemia Outpatient follow-up ABG Interpretation ABG results: 01/05/25 20:35 VBG pH 7.48 VBG pCO2 30 L VBG pO2 30 VBG Base Excess -1 Assessment & Plan A&P Narrative # Abdominal distention with some dilatation of the small bowel loops on physical examination patient has a soft benign appearing abdomen with active bowel sounds no evidence of acute abdomen Advance diet as tolerated No invasive GI workup planned Thank you for the opportunity to participate in the care of this patient Time Spent With Patient Time: Total time spent is greater than 50% in coordination of care (as documented) at patient's floor/unit and/or counseling patient:
== END 2025-01-09 15:40 | disposition skilled nursing facility (03) | DRG 871 ==
LOC: SERX 18:17 → SERHOLD 20:06 → S3NX 21:49
PROVIDERS: Emergency Medicine; Student in an Organized Health Care Education/Training Program; Admitting Provider Student in an Organized Health Care Education/Training Program; Emergency Provider Emergency Medicine; Visit Provider Internal Medicine
DX: A41.9 Sepsis, unspecified organism (principal); J18.9 Pneumonia, unspecified organism; J96.01 Acute respiratory failure with hypoxia; J44.0 Chronic obstructive pulmonary disease with (acute) lower respiratory infection; I50.32 Chronic diastolic (congestive) heart failure; K56.7 Ileus, unspecified; J44.1 Chronic obstructive pulmonary disease with (acute) exacerbation; E87.20 Acidosis, unspecified; R65.20 Severe sepsis without septic shock; Z87.891 Personal history of nicotine dependence; F03.90 Unspecified dementia, unspecified severity, without behavioral disturbance, psychotic disturbance, mood disturbance, and anxiety; K21.9 Gastro-esophageal reflux disease without esophagitis; I11.0 Hypertensive heart disease with heart failure; F41.9 Anxiety disorder, unspecified; Z22.322 Carrier or suspected carrier of Methicillin resistant Staphylococcus aureus; Z88.0 Allergy status to penicillin; Z88.1 Allergy status to other antibiotic agents
CPT/HCPCS: 36415; 71045; 71260; 74177; 76705; 80053; 81001; 82728; 82803; 83540; 83550; 83605; 83690; 83735; 84100; 84145; 84484; 85014; 85018; 85025; 85610; 86850; 86900; 86901; 87040; 87081; 87086; 87502; 87811; 89220; 93005; 93225; 94640; 94664; 96361; 96365; 97161; 99291; A4649; A9270; J0696; J1644; J1756; J2060; J2405; J2470; J7030; J7999; Q9967

== ENCOUNTER 2025-03-15 14:28 | Emergency (ER) | payer MEDICARE, OTHER, SELFPAY ==
[2025-03-15 14:32] VITALS: BP 156/96; PULSE 87; RESP 18; TEMP 36.8; O2SAT 95; BMI 21.1
--- NOTE | 2025-03-15 14:48 | XR_ITS ---
Examination: Hand, right 3 views Technique: Hand AP, oblique, lateral 3 views Date and time of exam: March 15, 2025 1803 hours INDICATIONS: Patient fell today with injury to the hand, hand pain. FINDINGS: Severe osteopenia No acute fracture No cortical bone destruction IMPRESSION: No acute fracture Given the severe osteopenia, if hand pain persists, recommend 1-2 day follow-up films
--- NOTE | 2025-03-15 14:48 | XR_ITS ---
Examination: Wrist, right 3 views Technique: Wrist AP, oblique, lateral 3 views Date and time of exam: March 15, 2025 1503 hours INDICATIONS: Patient fell today with injury to the wrist, wrist pain. FINDINGS: Severe osteopenia small bone density, 2 mm, dorsal to the radius on the lateral view which appears old, clinical correlation advised IMPRESSION: Small old appearing bone density dorsal to the radius on the lateral view, clinical correlation advised
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
[2025-03-15] MEDS: ACETAMINOPHEN 325 MG TABLET 650 MG PO (15:04)
[2025-03-15 16:00] VITALS: BP 109/50; PULSE 77; RESP 18; O2SAT 96
[2025-03-15 16:29] LABS: Collection Type, Urine Voided
[2025-03-15 16:35] LABS: Bacteria,Urine Rare; Bilirubin,Urine Negative (Negative); Blood,Urine Negative (Negative); Clarity,Urine Clear (Clear/Hazy); Color,Urine Lt-Yellow (Lt Yel-Yel); Culture Indicated,Urine Not Indicated; Glucose, Urine Negative (Negative); Hyaline Casts,Urine < 1 /hpf (0-1); Ketones,Urine Negative (Negative); Leukocyte Esterase,Urine Positive (Negative); Nitrite,Urine Negative (Negative); PH,Urine 6.0 (5.0-7.0); Protein,Urine Negative (Neg - Trace); RBC,Urine 1 /hpf (0-3); Specific Gravity,Urine 1.007 (1.001-1.035); Squamous Epithelial Cell,Urine < 1 /hpf (0-5); Urobilinogen,Urine Negative mg/dL (0.0-1.0); WBC,Urine 3 /hpf (0-5)
--- NOTE | 2025-03-15 17:14 | PC.CC ---
Iram GASCA was consulted stem processing machine operator [place] regarding transportation for patient back to [facility]. PRINTED CIRCUIT PHOTOGRAPHER arranged wheelchair transportation for the patient back [facility].
[2025-03-15 17:58] VITALS: BP 135/78; PULSE 80; RESP 18; TEMP 36.3; O2SAT 99
== END 2025-03-15 19:13 | disposition home or self-care (01) ==
PROVIDERS: Physician Assistant Medical; Emergency Provider Emergency Medicine
DX: M79.641 Pain in right hand (principal); M25.531 Pain in right wrist; F03.90 Unspecified dementia, unspecified severity, without behavioral disturbance, psychotic disturbance, mood disturbance, and anxiety; I10 Essential (primary) hypertension
CPT/HCPCS: 73110; 73130; 81001; 99283; A9270

== ENCOUNTER 2025-03-17 18:32 | Emergency (ER) | payer MEDICARE, OTHER, SELFPAY ==
[2025-03-17 18:46] VITALS: BP 102/49; PULSE 68; RESP 18; TEMP 36.8; O2SAT 99
[2025-03-17 18:53] VITALS: PULSE 74; RESP 20; O2SAT 96; BMI 23.9
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
--- NOTE | 2025-03-17 20:24 | PC.NURSE ---
pt trying to get put of bed redirected to get in bed repostion pt was compliant
[2025-03-17 21:08] LABS: Collection Type, Urine Voided
[2025-03-17 21:18] LABS: Bilirubin,Urine Negative (Negative); Blood,Urine Negative (Negative); Clarity,Urine Clear (Clear/Hazy); Color,Urine Lt-Yellow (Lt Yel-Yel); Culture Indicated,Urine Not Indicated; Glucose, Urine Negative (Negative); Hyaline Casts,Urine 1 /hpf (0-1); Ketones,Urine Negative (Negative); Leukocyte Esterase,Urine Negative (Negative); Nitrite,Urine Negative (Negative); PH,Urine 5.0 (5.0-7.0); Protein,Urine Negative (Neg - Trace); RBC,Urine < 1 /hpf (0-3); Specific Gravity,Urine 1.012 (1.001-1.035); Squamous Epithelial Cell,Urine < 1 /hpf (0-5); Urobilinogen,Urine Negative mg/dL (0.0-1.0); WBC,Urine 1 /hpf (0-5)
[2025-03-17 21:50] VITALS: BP 99/66; PULSE 67; RESP 16; TEMP 36.8; O2SAT 98
[2025-03-17] MEDS: DIAZEPAM 5 MG TABLET PO (22:21)
== END 2025-03-17 22:31 | disposition home or self-care (01) ==
PROVIDERS: Physician Assistant Medical; Emergency Provider Emergency Medicine; PCP Family Medicine
DX: S61.412A Laceration without foreign body of left hand, initial encounter (principal); X58.XXXA Exposure to other specified factors, initial encounter; F03.90 Unspecified dementia, unspecified severity, without behavioral disturbance, psychotic disturbance, mood disturbance, and anxiety
CPT/HCPCS: 81001; 99282; A9270

== ENCOUNTER 2025-03-19 20:25 | Emergency (ER) | payer MEDICARE, OTHER, SELFPAY ==
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
[2025-03-19 20:42] VITALS: PULSE 94; RESP 18; O2SAT 98; BMI 21.4
[2025-03-19 20:43] VITALS: BP 152/73; PULSE 80; RESP 18; TEMP 36.3; O2SAT 97
[2025-03-19] MEDS: HALOPERIDOL LACT INJ 5 MG/ML VIAL IM (20:56)
[2025-03-19] MEDS: DIAZEPAM INJ 5 MG/ML VIAL 2 ML IM (21:38)
[2025-03-20] MEDS: DIAZEPAM 5 MG TABLET PO (01:58)
[2025-03-20 02:00] VITALS: BP 97/70; PULSE 70; RESP 16; TEMP 36.9; O2SAT 100
--- NOTE | 2025-03-20 04:00 | PC.NURSE ---
PT KEEP COMING OUT OF ROOM BEEN REDIRECTED TO ROOM PT SLAPPED AT ME CALLED STAFF MULTIPLE NAMES WANTING TO KNOW OF IS AND WHERE HE IS
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
[2025-03-20] MEDS: HALOPERIDOL LACT INJ 5 MG/ML VIAL 10 MG IM (04:43)
[2025-03-20 04:47] LABS: Basophils # (Auto) 0.1 Thou/mm3 (0.0-0.2); Basophils % (Auto) 1 % (0-2.5); Eosinophils # (Auto) 0.6 Thou/mm3 (0.0-0.5); Eosinophils % (Auto) 7 % (0-10); Hematocrit 30.4 % (36.0-46.0); Hemoglobin 9.6 g/dL (12.0-16.0); Immature Granulocytes Auto 0.03 Thou/mm3 (0.00-0.00); Lymphocytes # (Auto) 1.2 Thou/mm3 (1.0-4.8); Lymphocytes % (Auto) 16 % (10-50); Mean Corpuscular HGB Conc 31.6 g/dl (31.0-37.0); Mean Corpuscular Hemoglobin 25.7 pg (25.0-35.0); Mean Corpuscular Volume 81 fL (80-100); Monocytes # (Auto) 0.9 Thou/mm3 (0.0-0.8); Monocytes % (Auto) 12 % (0-12); Neutrophils # (Auto) 5.2 Thou/mm3 (1.8-7.7); Neutrophils % (Auto) 65 % (37-80); Nucleated Red Blood Cell # 0.00 Thou/mm3 (0.00-0.00); Nucleated Red Blood Cell % 0 /100 WBC (0); Platelet Count 291 Thou/mm3 (140-440); RDW Standard Deviation 53.1 fL (36.4-46.3); Red Blood Count 3.74 Miln/mm3 (4.00-5.20); White Blood Count 8.0 Thou/mm3 (3.6-11.0)
--- NOTE | 2025-03-20 04:47 | PC.NURSE ---
PT IS BEING COMBATIVE UNABLE TO VITAL
--- NOTE | 2025-03-20 04:47 | PC.NURSE ---
PER DR.AGOSTINO FORBES TO HOLD OFF ON UA AND IV FOR FLUIDS
[2025-03-20 05:20] LABS: Alanine Aminotransferase 11 U/L (10-49); Albumin, Serum 3.7 gm/dL (3.4-4.8); Albumin/Globulin Ratio 1.7 (1.2-2.2); Alkaline Phosphatase 97 U/L (46-116); Anion Gap 9 (7-16); Aspartate Amino Transferase 23 U/L (0-34); BUN/Creatinine Ratio 32 Ratio (12-20); Bilirubin,Total 0.2 mg/dL (0.3-1.2); Blood Urea Nitrogen 38 mg/dL (9-23); Calcium 9.3 mg/dL (8.3-10.6); Calcium (Corrected) 9.5 mg/dL (8.5-10.1); Carbon Dioxide 21.8 mMol/L (20.0-31.0); Chloride 112 mMol/L (98-107); Creatinine (Component) 1.2 mg/dL (0.6-1.3); Estimated Creatinine Clearance 24.2 mL/min (>60); Globulin 2.2 gm/dL (2.3-3.5); Glucose 77 mg/dL (74-106); Osmolality,Calculated 292 (275-295); Potassium 4.2 mMol/L (3.4-5.1); Sodium 143 mMol/L (136-145); Total Protein 5.9 gm/dL (5.7-8.2); eGFR 44 See Note
[2025-03-20 06:53] VITALS: BP 93/53; PULSE 75; RESP 16; TEMP 36.9; O2SAT 100
--- NOTE | 2025-03-20 07:23 | PC.NURSE ---
[facility] CONTACTED, INFORMED THAT PT IS READY TO BE PICKED UP. STATES THEY DON'T HAVE A TRANSPORT VAN SO THE PTS USUALLY TAKE AN AMBULANCE HOME. INFORMED THAT INSURANCE WILL NOT COVER AMBULANCE RIDES HOME IF PT IS ABLE TO SIT AND AMBULATE. STATES THEY WILL SPEAK WITH THEIR STREET AND BUILDING DECORATOR
--- NOTE | 2025-03-20 09:28 | PC.SS ---
Addendum entered by MERARI Rodriguez 03/20/25 09:44: FACTORY FOCUS TECHNICIAN provided Varsha from [facility] with ETA. Original Note: FACTORY FOCUS TECHNICIAN placed phone call to [facility] to confirm patient can return to facility. Varsha from [facility] stated patient is good to return. FACTORY FOCUS TECHNICIAN scheduled transportation with [facility] ETA is 12:10. FACTORY FOCUS TECHNICIAN printed out SNF packet and left it with patient chart.
--- NOTE | 2025-03-20 10:45 | PC.NURSE ---
PATIENT MOVED TO BED 14 WHILE WE AWAIT FOR TRANSPORT BACK TO FACILITY
--- NOTE | 2025-03-20 12:28 | PC.NURSE ---
ATTEMPTED TO CALL FACILITY TO GIVE REPORT. NO ANSWER. MESSAGE LEFT AT THIS TIME
== END 2025-03-20 12:30 | disposition skilled nursing facility (03) ==
PROVIDERS: Emergency Provider Emergency Medicine; PCP Family Medicine
DX: F03.911 Unspecified dementia, unspecified severity, with agitation (principal)
CPT/HCPCS: 36415; 80053; 81001; 85025; 96372; 99283; J1200; J1630; J3360; A9270

== ENCOUNTER 2025-03-20 16:44 | Emergency (ER) | payer MEDICARE, OTHER, SELFPAY ==
[2025-03-20 17:13] VITALS: BP 186/63; PULSE 93; RESP 18; TEMP 36.6; O2SAT 95
[2025-03-20 17:20] VITALS: PULSE 85; RESP 16; O2SAT 94
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
[2025-03-20] MEDS: HALOPERIDOL LACT INJ 5 MG/ML VIAL 2 MG IM (18:01)
[2025-03-20] MEDS: OLANZapine INJ 10 MG, Sterile Water 2.1 ML IM (18:50)
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
--- NOTE | 2025-03-20 23:15 | PC.NURSE ---
2315 REPORT GIVEN TO ASH AT [facility] AT THIS TIME.
== END 2025-03-20 23:18 | disposition home or self-care (01) ==
PROVIDERS: Emergency Provider Emergency Medicine; PCP Family Medicine
DX: Z00.8 Encounter for other general examination (principal); F03.911 Unspecified dementia, unspecified severity, with agitation; M79.604 Pain in right leg
CPT/HCPCS: 87070; 87205; 89051; 96372; 99283; A4216; J1630; J2358; A9270; J2359

== ENCOUNTER 2025-04-03 03:28 | Emergency (ER) | payer MEDICARE, OTHER, SELFPAY ==
[2025-04-03] VITALS (7 sets, daily range): BP systolic 145–192; BP diastolic 71–133; PULSE 51–96; RESP 15–18; TEMP 36.9–37.2; O2SAT 95–100
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
--- NOTE | 2025-04-03 03:35 | XR_ITS ---
Examination: AP chest single view Technique one AP portable semiupright chest single view Date and time: April 01, 2025, 0403 hrs., Comparison January 05, 2025 Indications: Shortness of breath today. Findings: Bilateral pneumonia, severe and diffuse in the right lung Mild enlargement cardiac contour Prominent osteopenia. Reverse right shoulder arthroplasty Impression: Extensive severe right lung pneumonia, consider aspiration pneumonia.
[2025-04-03 04:03] LABS: Collection Type, Urine Clean Catch; Squamous Epithelial Cell,Urine 0 /hpf (0-5)
[2025-04-03] MEDS: DIAZEPAM INJ 5 MG/ML VIAL 2 ML 10 MG IM (04:04)
[2025-04-03] MEDS: HALOPERIDOL LACT INJ 5 MG/ML VIAL IM (04:04)
--- NOTE | 2025-04-03 04:04 | EDNOTE_ITS ---
Altered Mental Status RME/HPI General Chief Complaint: Altered Mental Status Stated Complaint: BEHAVIORAL PROBLEMS Time Seen by Provider: 04/03/25 03:46 Arrival date/time: 04/03/25 03:28 RME / HPI RME / HPI narrative: See [facility] for Dr. Church's HPI documentation. Related Data Home Medications ?Medication ?Instructions ?Recorded ?Confirmed amitriptyline 50 mg tablet 150 mg PO HS 06/24/2101/06 zolpidem 10 mg tablet 10 mg PO HS 06/24/21 5 Donezepil HCl 1 tab PO HS 01/06/25 5 Lorazepam 1 tab PO QDAY 01/06/2501/06 Vitamin C 500 mg tablet 1 tab PO BID 01/06/25 cimetidine 300 mg tablet 300 mg PO BID 01/06/2501/06 furosemide 40 mg tablet 40 mg PO QDAY 01/06/2501/06 meloxicam 15 mg tablet 15 mg PO QDAY 01/06/2501/06 potassium chloride 10 mEq 10 meq PO BID 01/06/2501/06 capsule,extended release propranolol 20 mg tablet 20 mg PO BID 01/06/25 Previous Rx's ?Medication ?Instructions ?Recorded risperidone 1 mg tablet (Risperdal) 1 mg PO Q12H #30 t abs 03/20/25 Allergies Allergy/AdvReac Type Severity Reaction Status Date / Time clindamycin Allergy Intermediate Rash Verified 03/17/25 19:02 Penicillins Allergy Intermediate Rash Verified 03/17/25 19:02 Review of Systems Review of Systems ROS Unobtainable: other (unobtainable due to the patient's history of dementia) ED Exam Narrative Physical exam: See [facility] for Dr. Church's physical exam documentation. Course Quality Measures none Orders Category Date Time Status 2 HR Behavioral Restraints Q15M Care 04/03/25 04:31 Active Bedside COVID-19 Antigen Test NOW Care 04/03/25 03:34 Active Bedside Influenza A&B Antigen Test NOW Care 04/03/25 03:34 Active EKG (ED ONLY) *Do not use* NOW Care 04/03/25 03:35 Completed Saline [Insert IV] NOW Care 04/03/25 03:34 Active Straight [In and Out Catheter] X1 Care 04/03/25 03:[address] chest abdomen pelvis wo Stat Exams 04/03/25 05:[address] head/brain wo con Stat Exams 04/03/25 05:17 Ordered EKG (ED Only) Stat Exams 04/03/25 03:35 Ordered XR chest 1V portable Stat Exams 04/03/25 03:35 Taken BNP [B-Type Natriuretic Peptide] Stat Lab 04/03/25 04:34 Completed Beta Hydroxybutyrate Stat Lab 04/03/25 04:34 Completed Bilirubin,Direct Stat Lab 04/03/25 04:34 Completed Blood Culture (Lab) Stat Lab 04/03/25 04:34 Received CBC Stat Lab 04/03/25 04:34 Completed CMP [Comprehensive Metabolic Panel] Stat Lab 04/03/25 04:34 Completed CRP [C-Reactive Protein] Stat Lab 04/03/25 04:34 Completed D-Dimer Stat Lab 04/03/25 04:34 Completed ESR [Sed Rate (ESR)] Stat Lab 04/03/25 04:34 Completed Lactate (Lactic Acid) Stat Lab 04/03/25 04:34 Completed Lipase Stat Lab 04/03/25 04:34 Completed Magnesium Stat Lab 04/03/25 04:34 Completed Procalcitonin Stat Lab 04/03/25 04:34 Completed TSH [Thyroid Stimulating Hormone] Stat Lab 04/03/25 04:34 Completed Troponin I Stat Lab 04/03/25 04:34 Completed UA, C/S IF [Urinalysis, C/S if Indicated] Stat Lab 04/03/25 03:51 Completed VBG [Venous Blood Gas] Stat Lab 04/03/25 04:34 Completed Diazepam Inj [Valium Inj] Med 04/03/25 03:50 Discontinued 10 mg IM X1 ONE Diazepam Inj [Valium Inj] Med 04/03/25 03:35 Discontinued 5 mg IVP X1 ONE Haloperidol Lactate [Haldol Inj] Med 04/03/25 03:50 Discontinued 5 mg IM X1 ONE KCL 10% Liq UDC 15 ML Med 04/03/25 05:14 Discontinued 40 meq PO X1 ONE LORazepam [Ativan] Med 04/03/25 05:14 Discontinued 2 mg PO X1 ONE Ondansetron Inj [Zofran Inj] Med 04/03/25 03:35 Discontinued 4 mg IVP X1 ONE Sodium Chloride 0.9% 1000 ml [Ns] 1,000 ml Med 04/03/25 03:35 Discontinued IV 999 mls/hr cloNIDine HCL [Catapres] Med 04/03/25 05:03 Discontinued 0.2 mg PO X1 ONE Vital Signs Vital signs: Vital Signs Pulse Rate 64 04/03/25 03:34 Respiratory Rate 18 04/03/25 03:34 Blood Pressure 178/71 H 04/03/25 03:34 Pulse Oximetry (%) 96 04/03/25 03:34 Oxygen Delivery Method Room Air 04/03/25 03:34 Altered Mental Status MDM Narrative MDM Narrative:: This section includes all my notes and documentations, including HPI, PE, and ED course. Matty Church MD HPI: 84yo female BIBA from long term with verbal and physical aggressive and violent behavior. Can't obtain any accurate history from the patient due to severe dementia. ROS: Can't obtain from the patient due to severe dementia. Physical Exam: General: Alert. Verbally aggressive and violent. Does not appear to be in any pain. High BP noted. Eyes: Conjunctivae and lids clear. PERRL. EOMI. ENT: No nasal congestion. Neck: Supple. No carotid bruit. No JVD. Heart: RRR. Lungs: No respiratory distress. Decreased air movement. Difficult to assess rhonchi or wheezing or rales. Suboptimal exam due to poor effort. Abdomen: Soft and nontender. Skin: Warm and dry. Neuro: Alert. Cranial nerves II to XII grossly normal. No peripheral motor deficits. I reviewed EMS and long term notes. Prior to diagnostic tests, she was given diazepam 10 mg IM and Haldol 5 mg IM. No significant improvement noted. I then ordered IV fluid, Zofran 4 mg IV, oral KCl 40 mEq (for K 3.1), oral clonidine 0.2 mg, oral Ativan 2 mg, and diagnostic tests. At 6 AM on 04/03/2025, the care of the patient was transferred to Dr. Rice. Matty Church MD Patient data External records reviewed:: [facility] previous records (Per chart review, patient was seen here on 03/20/25 for aggressive behavior.) and EMS form Clinical information provided by:: EMS Social determinants that could affect healthcare access:: housing (SNF resident) Patient has the following chronic illnesses:: dementia How is presenting disease/condition affected by chronic disease/condition?: caused by Evaluation data The following diagnostics were reviewed and interpreted by me:: other (specify) (Diagnostic tests are pending.) Lab and/or radiology exams considered but not ordered:: none Interpretation Summary: Complete diagnostic test results are pending. Medications / Prescriptions Medications or Prescriptions considered but not ordered:: none Medication administrations:: Medication Administration History Discontinued Medications Clonidine (Clonidine Hcl 0.1 Mg Tablet) 0.2 mg PO X1 ONE Stop: 04/03/25 05:04 Diazepam (Diazepam Inj 5 Mg/Ml Vial 2 Ml) 5 mg IVP X1 ONE Stop: 04/03/25 03:36 Last Admin: 04/03/25 04:04 Dose: Not Given Documented By: STACIE Non-Admin Reason: Cancelled by Provider Diazepam (Diazepam Inj 5 Mg/Ml Vial 2 Ml) 10 mg IM X1 ONE Stop: 04/03/25 03:51 Last Admin: 04/03/25 04:04 Dose: 10 mg Documented By: LAURO Haloperidol Lactate (Haloperidol Lact Inj 5 Mg/Ml Vial) 5 mg IM X1 ONE Stop: 04/03/25 03:51 Last Admin: 04/03/25 04:04 Dose: 5 mg Documented By: LAURO Sodium Chloride (Ns) 1,000 mls @ 999 mls/hr IV .Q1H1M ONE Stop: 04/03/25 04:35 Last Admin: 04/03/25 04:17 Dose: 999 mls/hr Documented By: LAURO Lorazepam (Lorazepam 0.5 Mg Tablet) 2 mg PO X1 ONE Stop: 04/03/25 05:15 Ondansetron HCl (Ondansetron Inj 2 Mg/Ml Inj 2 Ml) 4 mg IVP X1 ONE; Protocol Stop: 04/03/25 03:36 Last Admin: 04/03/25 04:17 Dose: 4 mg Documented By: LAURO Potassium Chloride (Potassium Chloride 10% 20 Meq/15 Ml Udc) 40 meq PO X1 ONE Stop: 04/03/25 05:15 Prior to diagnostic tests, she was given diazepam 10 mg IM and Haldol 5 mg IM. No significant improvement noted. I then ordered IV fluid, Zofran 4 mg IV, oral KCl 40 mEq (for K 3.1), oral clonidine 0.2 mg, oral Ativan 2 mg, and diagnostic tests. Consultations Consultation(s) initiated? (list below): No Diagnosis Differential diagnosis altered mental status: alcoholic intoxication, altered mental status, delirium, dementia, hypoglycemia, hyponatremia, subarachnoid hemorrhage and sepsis Most likely diagnosis given after review of the tests above:: Complete diagnostic test results are pending. Admission Indicated Admission indicated?: not indicated Explain why admission is indicated or not indicated:: Complete diagnostic test results are pending. Admission Request Was there a request for admission?: No Disposition Plan Disposition Plan: other (specify) (Signed out to Dr. Rice at 6 AM.) Discharge Plan Prescriptions/Referrals Prescriptions/Med Rec: No Action amitriptyline 50 mg tablet 150 mg PO HS Patient Comments: TAKE THREE TABLET BY MOUTH EVERY DAY AT BED TIME zolpidem 10 mg tablet 10 mg PO HS Patient Comments: TAKE ONE TABLET BY MOUTH EVERY DAY AT BED TIME propranolol 20 mg tablet 20 mg PO BID Patient Comments: TAKE ONE TABLET BY MOUTH TWICE DAILY cimetidine 300 mg tablet 300 mg PO BID Patient Comments: TAKE ONE TABLET BY MOUTH TWICE DAILY FOR THE STOMACH meloxicam 15 mg tablet 15 mg PO QDAY Patient Comments: TAKE ONE TABLET BY MOUTH EVERY DAY WITH FOOD FOR ARTHRITIS FOR INFLAMMATION furosemide 40 mg tablet 40 mg PO QDAY Patient Comments: TAKE ONE TABLET BY MOUTH EVERY MORNING A DIURETIC potassium chloride 10 mEq capsule, extended release 10 meq PO BID Patient Comments: TAKE ONE CAPSULE BY MOUTH TWICE DAILY WITH FOOD Donezepil HCl 5 mg tablet 1 tab PO HS Lorazepam 0.5 mg tablet 1 tab PO QDAY Vitamin C 500 mg tablet 500 mg tablet 1 tab PO BID risperidone [Risperdal] 1 mg tablet 1 mg PO Q12H Qty: 30 0RF Problem List Clinical Impression: AMS (altered mental status) Patient/Caregiver Discharge Instructions Print Language: Icelandic
[2025-04-03 04:11] LABS: Bilirubin,Urine Negative (Negative); Blood,Urine Negative (Negative); Clarity,Urine Clear (Clear/Hazy); Color,Urine Lt-Yellow (Lt Yel-Yel); Culture Indicated,Urine Not Indicated; Glucose, Urine Negative (Negative); Hyaline Casts,Urine < 1 /hpf (0-1); Ketones,Urine Negative (Negative); Leukocyte Esterase,Urine Negative (Negative); Nitrite,Urine Negative (Negative); PH,Urine 5.5 (5.0-7.0); Protein,Urine Negative (Neg - Trace); RBC,Urine 1 /hpf (0-3); Specific Gravity,Urine 1.020 (1.001-1.035); Urobilinogen,Urine Negative mg/dL (0.0-1.0); WBC,Urine < 1 /hpf (0-5)
[2025-04-03] MEDS: SODIUM CHLORIDE 0.9% 1000 ML 1,000 ML 999 ML IV (04:17)
[2025-04-03] MEDS: ONDANSETRON INJ 2 MG/ML INJ 2 ML 4 MG IVP (04:17)
[2025-04-03 04:41] LABS: Base Excess, Venous 0 (-3-3); O2 Saturation, Venous 83 % (96-97); PCO2, Venous 44 mmHg (36-56); PO2, Venous 53 mmHg (15-58); pH, Venous 7.37 (7.33-7.66)
[2025-04-03 04:42] LABS: Lactate (Lactic Acid) 1.2 mMol/L (0.4-2.0)
[2025-04-03 04:46] LABS: Basophils # (Auto) 0.1 Thou/mm3 (0.0-0.2); Basophils % (Auto) 1 % (0-2.5); Eosinophils # (Auto) 0.4 Thou/mm3 (0.0-0.5); Eosinophils % (Auto) 6 % (0-10); Hematocrit 30.3 % (36.0-46.0); Hemoglobin 9.5 g/dL (12.0-16.0); Immature Granulocytes Auto 0.02 Thou/mm3 (0.00-0.00); Lymphocytes # (Auto) 1.3 Thou/mm3 (1.0-4.8); Lymphocytes % (Auto) 17 % (10-50); Mean Corpuscular HGB Conc 31.4 g/dl (31.0-37.0); Mean Corpuscular Hemoglobin 25.7 pg (25.0-35.0); Mean Corpuscular Volume 82 fL (80-100); Monocytes # (Auto) 1.1 Thou/mm3 (0.0-0.8); Monocytes % (Auto) 15 % (0-12); Neutrophils # (Auto) 4.7 Thou/mm3 (1.8-7.7); Neutrophils % (Auto) 61 % (37-80); Nucleated Red Blood Cell # 0.00 Thou/mm3 (0.00-0.00); Nucleated Red Blood Cell % 0 /100 WBC (0); Platelet Count 276 Thou/mm3 (140-440); RDW Standard Deviation 50.4 fL (36.4-46.3); Red Blood Count 3.70 Miln/mm3 (4.00-5.20); White Blood Count 7.6 Thou/mm3 (3.6-11.0)
[2025-04-03 04:47] LABS: Beta Hydroxybutyrate 0.2 mmol/L (<0.6)
[2025-04-03 04:52] LABS: Sed Rate (ESR) 30 mm/hr (0-30)
[2025-04-03 05:08] LABS: B-Type Natriuretic Peptide 616 pg/mL (0-100)
[2025-04-03 05:09] LABS: D-Dimer 268 ng/mL (<600)
[2025-04-03 05:11] LABS: Alanine Aminotransferase 8 U/L (10-49); Albumin, Serum 3.6 gm/dL (3.4-4.8); Albumin/Globulin Ratio 1.8 (1.2-2.2); Alkaline Phosphatase 75 U/L (46-116); Anion Gap 10 (7-16); Aspartate Amino Transferase 20 U/L (0-34); BUN/Creatinine Ratio 32 Ratio (12-20); Bilirubin,Direct < 0.1 mg/dL (0.0-0.3); Bilirubin,Total 0.2 mg/dL (0.3-1.2); Blood Urea Nitrogen 35 mg/dL (9-23); C-Reactive Protein 1.0 mg/dL (0.0-0.9); Calcium 8.6 mg/dL (8.3-10.6); Calcium (Corrected) 8.9 mg/dL (8.5-10.1); Carbon Dioxide 24.0 mMol/L (20.0-31.0); Chloride 112 mMol/L (98-107); Creatinine (Component) 1.1 mg/dL (0.6-1.3); Globulin 2.0 gm/dL (2.3-3.5); Glucose 89 mg/dL (74-106); Lipase 42 U/L (12-53); Magnesium 1.6 mg/dL (1.6-2.6); Osmolality,Calculated 297 (275-295); Potassium 3.1 mMol/L (3.4-5.1); Procalcitonin 0.08 ng/ml (0.0-0.49); Sodium 146 mMol/L (136-145); Thyroid Stimulating Hormone 2.82 uIU/mL (0.55-4.78); Total Protein 5.6 gm/dL (5.7-8.2); Troponin I 0.022 ng/mL (0.0-0.045); eGFR 49 See Note
--- NOTE | 2025-04-03 05:17 | XR_ITS ---
Examination: CT brain head without contrast. 2-D sagittal coronal reconstructions Date and time of exam:April 03 70,025, 0607 hrs. Indications: Altered mental status today Comparison: September 22, 2024 CTDI: vol (mGy):47.3 DLP: (mGycm):944 Technique: Multiple CT axial sections of the brain have been obtained, 5 mm slice thickness. Contrast has not been administered. 2-D sagittal, coronal reconstructions have been obtained Low dose protocols were performed. One or more of the following dose reduction techniques were used; automated exposure control, adjustment of the mA and/or KV according to patient size, use of iterative reconstruction technique. Findings: No significant ventricular enlargement. Intra-axial or extra-axial hemorrhage density is not seen. No mass effect or midline shift Basal cisterns are not remarkable. Fourth ventricle is midline. Cranial vault intact. Impression: Negative for acute hemorrhage, mass effect or midline shift Advise clinical correlation follow-up accordingly.
--- NOTE | 2025-04-03 05:17 | XR_ITS ---
Examination: CT chest, without intravenous contrast. CT abdomen, without intravenous contrast. CT pelvis, without intravenous contrast. 2-D sagittal and coronal reconstructions. 3-D reconstructions. Date and time of exam:April 03, 2025, 0609 hrs. Indications: Chest pain shortness of breath abdominal pain today CTDI vol (mgy) 7.62 DLP (MGycm)486 Technique: Multiple CT images, 3.0 mm slice thickness, obtained chest, abdomen, pelvis, with the high-resolution 64 slice scanner.. Sagittal and coronal 2-D reconstructions are obtained. 3-D reconstructions Low dose protocols were performed. One or more of the following dose reduction techniques were used; automated exposure control, adjustment of the mA and/or KV according to patient size, use of iterative reconstruction technique. Findings: Thoracic aortic calcification no aneurysmal dilatation Pulmonary artery segments are not enlarged. Mild enlargement cardiac contour. There are at least 15 pulmonary nodules throughout the lung christian, the largest in the right upper lobe 15 mm There is extensive infiltrate in both lungs most severe at the right lung base 16mm liver cysts Spleen is not enlarged Gallbladder is not visualized No definite pancreatic mass Atrophic left kidney with significant renal scarring Dense abdominal aortic calcification no aneurysmal dilatation No pericecal inflammatory change No bowel obstruction No diverticulitis. Atrophic uterus Distended urinary bladder Small fat-containing femoral hernias Severe osteopenia Impression: The study is significantly limited without intravenous contrast and secondary to patient motion Extensive nodular parenchymal disease throughout the lungs consistent with pneumonia At least 15 noncalcified pulmonary nodules throughout both lungs, differential would include infectious nodules, pulmonary nodular metastatic disease, follow-up is needed Significant left kidney atrophy with scarring No pericecal inflammatory change No bowel obstruction Distended urinary bladder, clinical correlation advised
[2025-04-03] MEDS: POTASSIUM CHLORIDE 10% 20 MEQ/15 ML UDC 40 MEQ PO (05:29)
--- NOTE | 2025-04-03 06:49 | PD.EDADDENDU ---
Emergency Room Addendum <Natalia Mobley MD - Last Filed: 04/03/25 15:10> Addendum Narrative: Mrs Connell is a 84-year-old female with past medical history of COPD, hypertension, anxiety, dementia and HFpEF presented to [facility] ED earlier this morning verbal and physical aggressive violent behavior. Patient received in a.m. during signout from Dr. Church. Please see Dr. Church's note for details Pending imaging results and further workup Physical Exam General: Awake and in no acute distress. Conversational and non-toxic appearing. HEENT: Normocephalic, atraumatic, mucous membranes dry. Heart: Regular rate and rhythm, no murmurs. Lungs: Clear to auscultation with no wheezing or crackles. Abdomen: Soft, nondistended, nontender, positive bowel sounds. ?No guarding or rebound tenderness. Neurologic: Alert and oriented x3, no gross neurological deficit, and patient able to move all 4 extremities. Extremities: Minimal redness noted around right ankle, LLE swollen > RLE Skin: No ecchymoses. Patient's vitals reviewed after sign-out, was bradycardic and hypotensive at a point likely secondary to benzodiazepine given for agitation, On exam mucous membranes dry was given 500 cc LR bolus, complaining of scabies noted per nursing staff, topical permethrin treatment. Lactate was repeated which was normal, on physical exam left lower extremity more swollen than right, venous Doppler obtained was negative. Patient's CT scan of head was negative, CT chest abdomen pelvis showed suspicion of pneumonia Incidental findings of pulmonary nodules, patient stable on room air effusion resolved, was given IV doxycycline 100 mg x 1 and patient will be discharged on doxycycline for 7 days to complete treatment for pneumonia. Also finding of distended urinary bladder patient had good urine output, In&Out catheter done x 1 showed 200 cc urine as patient was sedated with benzodiazepines for agitation. Urinalysis was negative, patient stable to be discharged. Patient back to baseline, alert and oriented x 3 requesting to be discharged, electrolytes were replaced by Dr. Church. Patient likely had exacerbation of dementia Discharge instructions as below Case discussed with Attending Physician Dr. Dwayne Mobley MD Internal Medicine PGY-2 Disclaimer: This note was dictated by speech recognition. Minor errors in library associate may be present due to voice recognition software. Attestation <Trudy Amanda - Last Filed: 04/03/25 06:59> MD Attestation I, Dr. Rice, have reviewed the history, exam, and assessment of the patient. I have evaluated the patient independently and agree with the plan of care documented by Dr. Mobley. All diagnostic studies were reviewed and discussed. I confirm the diagnosis as documented by the Resident. I was present during the Medical Decision Making for this patient. The patient's plan of care was created between myself and the Resident and consistent with our discussion of the patient's case.
--- NOTE | 2025-04-03 07:29 | XR_ITS ---
Examination: Venous duplex lower extremity sonogram, bilateral. Date and time of exam: April 03, 2025 0953 hours INDICATIONS: Onset bilateral leg swelling today. Technique: Multiple sonographic images of the deep venous system have been obtained. B-mode/2-D grayscale imaging of vascular structures and Doppler spectral analysis (waveforms) and color performed Both legs are examined. Findings: Deep venous systems do not demonstrate abnormal echogenicity. All visualized deep veins exhibit compressibility. All visualized deep veins exhibit augmentation. Impression: Negative for deep vein thrombosis
[2025-04-03] MEDS: SODIUM CHLORIDE 0.9% 500 ML 500 ML 999 ML IV (07:30)
[2025-04-03 08:00] LABS: Lactate (Lactic Acid) 1.0 mMol/L (0.4-2.0)
[2025-04-03] MEDS: PERMETHRIN CR 5% 60 GM TUBE TOP (08:58)
[2025-04-03] MEDS: DOXYCYCLINE INJ 100 MG in SODIUM CHLORIDE 0.9% (POP) 100 ML IV (08:58)
--- NOTE | 2025-04-03 10:45 | PC.NURSE ---
REPORT CALLED TO ALEJANDRO MACKEY [facility] via telephone
== END 2025-04-03 10:50 | disposition skilled nursing facility (03) ==
PROVIDERS: Emergency Medicine; Emergency Provider Emergency Medicine; PCP Hospitalist
DX: F03.C11 Unspecified dementia, severe, with agitation (principal); F03.C18 Unspecified dementia, severe, with other behavioral disturbance; N32.89 Other specified disorders of bladder; M79.89 Other specified soft tissue disorders; R07.9 Chest pain, unspecified; R06.02 Shortness of breath; R10.9 Unspecified abdominal pain; Z78.1 Physical restraint status
CPT/HCPCS: 51701; 36415; 70450; 71045; 71250; 74176; 80053; 81001; 82010; 82248; 82803; 83605; 83690; 83735; 83880; 84145; 84443; 84484; 85025; 85379; 85652; 86140; 87040; 87400; 87811; 93005; 93970; 96361; 96365; 96372; 96375; 99285; J1630; J2405; J3360; J3490; J7030; J7999; A9270